=== PATIENT | female | born 1940 | race Caucasian/White ===

== ENCOUNTER 2019-01-04 17:33 | Emergency (ER) | payer MEDICARE ==
[~2019-01-04] VITALS: Ht 167.6 cm; Wt 102.1 kg
--- OUTSIDE RECORDS SUMMARY | 2019-01-04 17:39 | XMS REPORT | Clinical Summary ---
Author Author User, [employer] Organization Jeannette Horn DO, FACP Address Unknown Phone Allergies, Adverse Reactions, Alerts Allergy Name Reaction Description Start Date Severity Status Provider Allergies Unknown Conditions or Problems Problem Name Problem Code Onset Date Status Entry Date Provider Comment Standard Description Annotate GOUT 274.9 Active Jeannette Horn Gout, unspecified DIABETES MELLITUS, NONINSULIN DEPENDENT (NIDDM) 250.02 Active Jeannette Horn Diabetes mellitus without mention of complication, type II or unspecified type, uncontrolled HYPERTENSION 401.1 Active Jeannette Horn Benign essential hypertension HYPERCHOLESTEROLEMIA 272.0 Active Jeannette Horn Pure hypercholesterolemia FOOT PAIN, RIGHT 729.5 Active Jeannette Horn Pain in limb BACK PAIN 724.5 Active Jeannette Horn Backache, unspecified NEUROPATHY, IDIOPATHIC PERIPHERAL 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 Active Jeannette Horn Unspecified idiopathic peripheral neuropathy Medication List Medication Instructions Start Date Stop Date Generic Name NDC Status Provider Patient Instruction FML 0.1 % [facility] [address] ONE DROP IN RIGHT EYE TID FLUOROMETHOLONE 76148828983 Active Jeannette Horn VOLTAREN 1 % GEL APPLY TO AFFECTED AREA BID DICLOFENAC SODIUM 95862574069 Active Jeannette Horn INDOMETHACIN 50 MG CAPS 1 PO TID INDOMETHACIN 10951440653 Active Jeannette Horn TRIBENZOR 40-10-12.5 MG TABS 1 PO DAILY OLMESARTAN-AMLODIPINE- HCTZ 74906923582 Active Jeannette Horn GABAPENTIN 300 MG CAPS 1 PO DAILY GABAPENTIN 81942101485 Active Jeannette Horn BYSTOLIC 5 MG TABS 1 PO DAILY NEBIVOLOL HCL 88995644042 Active Jeannette Horn ALLOPURINOL 300 MG TABS 1 PO DAILY ALLOPURINOL 66716635879 Active Jeannette Horn ASPIRIN 81 MG TAB 1 PO every other day ASPIRIN 74108577378 Active Jeannette Horn MULTIVITAMINS TABS 1 PO QD MULTIPLE VITAMIN Active Jeannette Horn Vital Signs Date Name Value Unit Range Description blood pressure, diastolic - 8462-4 78 mm[Hg] BP waggoner blood pressure, systolic - 8480-6 130 mm[Hg] BP sys height E&M - 8302-2 66.5 [in_us] Bdy height pulse rate E&M - 8867-4 84 /min Heart rate respiratory rate E&M - 9279-1 14 /min Resp rate temperature E&M 98.9 [degF] Body temperature weight E&M - 3141-9 233 [lb_av] Weight Measured Diagnostic Results Date Name Value Unit Range Description Clinical Lists Update: CBC,CMP,FLP,TSH,FREE T4,HGA1C,FERRITIN,ESR,MICROALBUMIN - Chemistry Estimated Glomerular Filtration Rate (calc) 74 mL/min/1.73m2 glucose, plasma fasting 149 mg/dL albumin, serum 4.1 g/dL alkaline phosphatase, serum 98 U/L urea nitrogen, blood 20 mg/dL calcium, serum 9.5 mg/dL chloride, serum 108 mmol/L cholesterol, serum 199 mg/dL carbon dioxide, venous blood 20 mmol/L creatinine, serum 0.76 mg/dL very low density lipoproteins 53 mg/dL cholesterol/HDL ratio, serum, percent 5.0 anion gap, serum 16 sodium, serum 140 mmol/L triglyceride, serum, fasting 266 mg/dL bilirubin, serum, total 0.6 mg/dL alanine aminotransferase (SGPT), serum 29 U/L aspartate aminotransferase (SGOT), serum 25 U/L protein, total, serum 6.3 g/dL potassium, serum 4.3 mmol/L LDL cholesterol, serum 106 mg/dL thyroid stimulating hormone, serum 1.43 u[iU]/mL hemoglobin A1C, blood, as % of total hemoglobin 6.70 % HDL cholesterol, serum 40 mg/dL thyroxine, serum, free 0.99 ng/dL ferritin, serum 260.91 ng/mL Clinical Lists Update: CBC,CMP,FLP,TSH,FREE T4,HGA1C,FERRITIN,ESR,MICROALBUMIN - Hematology erythrocyte sedimentation rate 6 mm/h hematocrit, blood 42.2 % hemoglobin, blood 14.6 g/dL platelet count 288 10*3/mm3 erythrocyte (RBC) count 4.52 10*6/mm3 leukocyte count, blood 7.63 10*3/mm3 mean corpuscular volume, RBC 93.4 fL red blood cell distribution width 12.9 % Clinical Lists Update: CBC,CMP,FLP,TSH,FREE T4,HGA1C,FERRITIN,ESR,MICROALBUMIN - Urinalysis microalbumin, urine, semiquantitative 37.6 mg/dL Encounters Code Encounter Date Provider Facility CPT-54393 [facility] Vst, New Level III 09:58:34 CDT Jeannette [facility] OFF[facility]
--- OUTSIDE RECORDS SUMMARY | 2019-01-04 17:39 | XMS REPORT ---
Author Author [facility] Medical Staff Organization [employer] [facility] Address [address], [place] [address] Phone [phone] Care Team Providers Care Crop Research Scientist Name Role Phone JOSHUA AMAYA PP [phone] Summary purpose TRANSITION OF CARE AUTO GENERATION Chief Complaint and Reason for Visit No authorized Reason for Visit (Admitting Diagnosis) is available for this visit. Problem list No authorized problems tracked for continuity of care are available for this visit. Encounters No authorized problems tracked for encounter diagnoses are available for this visit. Medications No home medications recorded for this patient visit Allergies, adverse reactions, alerts Allergen Category Ingredient Status Reaction Severity Onset IV Dye, Iodine Containing Contrast Media Drug Allergy IV Dye, Iodine Containing Contrast Media Confirmed or Verified Nausea Hydrocodone Drug Allergy Hydrocodone Confirmed or Verified bad nightmares Immunizations No immunizations recorded for this patient visit Relevant diagnostic tests and/or laboratory data RESULTS Radiology Results [id number] MRI C-SPINE W/O CONT PACs Image DATE OF EXAM: Oct 25 2014 MRI 0218-MRI C SPINE WO CONTRAST : RADIOLOGY REPORT DATE OF SERVICE: 10/25/14 HISTORY: Patient has neck pain, left arm numbness, history of fall. [facility] CERVICAL SPINE WITHOUT CONTRAST 1430 HOURS Multiplanar multisequence study was performed. There is reversal of normal lordosis at approximately C4 to C6. There is disc-osteophyte complex on the right at C5-C6. This is moderate and chronic. There is mild contact with the spinal cord due to this disc protrusion and osteophyte formation. This is essentially unchanged from 12/06/2012. There is narrowing of the AP dimension of the spinal canal and thecal sac in the right paracentral location of mild degree at C5-C6 disc level. There is also moderate foraminal narrowing on the right due to presumed osteophyte. Left neural foramen is widely patent. Remaining discs fail to show any disc protrusion or bulging. No canal stenosis is seen anywhere else and neural foramina are patent at all other levels. Facet joints align normally. Cervicomedullary junction is at normal level and the cervical spinal cord has normal signal. 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 This is unchanged from 12/06/2012 exam. There is foraminal narrowing of moderate degree on the right at this same level. The remainder of the study fails to show any other significant findings. DO GARCIA Rivers/mariana 10/25/2014 14:52:10/25/2014 15:14:17 cc:Joshua Romero PA-C This document has been electronically Signed by: On: DATE OF EXAM: Oct 25 2014 MRI 0218-MRI C SPINE WO CONTRAST : RADIOLOGY REPORT DATE OF SERVICE: 10/25/14 HISTORY: Patient has neck pain, left arm numbness, history of fall. [facility]ING CERVICAL SPINE WITHOUT CONTRAST 1430 HOURS Multiplanar multisequence study was performed. There is reversal of normal lordosis at approximately C4 to C6. There is disc-osteophyte complex on the right at C5-C6. This is moderate and chronic. There is mild contact with the spinal cord due to this disc protrusion and osteophyte formation. This is essentially unchanged from 12/06/2012. There is narrowing of the AP dimension of the spinal canal and thecal sac in the right paracentral location of mild degree at C5-C6 disc level. There is also moderate foraminal narrowing on the right due to presumed osteophyte. Left neural foramen is widely patent. Remaining discs fail to show any disc protrusion or bulging. No canal stenosis is seen anywhere else and neural foramina are patent at all other levels. Facet joints align normally. Cervicomedullary junction is at normal level and the cervical spinal cord has normal signal. 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 This is unchanged from 12/06/2012 exam. There is foraminal narrowing of moderate degree on the right at this same level. The remainder of the study fails to show any other significant findings. DO Lon Rivers 10/25/2014 14:52:10/25/2014 15:14:17 cc:Joshua Romero PA-C This document has been electronically Signed by: PATTY LI DO On: Oct 25 20144:46P Result Amended on 2014-10-25 at 16:46:41. Previous status was AK. MRI L-SPINE W/O CONT PACs Image DATE OF EXAM: Oct 25 2014 MRI 0085-MRI L SPINE WO CONTRAST : RADIOLOGY REPORT DATE OF SERVICE: 10/25/14 HISTORY: Patient has back pain, pain in feet, history of fall. [facility]ING LUMBAR SPINE WITHOUT INTRAVENOUS CONTRAST 1430 HOURS Multiplanar multisequence study was performed. There is spondylolisthesis of L4 on L5 which measures approximately 5 mm and is unchanged from 12/06/2012. No definite spondylolysis at L4 is seen. There is decreased signal in the L1 vertebral body centrally on T1 and T2 weighted images. This suggests sclerosis. This is unchanged from 12/06/2012. Henceforth any comparison is due to 12/06/2012 study date. Degenerative endplate change is seen at L3-L4 and L4-L5. There is prominent narrowing of the L2-L3 interspace as well as L3-L4 and L4-L5 interspace. The L1-L2 disc shows minute amount of bulge and no central canal stenosis. The neural foramina are widely patent bilaterally. There is mild degenerative change in facet joints at L1-L2. At the L2-L3 disc there is left paracentral and lateral osteophyte formation of mild to moderate degree. This causes extradural impression on the thecal sac. No central canal stenosis is seen. The neural foramen is moderately narrowed on the left by osteophyte. At L3-L4 disc level there is disc-osteophyte complex diffusely from right to left this along with prominent ligamentum flavum causes canal to be lower limits of normal at disc level. The neural foramen on the left is mildly narrowed. The right neural foramen is narrowed. At L4-L5 there is spondylolisthesis. Marked degenerative change in facet joints is seen. There does not appear to be any osteophyte formation or disc protrusion in relation to the L5 vertebral body. Prominent ligamentum flavum is seen and canal is lower limits of normal. The foramina are patent bilaterally at this level. At L5-S1 there is no disc protrusion or bulging. No central canal stenosis or foraminal narrowing are seen. Degenerative change of the facet joints is severe at this level as well. No paraspinal abnormality is seen. IMPRESSION: Numerous findings as given in body of report. Patty Li DO MW/mariaan 10/25/2014 14:52:00 / 10/25/2014 15:16:57 cc:Joshua Romero PA-C This document has been electronically Signed by: On: DATE OF EXAM: Oct 25 2014 MRI 0085-MRI L SPINE WO CONTRAST : RADIOLOGY REPORT DATE OF SERVICE: 10/25/14 HISTORY: Patient has back pain, pain in feet, history of fall. MAGNETIC RESONANCE IMAGING LUMBAR SPINE WITHOUT INTRAVENOUS CONTRAST 1430 HOURS Multiplanar multisequence study was performed. There is spondylolisthesis of L4 on L5 which measures approximately 5 mm and is unchanged from 12/06/2012. No definite spondylolysis at L4 is seen. There is decreased signal in the L1 vertebral body centrally on T1 and T2 weighted images. This suggests sclerosis. This is unchanged from 12/06/2012. Henceforth any comparison is due to 12/06/2012 study date. Degenerative endplate change is seen at L3-L4 and L4-L5. There is prominent narrowing of the L2-L3 interspace as well as L3-L4 and L4-L5 interspace. The L1-L2 disc shows minute amount of bulge and no central canal stenosis. The neural foramina are widely patent bilaterally. There is mild degenerative change in facet joints at L1-L2. At the L2-L3 disc there is left paracentral and lateral osteophyte formation of mild to moderate degree. This causes extradural impression on the thecal sac. No central canal stenosis is seen. The neural foramen is moderately narrowed on the left by osteophyte. At L3-L4 disc level there is disc-osteophyte complex diffusely from right to left this along with prominent ligamentum flavum causes canal to be lower limits of normal at disc level. The neural foramen on the left is mildly narrowed. The right neural foramen is narrowed. At L4-L5 there is spondylolisthesis. Marked degenerative change in facet joints is seen. There does not appear to be any osteophyte formation or disc protrusion in relation to the L5 vertebral body. Prominent ligamentum flavum is seen and canal is lower limits of normal. The foramina are patent bilaterally at this level. At L5-S1 there is no disc protrusion or bulging. No central canal stenosis or foraminal narrowing are seen. Degenerative change of the facet joints is severe at this level as well. No paraspinal abnormality is seen. IMPRESSION: Numerous findings as given in body of report. Patty Li DO /mariana 10/25/2014 14:52:00 / 10/25/2014 15:16:57 cc:Joshua Romero PA-C This document has been electronically Signed by: PATTY LI DO On: Oct 25 20144:46P Result Amended on 2014-10-25 at 16:46:47. Previous status was AK. History of procedures No procedures recorded for this patient visit. Functional status No functional or cognitive status observations are available for this visit. Vital signs No authorized vital signs are available for this visit. Social history No Social History or smoking status observations were recorded for this visit. ( Unknown if ever smoked.) Treatment Plan No treatment plan text is available for this visit. Hospital discharge instructions No discharge instruction text is available for this visit.
--- OUTSIDE RECORDS SUMMARY | 2019-01-04 17:39 | XMS REPORT | Clinical Summary ---
Author Author User, [employer] Organization Jeannette Horn DO, FACP Address Unknown [...] ONE DROP IN RIGHT EYE TID FLUOROMETHOLONE 41068239725 Active Jeannette Horn VOLTAREN 1 % GEL APPLY TO AFFECTED AREA BID DICLOFENAC SODIUM 89103872701 Active Jeannette Horn INDOMETHACIN 50 MG CAPS 1 PO TID INDOMETHACIN 34755857786 Active Jeannette Horn TRIBENZOR 40-10-12.5 MG TABS 1 PO DAILY OLMESARTAN-AMLODIPINE- HCTZ 25045378073 Active Jeannette Horn GABAPENTIN 300 MG CAPS 1 PO DAILY GABAPENTIN 23796129622 Active Jeannette Horn BYSTOLIC 5 MG TABS 1 PO DAILY NEBIVOLOL HCL 85494631370 Active Jeannette Horn ALLOPURINOL 300 MG TABS 1 PO DAILY ALLOPURINOL 02736240919 Active Jeannette Horn ASPIRIN 81 MG TAB 1 PO every other day ASPIRIN 99646644520 Active Jeannette Horn MULTIVITAMINS TABS 1 PO [...] E&M - 3141-9 233 [lb_av] Weight Measured Encounters Code Encounter Date Provider Facility CPT-61004 [facility] Vst, New Level III 09:58:34 CDT Jeannette [facility]
--- OUTSIDE RECORDS SUMMARY | 2019-01-04 17:40 | XMS REPORT ---
Author Author [facility] Medical Staff Organization [facility] [employer] [facility] Address [address], [place] [address] Phone [phone] Care Team Providers Care Network Strategist Name Role Phone JOSHUA AMAYA PP [phone] Summary purpose TRANSITION OF CARE AUTO GENERATION Chief Complaint and Reason for Visit Admit Diagnosis 1 CERVICALGIA Problem list No authorized problems tracked for [...] tests and/or laboratory data RESULTS Radiology Results [id number] MRI C-SPINE W/O CONT PACs Image DATE [...] DO GARCIA Rivers/mariana 10/25/2014 14:52:10/25/2014 15:14:17 cc:Joshua Simons PA-C This document has been electronically Signed [...] DO GARCIA Rivers/mariana 10/25/2014 14:52:10/25/2014 15:14:17 cc:Joshua Nick PA-C This document has been electronically Signed by: JEN MOORE, PATTY On: Oct 25 20144:46P Result Amended on [...] in body of report. Patty Li DO /va 10/25/2014 14:52:00 / 10/25/2014 15:16:57 cc:Joshua Simons PA-C This document has been electronically Signed [...] in body of report. Patty Li DO MW/nh 10/25/2014 14:52:00 / 10/25/2014 15:16:57 cc:Joshua Simons PA-C This document has been electronically Signed by: PATYT LI DO On: Oct 25 20144:46P Result Amended on 2014-10-25 at 16:46:47. Previous status was AK. History of procedures Procedure Code Code Type Description Date Performed Performing Physician [id number] CPT-4 MRI NECK SPINE W/O DYE 10-25-2014 JOSHUA SIMONS [id number] CPT-4 MRI LUMBAR SPINE W/O DYE 10-25-2014 JOSHUA SIMONS Functional status No functional or cognitive status [...]
[2019-01-04] MEDS ORDERED: AMLODIPINE (18:03)
[2019-01-04] MEDS ORDERED: AMOXICILLIN 500 MG CAPSULE (18:03)
[2019-01-04] MEDS ORDERED: GLYBURIDE 5 MG TABLET (18:03)
[2019-01-04] MEDS ORDERED: OLMESARTAN (18:03)
[2019-01-04] MEDS ORDERED: ALLOPURINOL 100 MG TABLET (18:03)
[2019-01-04] MEDS ORDERED: HYDROCODONE-ACETAMIN 10-325 MG (18:03)
[2019-01-04] MEDS ORDERED: HYDROCHLOROTHIAZIDE (18:03)
[2019-01-04] MEDS ORDERED: METOPROLOL SUCC ER 50 MG TAB (18:03)
[2019-01-04 18:07] VITALS: BP_SYST 145; BP_SYST 157; BP_SYST 162; BP_DIAS 71; BP_DIAS 82; BP_DIAS 84
[2019-01-04 18:51] LABS: BILIRUBIN,URINE NEGATIVE (NEGATIVE); CLARITY,URINE SLIGHTLY CLOUDY; COLOR,URINE YELLOW; GLUCOSE, URINE (UA) NEGATIVE (NEGATIVE); KETONES,URINE NEGATIVE (NEGATIVE); LEUKOCYTE ESTERASE ,URINE 3+ (NEGATIVE); NITRITE,URINE NEGATIVE (NEGATIVE); PH,URINE 6 (5-9); PROTEIN,URINE 3+ (NEGATIVE); UROBILINOGEN,URINE NORMAL (NORMAL)
--- NOTE | 2019-01-04 18:59 | ED General ---
General Chief Complaint: Dizziness/Syncope Stated Complaint: DIZZY / BLACKING OUT Nursing Triage Note: PT CO OF DIZZINESS SINCE WEDNESDAY, WAS SEEN BY PCP, EYE , NO RELIEF. PT STATES WHEN SHE LAYS DOWN SHE GETS DIZZY. UNABLE TO LAY FLAT FOR MRI OF HEAD TODAY. PT ALSO STATES HAS NECK PAIN /10 FROM ARTHRITIS 07/13 FROM R KNEE PAIN Nursing Sepsis Screen: No Definite Risk Source of Information: Patient (SOMEWHAT VAGUE HISTORIAN), Family (DAUGHTER) History of Present Illness Date Seen by Provider: Jan 04, 2019 Time Seen by Provider: 18:10 Initial Comments PT ARRIVES VIA POV FROM HOME PT STATES "I DYLLAN BLACK OUT" --SYMPTOMS ONGOING SINCE WEDNESDAY IS UNCLEAR IF SHE HAS ACTUALLY LOST CONSCIOUSNESS, BUT STATES SOMETIMES "THINGS GO BLACK" AND ONE TIME SHE FELL/LEANED AGAINST THE WALL. HAS BEEN DIZZY--MOSTLY WHEN SHE LAYS DOWN. NO HEADACHE NO NEW CHANGES IN VISION--HAS MACULAR DEGENERATION IN RIGHT EYE, AND SAW HER EYE DR YESTERDAY AND WAS TOLD THAT HER MACULAR DEGENERATION HAS GOTTEN MUCH WORSE SINCE OCTOBER BUT HER OPTIC NERVE LOOKED GOOD HAS ALSO BEEN SEEN BY SUPERVISOR MOLD SHOP UVALDO SIMONS AND HAD MRI ORDERED FOR TODAY, BUT DID NOT HAVE IT DONE, BECAUSE SHE CAN'T LAY FLAT NO HEADACHE NO NEW PARESTHESIAS OR MOTOR DEFICITS---HAS ONGOING TINGLING IN HER HANDS, WITH CHRONIC NECK/BACK/SHOULDER AND ARM PAIN. ALSO CHRONIC KNEE PAIN --HAS NOT TAKEN HER PAIN MEDICATIONS TODAY NO CHEST PAIN NO SHORTNESS OF BREATHS STATES BLOOD PRESSURE HAS BEEN "UP AND DOWN"--HIGHEST WAS 176/58 AND LOWEST WAS 140/80 NO NAUSEA/VOMITING/DIARRHEA NO ABDOMINAL PAIN NO FEVER OR RECENT ILLNESS HAS ONGOING URINARY FREQUENCY AND NOCTURIA, BUT HAS INCREASED RECENTLY--THOUGHT TO BE DUE TO BP MEDICATION WITH DIURETIC. NO PAIN ON URINATION OR LOWER ABDOMEN OR LOW BACK PAIN DID HAVE 2 TEETH PULLED 1 WEEK AGO AND HAS BEEN ON AMOXIL, HAS 2 PILLS LEFT. DOES HAVE CHRONIC SINUS PROBLEMS--SAW ENT 3 YEARS AGO, DOES NOT TAKE MEDICATIONS FOR HER SINUSES. NO SINUS PAIN OR DRAINAGE AT THIS TIME. PT WAS DX WITH UTERINE CANCER APRIL 2017. HAS HAD HYST/BSO, AND HAS HAD RECURRENCE OF TUMOR IN [place] AND HAD BIOPSY JUL 2018. HAS HAD SOME VAGINAL BLEEDING AND DISCHARGE WAS VERY BLOODY TODAY WHEN SHE URINATED. NO VAGINAL PAIN PT [facility] [place] AND IS ON KEYTRUDA NO NEW MEDICATIONS OR CHANGES IN DOSES PT IS DIABETIC BUT DOES NOT OWN A GLUCOMETER, THEREFORE NEVER CHECKS HER BLOOD GLUCOSE PCP: VERITO SIMONS Allergies and Home Medications Allergies Coded Allergies: No Known Drug Allergies (Unverified , 01/04/19) Home Medications Nitrofurantoin Monohyd/M-Cryst 100 Mg Capsule, 100 MG PO BID Prescribed by: NYDIA SOFIA on 01/04/192046 Patient Home Medication List Home Medication List Reviewed: Yes Review of Systems Review of Systems Constitutional: see HPI; No chills, No diaphoresis; dizziness; No fever EENTM: see HPI Respiratory: no symptoms reported Cardiovascular: see HPI, edema (BETTER THAN NORMAL), other (NEAR-SYNCOPE) Gastrointestinal: no symptoms reported Genitourinary: see HPI Musculoskeletal: see HPI Skin: no symptoms reported Psychiatric/Neurological: See HPI; Denies Headache Hematologic/Lymphatic: No Symptoms Reported Immunological/Allergic: no symptoms reported Past [id number]-[id number] Hx Patient Social History Alcohol Use: Denies Use Recreational Drug Use: No Smoking Status: Never a Smoker Recent Foreign Travel: No Contact w/Someone Who Travel: No Recent Infectious Disease Expo: No Recent Hopitalizations: No Past Medical History Surgeries: Yes (HYST/BSO 04/2017; BIOPSY OF VAGINAL MASS/RECURRENT TUMOR 2017) Appendectomy, Hysterectomy, Oophorectomy, Orthopedic Respiratory: No Cardiac: Yes Chronic Edema/Swelling, Hypertension Neurological: Yes (CHRONIC PARESTHESIAS TO HANDS-DUE TO CHRONIC NECK PAIN/ DEGENERATIVE DISC DISEASE) 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, 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 Genitourinary: No Gastrointestinal: No Musculoskeletal: Yes (CHRONIC BACK, NECK AND KNEE PAIN ) Degenerate Disk Disease, Arthritis, Chronic Back Pain, Gout Endocrine: Yes (DOES NOT OWN GLUCOMETER/NEVER CHECKS BLOOD GLUCOSE) Diabetes, Non-Insulin dep HEENT: Yes Macular Degeneration Cancer: Yes (UTERINE CANCER DX APRIL 2017--S/P HYST/BSO AND IS CURRENTLY ON KEYTRUDA) Uterine Did You Recieve Any Treatments: Yes What Type of Treatment Did You: Chemotherapy, Surgical Intervention Psychosocial: No Integumentary: No Blood Disorders: No Physical Exam Vital Signs Vital Signs - First Documented 01/04/19 17:40 Temp 97.9 Pulse 90 Resp 18 B/P (MAP) 156/85 (108) Pulse Ox 97 Capillary Refill : Less Than 3 Seconds Height, Weight, BMI Height: 5'6.00" Weight: 225lbs. oz. 102.250947dq; BMI Method:Stated General Appearance: No Apparent Distress Eyes: Bilateral Eye Normal Inspection, Bilateral Eye PERRL HEENT: PERRL/EOMI, Normal ENT Inspection, Pharynx Normal Neck: Full Range of Motion, Normal Inspection, Supple; No Carotid Bruit, No JVD ; Tender Lateral, Tender Midline, Other (CHRONIC PAIN/TENDERNESS TO NECK) Respiratory: Normal Breath Sounds, No Respiratory Distress Cardiovascular: Regular Rate, Rhythm, No Murmur, Normal Peripheral Pulses Gastrointestinal: No Organomegaly, No Pulsatile Mass, Non Tender, Soft Back: Normal Inspection, No CVA Tenderness Extremity: Normal Capillary Refill, No Calf Tenderness, Pedal Edema (TRACE BILATERALLY) Neurologic/Psychiatric: Alert, Oriented x3, No Motor/Sensory Deficits, Normal Mood/Affect, 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 Norm as Tested Skin: Normal Color, Warm/Dry; No Rash Progress/Results/Core Measures Suspected Sepsis Recent Fever Within 48 Hours: No Infection Criteria Present: None New/Unexplained Altered Menta: No Sepsis Screen: No Definite Risk SIRS Temperature:97.9 Pulse: 90 Respiratory Rate: 18 Laboratory Tests 01/04/19 19:10: White Blood Count 7.7 Blood Pressure 162 /82 Mean: 108 Laboratory Tests 01/04/19 19:10: Creatinine 0.90, INR Comment 1.0, Platelet Count 234, Total Bilirubin 0.4 Results/Orders Lab Results Laboratory Tests Test 01/04/19 18:41 01/04/19 19:10 Range/Units Urine Color YELLOW Urine Clarity SLIGHTLY CLOUDY Urine pH 6 5-9 Urine Specific [employer] 1.015 L 1.016-1.022 Urine Protein 3+ H NEGATIVE Urine Glucose (UA) NEGATIVE NEGATIVE Urine Ketones NEGATIVE NEGATIVE Urine Nitrite NEGATIVE NEGATIVE Urine Bilirubin NEGATIVE NEGATIVE Urine Urobilinogen NORMAL NORMAL MG/DL Urine Leukocyte Esterase 3+ H NEGATIVE Urine RBC (Auto) 5+ H NEGATIVE Urine RBC TNTC H /HPF Urine WBC >100 H /HPF Urine Squamous Epithelial Cells 5-10 /HPF Urine Crystals NONE /LPF Urine Bacteria MODERATE H /HPF Urine Casts NONE /LPF Urine Mucus NEGATIVE /LPF Urine Culture Indicated YES White Blood Count 7.7 4.3-11.0 10^3/uL Red Blood Count 3.65 L 4.35-5.85 10^6/uL Hemoglobin 12.2 11.5-16.0 G/DL Hematocrit 36 35-52 % Mean Corpuscular Volume 98 80-99 FL Mean Corpuscular Hemoglobin 33 25-34 PG Mean Corpuscular Hemoglobin Concent 34 32-36 G/DL Red Cell Distribution Width 12.5 10.0-14.5 % Platelet Count 234 130-400 10^3/uL Mean Platelet Volume 8.7 7.4-10.4 FL Neutrophils (%) (Auto) 64 42-75 % Lymphocytes (%) (Auto) 22 12-44 % Monocytes (%) (Auto) 9 0-12 % Eosinophils (%) (Auto) 4 0-10 % Basophils (%) (Auto) 1 0-10 % Neutrophils # (Auto) 5.0 1.8-7.8 X 10^3 Lymphocytes # (Auto) 1.7 1.0-4.0 X 10^3 Monocytes # (Auto) 0.7 0.0-1.0 X 10^3 Eosinophils # (Auto) 0.3 0.0-0.3 10^3/uL Basophils # (Auto) 0.0 0.0-0.1 10^3/uL Prothrombin Time 13.6 12.2-14.7 SEC INR Comment 1.0 0.8-1.4 Activated Partial Thromboplast Time 31 24-35 SEC Sodium Level 139 135-145 MMOL/L Potassium Level 3.7 3.6-5.0 MMOL/L Chloride Level 103 98-107 MMOL/L Carbon Dioxide Level 26 21-32 MMOL/L Anion Gap 10 5-14 MMOL/L Blood Urea Nitrogen 19 H 7-18 MG/DL Creatinine 0.90 0.60-1.30 MG/DL Estimat Glomerular Filtration Rate 60 BUN/Creatinine Ratio 21 Glucose Level 102 70-105 MG/DL Calcium Level 9.9 8.5-10.1 MG/DL Corrected Calcium 9.9 8.5-10.1 MG/DL Magnesium Level 2.1 1.8-2.4 MG/DL Total Bilirubin 0.4 0.1-1.0 MG/DL Aspartate Amino Transf (AST/SGOT) 23 5-34 U/L Alanine Aminotransferase (ALT/SGPT) 21 0-55 U/L Alkaline Phosphatase 75 40-136 U/L Troponin I < 0.028 <0.028 NG/ML Total Protein 6.6 6.4-8.2 GM/DL Albumin 4.0 3.2-4.5 GM/DL TSH [place] Testing 1.56 0.35-4.94 UIU/ML My Orders Orders - NYDIA SOFIA DO Ct Head/Face/Cervical Wo (01/04/19 18:10) Cbc With Automated Diff (01/04/19 18:10) Comprehensive Metabolic Panel (01/04/19 18:10) Magnesium (01/04/19 18:10) Protime With Inr (01/04/19 18:10) Partial Thromboplastin Time (01/04/19 18:10) Thyroid Analyzer (01/04/19 18:10) Troponin I (01/04/19 18:10) Ua Culture If Indicated (01/04/19 18:10) Ekg Tracing (01/04/19 18:10) Monitor-Rhythm Ecg Trace Only (01/04/19 18:10) Orthostatic Vital Signs (Adult (01/04/19 18:10) Urine Culture (01/04/19 18:41) Ketorolac Injection (Toradol Injection) (01/04/19 19:45) Ceftriaxone For Iv Use (Rocephin For I (01/04/19 19:45) Chest 1 View, Ap/Pa Only (01/04/19 19:49) Saline Lock/Iv-Start (01/04/19 19:50) Ns Iv 1000 Ml (Sodium Chloride 0.9%) (01/04/19 19:50) Ns Iv 1000 Ml (Sodium Chloride 0.9%) (01/04/19 19:51) Medications Given in ED Current Medications Medications Dose Ordered Sig/Emily Route Start Time Stop Time Status Last Admin Dose Admin Ceftriaxone Sodium 1000 mg/ Sterile Water 10 ml @ 200 mls/hr ONCE ONCE IV 01/04/19 19:45 01/04/19 19:47 DC 01/04/19 19:54 200 MLS/HR Ketorolac Tromethamine 30 mg ONCE ONCE IVP 01/04/19 19:45 01/04/19 19:46 DC 01/04/19 19:54 30 MG Sodium Chloride 1,000 ml @ 0 mls/hr Q0M ONCE IV 01/04/19 19:50 01/04/19 19:53 DC 01/04/19 19:55 0 MLS/HR Vital Signs/I&O 01/04/19 01/04/19 17:40 18:07 Temp 97.9 Pulse 90 90 96 101 Resp 18 B/P (MAP) 156/85 (108) 162/82 (108) 157/84 (108) 145/71 (95) Pulse Ox 97 Capillary Refill : Less Than 3 Seconds Blood Pressure Mean: 108 Progress Note : Progress Note ASYMPTOMATIC DURING ER STAY ECG Initial ECG Impression Date: Jan 04, 2019 Initial ECG Impression Time: 18:22 Initial ECG Rate: 85 Initial ECG Rhythm: Normal Sinus Initial ECG Comparisson: No Previous ECG Available Diagnostic Imaging Comments CT HEAD/MAXILLOFACIALS/CERVICAL SPINE--NO ACUTE PROCESS, SEVERE DEGENERATIVE CHANGES OF CERVICAL SPINE, WITH MILD CANAL STENOSIS--PER RADIOLOGIST REPORT AT 1935 CXR--NO ACUTE PROCESS, PER RADIOLOGIST REPORT @ 2108 Reviewed: Reviewed by Me Departure Impression Primary Impression: Dizziness Additional Impressions: Near syncope UTI (urinary tract infection) Uterine cancer Disposition: 01 HOME, SELF-CARE Condition: Improved Departure-Patient Inst. Referrals: NO,LOCAL PHYSICIAN (PCP/Family) Primary Care Physician Patient Instructions: Dizziness, Nonvertigo, (DC), Near Fainting (DC), Urinary Tract Infections in Adults Add. Discharge Instructions: HOME, REST LOTS OF CLEAR LIQUIDS--NO COFFEE, POP OR TEA FOLLOW UP WITH YOUR DR IN 2-3 DAYS FOR FURTHER CARE RETURN TO ER IF WORSE All discharge instructions reviewed with patient and/or family. Voiced understanding. Scripts Nitrofurantoin Monohyd/M-Cryst (Macrobid 100 mg Capsule) 100 Mg Capsule 100 MG PO BID, #20 CAP Prov: NYDIA SOFIA DO 01/04/19 NYDIA SOFIA DO Jan 04, 2019 18:59
--- NOTE | 2019-01-04 19:02 | NUR ---
REPORT TO MAYRA HERNANDEZ
[2019-01-04 19:16] LABS: BACTERIA,URINE MODERATE /HPF; RBC,URINE TNTC /HPF; WBC,URINE >100 /HPF
[2019-01-04 19:20] LABS: BASOPHILS % (AUTO) 1 % (0-10); EOSINOPHILS # (AUTO) 0.3 10^3/uL (0.0-0.3); EOSINOPHILS % (AUTO) 4 % (0-10); HEMATOCRIT 36 % (35-52); HEMOGLOBIN 12.2 G/DL (11.5-16.0); LYMPHOCYTES # (AUTO) 1.7 X 10^3 (1.0-4.0); LYMPHOCYTES % (AUTO) 22 % (12-44); MEAN CORPUSCULAR HEMOGLOBIN 33 PG (25-34); MEAN CORPUSCULAR HGB CONC 34 G/DL (32-36); MEAN CORPUSCULAR VOLUME 98 FL (80-99); MEAN PLATELET VOLUME 8.7 FL (7.4-10.4); MONOCYTES # (AUTO) 0.7 X 10^3 (0.0-1.0); MONOCYTES % (AUTO) 9 % (0-12); NEUTROPHILS % (AUTO) 64 % (42-75); PLATELET COUNT 234 10^3/uL (130-400); RED CELL DISTRIBUTION WIDTH 12.5 % (10.0-14.5); WHITE BLOOD COUNT 7.7 10^3/uL (4.3-11.0)
--- NOTE | 2019-01-04 19:30 | Diagnostic Imaging Report ---
PROCEDURE: CT head, face, and cervical spine without contrast. TECHNIQUE: Multiple contiguous axial images were obtained through the head, neck, and facial bones without the use of intravenous contrast. Sagittal and coronal reformations through the cervical spine and facial bones were also performed. Auto Exposure Controls were utilized during the CT exam to meet ALARA standards for radiation dose reduction. INDICATION: Dizziness since Wednesday. Neck pain. COMPARISON: None. FINDINGS: CT HEAD: No acute intracranial hemorrhage is seen. There is no significant midline shift or mass effect. Ventricles and cortical sulci appear age-appropriate. Scattered areas of hypoattenuation in the white matter are likely from chronic microvascular disease. No CT evidence of acute territorial ischemia seen. The calvarium appears intact. CT FACE: The pterygoid plates are intact. The mandible is intact. The zygomatic arches are intact. The visualized paranasal sinuses are clear, although the right frontal sinus is not well pneumatized. The globes appear intact. No postseptal edema is seen. The soft tissues about the face are otherwise unremarkable. The patient is partially edentulous. CT CERVICAL SPINE: There is mild reversal of the cervical lordosis centered at C5. There is grade 1 anterolisthesis of C3 on C4. There are severe degenerative changes at C3-4, C4-5, C5-6 and C6-7. Prominent posterior disc osteophyte complex at C5-6 causes mild spinal canal narrowing. No acute fractures seen. There is apical pleural scarring. The surrounding soft tissues are otherwise unremarkable. IMPRESSION: 1. No acute intracranial hemorrhage or CT evidence of acute territorial ischemia. 2. No acute facial injury or postseptal orbital edema. 3. Advanced degenerative changes in the cervical spine. No acute fracture seen. Dictated by: Dictated on workstation # [id number]
[2019-01-04 19:34] LABS: PROTHROMBIN TIME PATIENT 13.6 SEC (12.2-14.7)
[2019-01-04 19:39] LABS: ALANINE AMINOTRANSFERASE 21 U/L (0-55); ALKALINE PHOSPHATASE 75 U/L (40-136); BILIRUBIN,TOTAL 0.4 MG/DL (0.1-1.0); BUN/CREATININE RATIO 21; CALCIUM 9.9 MG/DL (8.5-10.1); CARBON DIOXIDE 26 MMOL/L (21-32); CHLORIDE 103 MMOL/L (98-107); GFR ESTIMATED 60; GLUCOSE 102 MG/DL (70-105); MAGNESIUM 2.1 MG/DL (1.8-2.4); POTASSIUM 3.7 MMOL/L (3.6-5.0); SODIUM 139 MMOL/L (135-145); TOTAL PROTEIN 6.6 GM/DL (6.4-8.2)
[2019-01-04] MEDS ORDERED: cefTRIAXone FOR IV USE 1,000 MG in WATER (STERILE) FOR INJECTION 10 ML IV ONE (19:45)
[2019-01-04] MEDS ORDERED: KETOROLAC 30 MG/ML VIAL IVP ONE (19:45)
[2019-01-04] MEDS ORDERED: NS IV 1000 ML 1,000 ML IV ONE (19:50)
[2019-01-04] MEDS ORDERED: NS IV 1000 ML 1,000 ML ONE (19:51)
[2019-01-04 20:08] LABS: TSH (THYROID ANALYZER) 1.56 UIU/ML (0.35-4.94)
--- NOTE | 2019-01-04 20:42 | Diagnostic Imaging Report ---
INDICATION: Syncope. FINDINGS: Upright chest shows heart size and vascularity to be upper normal. The lungs are clear. There is no effusion or pneumothorax. There is no bony abnormality. IMPRESSION: No acute abnormality is seen. Dictated by: Dictated on workstation # [id number]
[2019-01-04] MEDS ORDERED: NITR-65 PO (20:47)
[2019-01-04 21:05] VITALS: BP 146/80
== END 2019-01-04 21:08 | disposition home or self-care (01) ==
LOC: EDUNIT# 17:33 → ER 17:35
DX: R42 Dizziness and giddiness (principal); R55 Syncope and collapse; N39.0 Urinary tract infection, site not specified; C54.1 Malignant neoplasm of endometrium; I10 Essential (primary) hypertension; M10.9 Gout, unspecified; E11.9 Type 2 diabetes mellitus without complications; Z92.21 Personal history of antineoplastic chemotherapy; Z90.710 Acquired absence of both cervix and uterus; Z90.49 Acquired absence of other specified parts of digestive tract; Z98.890 Other specified postprocedural states
CPT/HCPCS: 36415; 70450; 70486; 71045; 72125; 80053; 81000; 83735; 84443; 84484; 85025; 85610; 85730; 87088; 93041; 96361; 96365; 96375

== ENCOUNTER 2019-01-08 14:14 | Inpatient (IN) | payer MEDICARE | END 2019-01-12 14:50 | disposition other institution (70) | LOC: 4TH 01-09 14:50 → ER 14:14 → ICU 16:19 | DX: I26.99 Other pulmonary embolism without acute cor pulmonale (principal); N30.00 Acute cystitis without hematuria; C55 Malignant neoplasm of uterus, part unspecified; C79.82 Secondary malignant neoplasm of genital organs; C78.01 Secondary malignant neoplasm of right lung; J44.9 Chronic obstructive pulmonary disease, unspecified; E11.9 Type 2 diabetes mellitus without complications; I10 Essential (primary) hypertension; H35.30 Unspecified macular degeneration; M19.91 Primary osteoarthritis, unspecified site; M54.9 Dorsalgia, unspecified; M10.9 Gout, unspecified; Z79.899 Other long term (current) drug therapy; Z87.891 Personal history of nicotine dependence; Z92.21 Personal history of antineoplastic chemotherapy ==

== ENCOUNTER 2019-03-12 12:28 | Inpatient (IN) | payer MEDICARE ==
[~2019-03-12] VITALS: Ht 167.6 cm; Wt 97.1 kg
[~2019-03-12 12:28] MED LIST: ALLO100T PO; ALLOPURINOL 100 MG TABLET; AMLODIPINE; AMOXICILLIN 500 MG CAPSULE; APIX5TAB PO; CHOL10007 PO; CLOB50SO TOP; GLYB5TAB6 PO; GLYBURIDE 5 MG TABLET; HYDR-3820 PO; HYDROCHLOROTHIAZIDE; HYDROCODONE-ACETAMIN 10-325 MG; IPRA3AMP31 INH; KETO120S2 TOP; L.AC1CAP6 PO; LATA2.5D5 OD; METO-370 PO; METOPROLOL SUCC ER 50 MG TAB; NITR-65 PO; NITR100C10 PO; OLME1TAB54 PO; OLMESARTAN; OMEG10005 PO; PEDI1TAB46 PO
--- OUTSIDE RECORDS SUMMARY | 2019-03-12 12:34 | XMS REPORT | Continuity of Care Document ---
Author Organization Unknown Address Unknown Allergies Active Description Code Type Severity Reaction Onset Reported/Identified Relationship to Patient Clinical Status Yes No known allergies Drug N/A N/A Yes LEVAQUIN UNKNOWN UNKNOWN Yes SULFA (SULFONAMIDE ANTIBIOTICS) MODERATE MODERATE Yes SULFA (SULFONAMIDE ANTIBIOTICS) MODERATE OTHER Yes No Known Drug Allergies [id number] Drug Allergy Unknown N/A 01/04/2019 Medications Medication Packaging Start Date Stop Date Route Dosage Sig ACETAMINOPHEN ORAL TABLET 325mg(Tylenol) MG 02/07/2019 03/09/2019 PRN EVERY 6 Hour ACETAMINOPHEN ORAL TABLET 325mg(Tylenol) MG 02/07/2019 03/09/2019 PRN EVERY 6 Hour INSULIN ASPART PEN INJ 100 UNITS/CC (NOVOLOG FLEXPEN) 02/07/2019 03/09/2019 ACHS&0630,1130,1630,2100 Vancomycin-water IV piggyback 1 Gm Premix GM 02/07/2019 02/07/2019 ONCE&1730 NORMAL SALINE 1000CC IV BAG INJ 0.9 % (NS 1000CC IV BAG) ml 02/07/2019 02/14/2019 CONTINUOUSEVERY 0 Hour ALPRAZOLAM TAB 0.25 MG (XANAX) MG 02/07/2019 02/17/2019 PRN Q6H Ondansetron 4mg oral DissolveTab (Zofran) MG 02/07/2019 03/09/2019 PRN Q4H TRAMADOL TAB 50 MG (ULTRAM) MG 02/07/2019 03/09/2019 PRN Q6H CLONIDINE TAB 0.1 MG (CATAPRES) MG 02/07/2019 02/14/2019 PRN Q6H ACETAMINOPHEN SUPPOS SUP 650 MG (TYLENOL) MG 02/07/2019 02/14/2019 PRN Q4H ONDANSETRON VIAL INJ 4 MG/2CC (ZOFRAN 2CC VIAL) MG 02/07/2019 02/14/2019 PRN Q6H CALCIUM CARBONATE TAB 500 MG (TUMS) MG 02/07/2019 02/14/2019 PRN Q6H DIPHENHYDRAMINE CAP 25 MG (BENADRYL) MG 02/07/2019 02/14/2019 PRN Q6H PROMETHAZINE VIAL INJ 25 MG/CC (PHENERGAN VIAL) MG 02/07/2019 02/17/2019 PRN Q6H HYDROCODONE/APAP 10/325 TAB 10 /325 (ALTON-TAB 10/325) TAB 02/07/2019 03/09/2019 PRN Q6H HYDROCODONE/APAP 5MG/325MG TAB 5 MG/325MG (ALTON-TAB 5/325) TAB 02/07/2019 02/17/2019 PRN Q6H Meropenem-0.9% sodium chloride IV piggyback 500mg MG 02/07/2019 02/17/2019 Q6H&0000,0600,1200,1800 ALUM/MAG/SIMETH 30CC LIQ (MYLANTA PLUS) cc 02/07/2019 02/17/2019 PRN Q4H GUAIFENESIN - DM LIQ (ROBITUSSIN DM) MLS 02/07/2019 02/14/2019 PRN Q4H IBUPROFEN TAB 400 MG (MOTRIN) MG 02/07/2019 02/14/2019 PRN Q6H BENZONATATE CAP 100 MG (TESSALON) MG 02/07/2019 03/09/2019 PRN TID Docusate sodium 100mg oral capsule (COLACE) 02/07/2019 03/09/2019 PRN BID GLYBURIDE TAB 5 MG (MICRONASE) MG 02/07/2019 03/09/2019 BID&0800,2000 SENNA CONC/DOCUSATE TAB (SENOKOT S) TAB 02/07/2019 03/09/2019 PRN BID LACTULOSE SYRUP LIQ 20 GM/30CC (CHRONULAC SYRUP) GM 02/07/2019 03/09/2019 BID&0800,2000 APIXABAN TAB 5 MG (ELIQUIS) MG 02/07/2019 03/09/2019 BID&0800,2000 LATANOPROST OPHTH SOLUTION LIQ 0.005 % (XALATAN) drops 02/07/2019 03/08/2019 QHS&2100 DIPHENHYDRAMINE CAP 25 MG (BENADRYL) MG 02/07/2019 03/09/2019 PRN QHS MELATONIN TAB 3 MG (MELATONIN) MG 02/07/2019 02/13/2019 PRN QHS NORMAL SALINE 500CC IV BAG INJ 0.9 % (NS 500CC IV BAG) ml 02/07/2019 02/07/2019 ONCE&2146 NORMAL SALINE 1000CC IV BAG INJ 0.9 % (NS 1000CC IV BAG) ml 02/07/2019 02/22/2019 CONTINUOUSEVERY 0 Hour NORMAL SALINE 500CC IV BAG INJ 0.9 % (NS 500CC IV BAG) ml 02/08/2019 02/08/2019 ONCE&0257 NORMAL SALINE 500CC IV BAG INJ 0.9 % (NS 500CC IV BAG) ml 02/08/2019 02/23/2019 CONTINUOUSEVERY 0 Hour LACTOBACILLUS BULGARIS TAB (LACTINEX BULGARIS) tab 02/08/2019 03/09/2019 QAM&0800 Potassium Chloride Powder for Oral Soln 20mEQ packet MEQ 02/08/2019 02/14/2019 QAM&0800 MAGNESIUM OXIDE TAB 400 MG (MAG-OX) MG 02/08/2019 03/09/2019 QAM&0800 AMLODIPINE TAB 5 MG (NORVASC) MG 02/08/2019 03/09/2019 QAM&0800 METOPROLOL-XL TAB 50 MG (TOPROL XL) MG 02/08/2019 03/09/2019 QAM&0800 ALLOPURINOL TAB 100 MG (ZYLOPRIM) MG 02/08/2019 03/09/2019 QAM&0800 Scopolamine TD patch 3 day (TransDerm- Scop patch) PATCH 02/08/2019 02/08/2019 Q72H&0800 POLYETHYLENE GLYCOL POWDER UD PWD (MIRALAX 17GM UNIT DOSE PAKS) Dose(s) 02/08/2019 03/10/2019 PRN QAM NORMAL SALINE 250CC IV BAG INJ 0.9 % (NS 250CC IV BAG) ml 02/08/2019 02/14/2019 BID&0800,2000 BISACODYL TAB 5 MG (DULCOLAX) MG 02/08/2019 02/14/2019 PRN Daily FUROSEMIDE TAB 20 MG (LASIX) MG 02/08/2019 03/09/2019 Daily&0900 POLYETHYLENE GLYCOL POWDER UD PWD (MIRALAX 17GM UNIT DOSE PAKS) gm 02/08/2019 02/14/2019 Daily&0900 BISACODYL SUPPOS 10 MG (DULCOLAX SUPPOS) MG 02/08/2019 02/14/2019 PRN Daily MILK OF CORDELIA LIQ ml 02/08/2019 03/09/2019 PRN Daily Ktjicyqs-htmu-ncj-folic acid) tab,CHEWable (Centrum) TAB 02/08/2019 03/09/2019 Daily&0900 Meropenem-0.9% sodium chloride IV piggyback 500mg MG 02/08/2019 02/18/2019 Q8H&0600,1400,2200 Normal SALINE 0.9 % (NS 100cc) (plain bag) ml 02/08/2019 02/11/2019 CONTINUOUSEVERY 0 Hour NORMAL SALINE 250CC IV BAG INJ 0.9 % (NS 250CC IV BAG) ml 02/08/2019 02/14/2019 Daily&2000 Diltiazem 120mg,extended release cap (CARDIZEM) 02/08/2019 02/08/2019 ONCE&2150 Diltiazem 120mg,extended release cap (CARDIZEM) 02/09/2019 03/10/2019 Daily&0900 METHYLPREDNISOLONE VIAL INJ 40 MG/CC (SOLU-MEDROL VIAL) MG 02/09/2019 02/13/2019 BID&0900,2100 OLMESARTAN TAB 20 MG (BENICAR) MG 02/10/2019 03/09/2019 Daily&0900 Diltiazem 120mg,extended release cap (CARDIZEM) 02/11/2019 03/12/2019 EVERY 24 Hour&0900 INSULIN ASPART PEN INJ 100 UNITS/CC (NOVOLOG FLEXPEN) 02/11/2019 03/13/2019 ACHS&0630,1130,1630,2100 ACETAMINOPHEN ORAL TABLET 325mg(Tylenol) MG 02/11/2019 03/13/2019 PRN EVERY 6 Hour ALPRAZOLAM TAB 0.25 MG (XANAX) MG 02/11/2019 02/21/2019 PRN Q6H IBUPROFEN TAB 400 MG (MOTRIN) MG 02/11/2019 02/18/2019 PRN Q6H TRAMADOL TAB 50 MG (ULTRAM) MG 02/11/2019 02/21/2019 Q6H&0600,1200,1800,2359 CLONIDINE TAB 0.1 MG (CATAPRES) MG 02/11/2019 02/18/2019 PRN Q6H CALCIUM CARBONATE TAB 500 MG (TUMS) MG 02/11/2019 02/18/2019 PRN Q6H DIPHENHYDRAMINE CAP 25 MG (BENADRYL) MG 02/11/2019 02/18/2019 PRN Q6H PROMETHAZINE VIAL INJ 25 MG/CC (PHENERGAN VIAL) MG 02/11/2019 02/21/2019 PRN Q6H Ondansetron 4mg oral DissolveTab (Zofran) MG 02/11/2019 03/13/2019 PRN Q4H BENZONATATE CAP 100 MG (TESSALON) MG 02/11/2019 02/18/2019 PRN TID ACETAMINOPHEN SUPPOS SUP 650 MG (TYLENOL) MG 02/11/2019 02/18/2019 PRN Q4H Meropenem-0.9% sodium chloride IV piggyback 500mg MG 02/11/2019 02/18/2019 Q8H&0600,1400,2200 ALUM/MAG/SIMETH 30CC LIQ (MYLANTA PLUS) cc 02/11/2019 02/21/2019 PRN Q4H GUAIFENESIN - DM LIQ (ROBITUSSIN DM) MLS 02/11/2019 02/18/2019 PRN Q4H HYDROCODONE/APAP 10/325 TAB 10 /325 (ALTON-TAB 10/325) TAB 02/11/2019 02/21/2019 PRN Q4H TRAMADOL TAB 50 MG (ULTRAM) MG 02/11/2019 02/21/2019 PRN Q6H Docusate sodium 100mg oral capsule (COLACE) 02/11/2019 03/13/2019 PRN BID SENNA CONC/DOCUSATE TAB (SENOKOT S) TAB 02/11/2019 03/13/2019 PRN BID LACTULOSE SYRUP LIQ 20 GM/30CC (CHRONULAC SYRUP) GM 02/11/2019 03/13/2019 BID&0800,2000 APIXABAN TAB 5 MG (ELIQUIS) MG 02/11/2019 03/13/2019 BID&0800,2000 LATANOPROST OPHTH SOLUTION LIQ 0.005 % (XALATAN) drops 02/11/2019 03/12/2019 QHS&2100 MELATONIN TAB 3 MG (MELATONIN) MG 02/11/2019 02/17/2019 PRN QHS LACTOBACILLUS BULGARIS TAB (LACTINEX BULGARIS) tab 02/12/2019 03/13/2019 Daily&0900 Potassium Chloride Powder for Oral Soln 20mEQ packet MEQ 02/12/2019 02/18/2019 Daily&0900 MAGNESIUM OXIDE TAB 400 MG (MAG-OX) MG 02/12/2019 03/13/2019 Daily&0900 METOPROLOL-XL TAB 50 MG (TOPROL XL) MG 02/12/2019 03/13/2019 Daily&0900 OLMESARTAN TAB 20 MG (BENICAR) MG 02/12/2019 03/13/2019 Daily&0900 AMLODIPINE TAB 10 MG (NORVASC) MG 02/12/2019 03/13/2019 Daily&0900 Diltiazem 120mg,extended release cap (CARDIZEM) 02/12/2019 03/12/2019 EVERY 24 Hour&0900 BISACODYL TAB 5 MG (DULCOLAX) MG 02/12/2019 02/18/2019 PRN Daily POLYETHYLENE GLYCOL POWDER UD PWD (MIRALAX 17GM UNIT DOSE PAKS) gm 02/12/2019 02/18/2019 Daily&0900 BISACODYL SUPPOS 10 MG (DULCOLAX SUPPOS) MG 02/12/2019 02/18/2019 PRN Daily MILK OF MAGNESIA LIQ ml 02/12/2019 03/13/2019 PRN Daily Fatgfxkp-ossf-cze-folic acid) tab,CHEWable (Centrum) TAB 02/12/2019 03/13/2019 Daily&0900 FUROSEMIDE VIAL INJ 40 MG (LASIX VIAL) MG 02/12/2019 02/12/2019 ONCE&0947 Problems Date Dx Coded Attending Type Code Diagnosis Diagnosed By 06/03/2018 W 781.2 ABNORMALITY OF GAIT 06/03/2018 W R26.81 UNSTEADINESS ON FEET 06/03/2018 W 719.46 PAIN IN JOINT INVOLVING LOWER LEG 06/03/2018 W 781.2 ABNORMALITY OF GAIT 06/03/2018 W M25.561 PAIN IN RIGHT KNEE 06/03/2018 W M25.562 PAIN IN LEFT KNEE 06/03/2018 W R26.81 UNSTEADINESS ON FEET 07/05/2018 A 719.46 PAIN IN JOINT INVOLVING LOWER LEG 07/05/2018 W 781.2 ABNORMALITY OF GAIT 07/05/2018 A M25.561 PAIN IN RIGHT KNEE 07/05/2018 W M25.562 PAIN IN LEFT KNEE 07/05/2018 W R26.81 UNSTEADINESS ON FEET 01/04/2019 BISMARK DONYDIA Ot C54.1 MALIGNANT NEOPLASM OF ENDOMETRIUM 01/04/2019 BISMARK DONICKYA K Ot E11.9 TYPE 2 DIABETES MELLITUS WITHOUT COMPLIC 01/04/2019 BISMARK DO NYDIA K Ot I10 ESSENTIAL (PRIMARY) HYPERTENSION 01/04/2019 BISMARK DO NDYIA K Ot M10.9 GOUT, UNSPECIFIED 01/04/2019 BISMARK DO NYDIA K Ot N39.0 URINARY TRACT INFECTION, SITE NOT SPECIF 01/04/2019 BISMARK DO NYDIA K Ot R42 DIZZINESS AND GIDDINESS 01/04/2019 BISMARK DO NYDIA K Ot R55 SYNCOPE AND COLLAPSE 01/04/2019 BISMARK DO NYDIA K Ot Z90.49 ACQUIRED ABSENCE OF OTHER SPECIFIED PART 01/04/2019 BISMARK DO NYDIA K Ot Z90.710 ACQUIRED ABSENCE OF BOTH CERVIX AND UTER 01/04/2019 BISMARK DONICKYA K Ot Z92.21 PERSONAL HISTORY OF ANTINEOPLASTIC CHEMO 01/04/2019 BISMARK DONICKYA K Ot Z98.890 OTHER SPECIFIED POSTPROCEDURAL STATES 01/06/2019 BISMARK DONYDIA Ot C54.1 MALIGNANT NEOPLASM OF ENDOMETRIUM 01/06/2019 BISMARK DONYDIA Ot E11.9 TYPE 2 DIABETES MELLITUS WITHOUT COMPLIC 01/06/2019 BISMARK DO NYDIA K Ot I10 ESSENTIAL (PRIMARY) HYPERTENSION 01/06/2019 BISMARK DO NYDIA K Ot M10.9 GOUT, UNSPECIFIED 01/06/2019 BISMARK DO NYDIA K Ot N39.0 URINARY TRACT INFECTION, SITE NOT SPECIF 01/06/2019 BISMARK DO NYDIA K Ot R42 DIZZINESS AND GIDDINESS 01/06/2019 BISMARK DO NYDIA K Ot R55 SYNCOPE AND COLLAPSE 01/06/2019 BISMARK DO NYDIA K Ot Z90.49 ACQUIRED ABSENCE OF OTHER SPECIFIED PART 01/06/2019 BISMARK DO NYDIA K Ot Z90.710 ACQUIRED ABSENCE OF BOTH CERVIX AND UTER 01/06/2019 NYDIA SOFIA DO Ot Z92.21 PERSONAL HISTORY OF ANTINEOPLASTIC CHEMO 01/06/2019 NYDIA SOFIA DO Ot Z98.890 OTHER SPECIFIED POSTPROCEDURAL STATES 01/12/2019 LEDESMA DO VELASQUEZ Ot C55 MALIGNANT NEOPLASM OF UTERUS, PART UNSPE 01/12/2019 BALTAZAR DO VELASQUEZ Ot 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 01/12/2019 BALTAZAR DO VELASQUEZ Ot 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 01/12/2019 BALTAZAR DO VELASQUEZ Ot E11.9 TYPE 2 DIABETES MELLITUS WITHOUT COMPLIC 01/12/2019 BALTAZAR DO VELASQUEZ Ot H35.30 UNSPECIFIED MACULAR DEGENERATION 01/12/2019 BALTAZAR DO VELASUQEZ Ot I10 ESSENTIAL (PRIMARY) HYPERTENSION 01/12/2019 BALTAZAR DO VELASQUEZ Ot I26.99 OTHER PULMONARY EMBOLISM WITHOUT ACUTE C 01/12/2019 BALTAZAR MOORE VEALSQUEZ Ot J44.9 CHRONIC OBSTRUCTIVE PULMONARY DISEASE, U 01/12/2019 BALTAZAR MOORE VELASQUEZ Ot M10.9 GOUT, UNSPECIFIED 01/12/2019 BALTAZAR MOORE VELASQUEZ Ot M19.91 PRIMARY OSTEOARTHRITIS, UNSPECIFIED SITE 01/12/2019 BALTAZAR MOORE VELASQUEZ Ot M54.9 DORSALGIA, UNSPECIFIED 01/12/2019 BALTAZAR MOORE VELASQUEZ Ot N30.00 ACUTE CYSTITIS WITHOUT HEMATURIA 01/12/2019 BALTAZAR MOORE VELASQUEZ Ot Z79.899 OTHER MANAGER RETIREMENT (CURRENT) DRUG THERAPY 01/12/2019 BALTAZAR MOORE VELASQUEZ Ot Z87.891 PERSONAL HISTORY OF NICOTINE DEPENDENCE 01/12/2019 BALTAZAR MOORE VELASQUEZ Ot Z92.21 PERSONAL HISTORY OF ANTINEOPLASTIC CHEMO 01/12/2019 BALTAZAR MOORE VELASQUEZ Ot C55 MALIGNANT NEOPLASM OF UTERUS, PART UNSPE 01/12/2019 BALTAZAR MOORE VELASQUEZ Ot 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 01/12/2019 BALTAZAR DO VELASQUEZ Ot 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 01/12/2019 BALTAZAR DO VELASQUEZ Ot E11.9 TYPE 2 DIABETES MELLITUS WITHOUT COMPLIC 01/12/2019 BALTAZAR DO VELASQUEZ Ot E87.6 HYPOKALEMIA 01/12/2019 BALTAZAR MOORE VELASQUEZ Ot H35.30 UNSPECIFIED MACULAR DEGENERATION 01/12/2019 BALTAZAR MOORE VELASQUEZ Ot I10 ESSENTIAL (PRIMARY) HYPERTENSION 01/12/2019 AURA LEDESMA DOI Ot I26.99 OTHER PULMONARY EMBOLISM WITHOUT ACUTE C 01/12/2019 BALTAZAR MOORE VELASQUEZ Ot J44.9 CHRONIC OBSTRUCTIVE PULMONARY DISEASE, U 01/12/2019 BALTAZAR MOORE VELASQUEZ Ot M10.9 GOUT, UNSPECIFIED 01/12/2019 BALTAZAR MOORE VELASQUEZ Ot M19.91 PRIMARY OSTEOARTHRITIS, UNSPECIFIED SITE 01/12/2019 BALTAZAR MOORE VELASQUEZ Ot M54.9 DORSALGIA, UNSPECIFIED 01/12/2019 BALTAZAR MOORE VELASQUEZ Ot N30.00 ACUTE CYSTITIS WITHOUT HEMATURIA 01/12/2019 BALTAZAR MOORE VELASQUEZ Ot Z79.01 MANAGER RETIREMENT (CURRENT) USE OF ANTICOAGULANT 01/12/2019 BALTAZAR MOORE VELASQUEZ Ot Z79.899 OTHER HALFWAY (CURRENT) DRUG THERAPY 01/12/2019 LEDESMA VELASQUEZ Ot Z87.891 PERSONAL HISTORY OF NICOTINE DEPENDENCE 01/12/2019 BALTAZAR MOORE VELASQUEZ Ot Z91.19 PATIENT'S NONCOMPLIANCE W [facility] MEDICAL TR 01/12/2019 BALTAZAR MOORE VELASQUEZ Ot Z92.21 PERSONAL HISTORY OF ANTINEOPLASTIC CHEMO 01/12/2019 LEDESMA DO VELASQUEZ Ot Z92.3 PERSONAL HISTORY OF IRRADIATION 01/12/2019 BALTAZAR MOORE VELASQUEZ Ot Z99.81 DEPENDENCE ON SUPPLEMENTAL OXYGEN 01/28/2019 Nba Ontiveros 038.9 UNSPECIFIED SEPTICEMIA 01/28/2019 Nba Ontiveros 599.0 URINARY TRACT INFECTION, SITE NOT SPECIFIED 01/28/2019 Nba Ontiveros 780.60 FEVER, UNSPECIFIED 01/28/2019 Nba Ontiveros 786.05 SHORTNESS OF BREATH 01/28/2019 Nba Ontiveros A41.9 SEPSIS, UNSPECIFIED ORGANISM 01/28/2019 Nba Ontiveros N39.0 URINARY TRACT INFECTION, SITE NOT SPECIFIED 01/28/2019 Nba Ontiveros R06.02 SHORTNESS OF BREATH 01/28/2019 Nba Ontiveros R50.9 FEVER, UNSPECIFIED Procedures There is no data. Results Test Result Range Urinalysis - 07/13/18 15:28 Icotest N/A Negative Urine Volume Urine Volume Sufficient (10mL) Urine-Appearance Clear Clear Urine-Bacteria 1+ Urine-Bilirubin Negative Negative Urine-Blood 2+ Negative Urine-Color Yellow Colorless-Lt. Yellow Urine-Epithelial Cells 0-5/HPF Urine-Glucose Negative Negative Urine-Ketones Negative Negative Urine-Leukocytes 2+ Negative Urine-Nitrite Negative Negative Urine-Other Culture to follow Urine-pH 5.5 5-8.5 Urine-Protein Negative Negative Urine-RBC 0-2/HPF Urine-Specific [place] 1.025 1.000-1.030 Urine-WBC 5-10/HPF Urobilinogen 0.2 E.U./dL 0.2-1.0 Urine Culture - 07/13/18 15:28 PRELIM CULTURE RESULTS <10,000 Gram Positive Mixed Gustavo [id number] Skin Contaminant FINAL CULTURE RESULTS 20,000-50,000 Gram Positive Mixed Gustavo MEDIA PLATED Setup at 16:24 on 07/13/2018 CULTURE SOURCE Urine clean [id number]\ Complete urinalysis with reflex to culture - 01/04/19 18:41 Urine color determination YELLOW NRG Urine clarity determination SLIGHTLY CLOUDY NRG Urine pH measurement by test strip 6 5-9 Specific gravity of urine by test strip 1.015 1.016-1.022 Urine protein assay by test strip, semi-quantitative 3+ NEGATIVE Urine glucose detection by automated test strip NEGATIVE NEGATIVE Erythrocytes detection in urine sediment by light microscopy 5+ NEGATIVE Urine ketones detection by automated test strip NEGATIVE NEGATIVE Urine nitrite detection by test strip NEGATIVE NEGATIVE Urine total bilirubin detection by test strip NEGATIVE NEGATIVE Urine urobilinogen measurement by automated test strip (mass/volume) NORMAL NORMAL Urine leukocyte esterase detection by dipstick 3+ NEGATIVE Automated urine sediment erythrocyte count by microscopy (number/high power field) TNTC NRG Automated urine sediment leukocyte count by microscopy (number/high power field) > [HPF] NRG Bacteria detection in urine sediment by light microscopy MODERATE NRG Squamous epithelial cells detection in urine sediment by light microscopy 5-10 NRG Crystals detection in urine sediment by light microscopy NONE NRG Casts detection in urine sediment by light microscopy NONE NRG Mucus detection in urine sediment by light microscopy NEGATIVE NRG Complete urinalysis with reflex to culture YES NRG Bacterial urine culture - 01/04/19 18:41 Bacterial urine culture 3 OR MORE NRG COLONY COUNT 20,000 CFU/ML NRG FTX;REPORTABLE (GRAM POSITIVE) SUGGESTING PROBABLE NRG FREE TEXT ENTRY 2 COLLECTION CONTAMINATION WITH SKIN NRG FREE TEXT ENTRY 3 GUSTAVO. NO SUSCEPTIBILITY PERFORMED NR Complete blood count (CBC) with automated white blood cell (WBC) differential - 01/04/19 19:10 Blood leukocytes automated count (number/volume) 7.7 10*3/uL 4.3-11.0 Blood erythrocytes automated count (number/volume) 3.65 10*6/uL 4.35-5.85 Venous blood hemoglobin measurement (mass/volume) 12.2 g/dL 11.5-16.0 Blood hematocrit (volume fraction) 36 % 35-52 Automated erythrocyte mean corpuscular volume 98 [foz_us] 80-99 Automated erythrocyte mean corpuscular hemoglobin (mass per erythrocyte) 33 pg 25-34 Automated erythrocyte mean corpuscular hemoglobin concentration measurement (mass/volume) 34 g/dL 32-36 Automated erythrocyte distribution width ratio 12.5 % 10.0- 14.5 Automated blood platelet count (count/volume) 234 10*3/uL 130-400 Automated blood platelet mean volume measurement 8.7 [foz_us] 7.4-10.4 Automated blood neutrophils/100 leukocytes 64 % 42-75 Automated blood lymphocytes/100 leukocytes 22 % 12-44 Blood monocytes/100 leukocytes 9 % 0-12 Automated blood eosinophils/100 leukocytes 4 % 0-10 Automated blood basophils/100 leukocytes 1 % 0-10 Blood neutrophils automated count (number/volume) 5.0 10*3 1.8-7.8 Blood lymphocytes automated count (number/volume) 1.7 10*3 1.0-4.0 Blood monocytes automated count (number/volume) 0.7 10*3 0.0- 1.0 Automated eosinophil count 0.3 10*3/uL 0.0-0.3 Automated blood basophil count (count/volume) 0.0 10*3/uL 0.0-0.1 PT panel in platelet poor plasma by coagulation assay - 01/04/19 19:10 Prothrombin time (PT) in platelet poor plasma by coagulation assay 13.6 s 12.2-14.7 INR in platelet poor plasma or blood by coagulation assay 1.0 0.8-1.4 Activated partial thromboplastin time (aPTT) in platelet poor plasma bycoagulation assay - 01/04/19 19:10 Activated partial thromboplastin time (aPTT) in platelet poor plasma bycoagulation assay 31 s 24-35 Comprehensive metabolic panel - 01/04/19 19:10 Serum or plasma sodium measurement (moles/volume) 139 mmol/L 135-145 Serum or plasma potassium measurement (moles/volume) 3.7 mmol/L 3.6-5.0 Serum or plasma chloride measurement (moles/volume) 103 mmol/L 98-107 Carbon dioxide 26 mmol/L 21-32 Serum or plasma anion gap determination (moles/volume) 10 mmol/L 5-14 Serum or plasma urea nitrogen measurement (mass/volume) 19 mg/dL 7-18 Serum or plasma creatinine measurement (mass/volume) 0.90 mg/dL 0.60-1.30 Serum or plasma urea nitrogen/creatinine mass ratio 21 NRG Serum or plasma creatinine measurement with calculation of estimated glomerular filtration rate 60 NRG Serum or plasma glucose measurement (mass/volume) 102 mg/dL 70-105 Serum or plasma calcium measurement (mass/volume) 9.9 mg/dL 8.5-10.1 Serum or plasma total bilirubin measurement (mass/volume) 0.4 mg/dL 0.1-1.0 Serum or plasma alkaline phosphatase measurement (enzymatic activity/volume) 75 U/L 40-136 Serum or plasma aspartate aminotransferase measurement (enzymatic activity/volume) 23 U/L 5-34 Serum or plasma alanine aminotransferase measurement (enzymatic activity/volume) 21 U/L 0-55 Serum or plasma protein measurement (mass/volume) 6.6 g/dL 6.4-8.2 Serum or plasma albumin measurement (mass/volume) 4.0 g/dL 3.2-4.5 CALCIUM CORRECTED 9.9 mg/dL 8.5-10.1 Magnesium - 01/04/19 19:10 Magnesium 2.1 mg/dL 1.8-2.4 Serum or plasma troponin i.cardiac measurement (mass/volume) - 01/04/19 19:10 Serum or plasma troponin i.cardiac measurement (mass/volume) < ng/mL <0.028 Serum or plasma thyrotropin measurement by detection limit <=0.05 miu/l (units/volume) - 01/04/19 19:10 Serum or plasma thyrotropin measurement by detection limit <=0.05 miu/l (units/volume) 1.56 u[iU]/mL 0.35-4.94 Influenza virus A and B antigen detection - 01/08/19 14:22 FLU RESULT NEGATIVE FOR INFLUENZA A AND B ANTIGENS BY [facility] Complete blood count (CBC) with automated white blood cell (WBC) differential - 01/08/19 14:31 Blood leukocytes automated count (number/volume) 8.2 10*3/uL 4.3-11.0 Blood erythrocytes automated count (number/volume) 3.73 10*6/uL 4.35-5.85 Venous blood hemoglobin measurement (mass/volume) 12.4 g/dL 11.5-16.0 Blood hematocrit (volume fraction) 36 % 35-52 Automated erythrocyte mean corpuscular volume 97 [foz_us] 80-99 Automated erythrocyte mean corpuscular hemoglobin (mass per erythrocyte) 33 pg 25-34 Automated erythrocyte mean corpuscular hemoglobin concentration measurement (mass/volume) 34 g/dL 32-36 Automated erythrocyte distribution width ratio 12.7 % 10.0- 14.5 Automated blood platelet count (count/volume) 221 10*3/uL 130-400 Automated blood platelet mean volume measurement 9.4 [foz_us] 7.4-10.4 Automated blood neutrophils/100 leukocytes 79 % 42-75 Automated blood lymphocytes/100 leukocytes 8 % 12-44 Blood monocytes/100 leukocytes 8 % 0-12 Automated blood eosinophils/100 leukocytes 5 % 0-10 Automated blood basophils/100 leukocytes 0 % 0-10 Blood neutrophils automated count (number/volume) 6.5 10*3 1.8-7.8 Blood lymphocytes automated count (number/volume) 0.6 10*3 1.0-4.0 Blood monocytes automated count (number/volume) 0.6 10*3 0.0- 1.0 Automated eosinophil count 0.4 10*3/uL 0.0-0.3 Automated blood basophil count (count/volume) 0.0 10*3/uL 0.0-0.1 Serum or plasma C reactive protein measurement (mass/volume) - 01/08/19 14:31 Serum or plasma C reactive protein measurement (mass/volume) 6.27 mg/dL 0.00-0.50 Blood lactic acid measurement (moles/volume) - 01/08/19 14:31 Blood lactic acid measurement (moles/volume) 2.69 mmol/L 0.50- 2.00 Comprehensive metabolic panel - 01/08/19 14:31 Serum or plasma sodium measurement (moles/volume) 137 mmol/L 135-145 Serum or plasma potassium measurement (moles/volume) 3.7 mmol/L 3.6-5.0 Serum or plasma chloride measurement (moles/volume) 103 mmol/L 98-107 Carbon dioxide 22 mmol/L 21-32 Serum or plasma anion gap determination (moles/volume) 12 mmol/L 5-14 Serum or plasma urea nitrogen measurement (mass/volume) 15 mg/dL 7-18 Serum or plasma creatinine measurement (mass/volume) 0.84 mg/dL 0.60-1.30 Serum or plasma urea nitrogen/creatinine mass ratio 18 NRG Serum or plasma creatinine measurement with calculation of estimated glomerular filtration rate > NRG Serum or plasma glucose measurement (mass/volume) 182 mg/dL 70-105 Serum or plasma calcium measurement (mass/volume) 9.2 mg/dL 8.5-10.1 Serum or plasma total bilirubin measurement (mass/volume) 0.5 mg/dL 0.1-1.0 Serum or plasma alkaline phosphatase measurement (enzymatic activity/volume) 83 U/L 40-136 Serum or plasma aspartate aminotransferase measurement (enzymatic activity/volume) 42 U/L 5-34 Serum or plasma alanine aminotransferase measurement (enzymatic activity/volume) 31 U/L 0-55 Serum or plasma protein measurement (mass/volume) 6.3 g/dL 6.4-8.2 Serum or plasma albumin measurement (mass/volume) 3.7 g/dL 3.2-4.5 CALCIUM CORRECTED 9.4 mg/dL 8.5-10.1 Serum or plasma troponin i.cardiac measurement (mass/volume) - 01/08/19 14:31 Serum or plasma troponin i.cardiac measurement (mass/volume) < ng/mL <0.028 Blood manual differential performed detection - 01/08/19 14:31 Blood monocytes/100 leukocytes 3 % NRG Manual blood segmented neutrophils/100 leukocytes 88 % NRG Blood band neutrophils/100 leukocytes 0 % NRG Manual blood lymphocytes/100 leukocytes 8 % NRG Manual eosinophils/100 leukocytes in nose 1 % NRG Blood erythrocyte morphology finding identification NORMAL NRG Serum or plasma lithium measurement (moles/volume) - 01/08/19 14:31 BNP level 151.9 pg/mL <100.0 Bacterial blood culture - 01/08/19 14:31 Bacterial blood culture NG NRG Bacterial blood culture - 01/08/19 14:59 Bacterial blood culture NG NRG Complete urinalysis with reflex to culture - 01/08/19 15:36 Urine color determination YELLOW NRG Urine clarity determination VERY CLOUDY NRG Urine pH measurement by test strip 6 5-9 Specific gravity of urine by test strip 1.015 1.016-1.022 Urine protein assay by test strip, semi-quantitative 3+ NEGATIVE Urine glucose detection by automated test strip NEGATIVE NEGATIVE Erythrocytes detection in urine sediment by light microscopy 5+ NEGATIVE Urine ketones detection by automated test strip NEGATIVE NEGATIVE Urine nitrite detection by test strip NEGATIVE NEGATIVE Urine total bilirubin detection by test strip NEGATIVE NEGATIVE Urine urobilinogen measurement by automated test strip (mass/volume) NORMAL NORMAL Urine leukocyte esterase detection by dipstick 3+ NEGATIVE Automated urine sediment erythrocyte count by microscopy (number/high power field) [HPF] NRG Automated urine sediment leukocyte count by microscopy (number/high power field) TNTC NRG Bacteria detection in urine sediment by light microscopy NEGATIVE NRG Squamous epithelial cells detection in urine sediment by light microscopy 0-2 NRG Crystals detection in urine sediment by light microscopy NONE NRG Casts detection in urine sediment by light microscopy NONE NRG Mucus detection in urine sediment by light microscopy NEGATIVE NRG Complete urinalysis with reflex to culture YES NRG Bacterial urine culture - 01/08/19 15:36 Bacterial urine culture 3 OR MORE NRG COLONY COUNT 50,000 CFU/ML NRG FTX;REPORTABLE GRAM POSITIVE ISOLATES; SUGGESTING NRG FREE TEXT ENTRY 2 PROBABLE COLLECTION CONTAMINATION WITH NRG FREE TEXT ENTRY 3 SKIN GUSTAVO. NO SUSCEPTIBILITY PERFORMED. NRG Serum or plasma lactate measurement (moles/volume) - 01/08/19 16:47 Serum or plasma lactate measurement (moles/volume) 1.58 mmol/L 0.50-2.00 Methicillin resistant Staphylococcus aureus (MRSA) screening culture - 01/08/19 18:30 Methicillin resistant Staphylococcus aureus (MRSA) screening culture NEG NRG Capillary blood glucose measurement by glucometer (mass/volume) - 01/08/19 20:48 Capillary blood glucose measurement by glucometer (mass/volume) 189 mg/dL 70-110 Whole blood basic metabolic panel - 01/09/19 03:20 Serum or plasma sodium measurement (moles/volume) 140 mmol/L 135-145 Serum or plasma potassium measurement (moles/volume) 3.6 mmol/L 3.6-5.0 Serum or plasma chloride measurement (moles/volume) 107 mmol/L 98-107 Carbon dioxide 23 mmol/L 21-32 Serum or plasma anion gap determination (moles/volume) 10 mmol/L 5-14 Serum or plasma urea nitrogen measurement (mass/volume) 17 mg/dL 7-18 Serum or plasma creatinine measurement (mass/volume) 0.88 mg/dL 0.60-1.30 Serum or plasma urea nitrogen/creatinine mass ratio 19 NRG Serum or plasma creatinine measurement with calculation of estimated glomerular filtration rate > NRG Serum or plasma glucose measurement (mass/volume) 142 mg/dL 70-105 Serum or plasma calcium measurement (mass/volume) 8.8 mg/dL 8.5-10.1 Serum or plasma phosphate measurement (mass/volume) - 01/09/19 03:20 Serum or plasma phosphate measurement (mass/volume) 3.4 mg/dL 2.3-4.7 Magnesium - 01/09/19 03:20 Magnesium 1.8 mg/dL 1.8-2.4 Complete blood count (CBC) with automated white blood cell (WBC) differential - 01/09/19 03:20 Blood leukocytes automated count (number/volume) 7.9 10*3/uL 4.3-11.0 Blood erythrocytes automated count (number/volume) 3.36 10*6/uL 4.35-5.85 Venous blood hemoglobin measurement (mass/volume) 11.2 g/dL 11.5-16.0 Blood hematocrit (volume fraction) 33 % 35-52 Automated erythrocyte mean corpuscular volume 99 [foz_us] 80-99 Automated erythrocyte mean corpuscular hemoglobin (mass per erythrocyte) 33 pg 25-34 Automated erythrocyte mean corpuscular hemoglobin concentration measurement (mass/volume) 34 g/dL 32-36 Automated erythrocyte distribution width ratio 12.8 % 10.0- 14.5 Automated blood platelet count (count/volume) 195 10*3/uL 130-400 Automated blood platelet mean volume measurement 9.5 [foz_us] 7.4-10.4 Automated blood neutrophils/100 leukocytes 80 % 42-75 Automated blood lymphocytes/100 leukocytes 8 % 12-44 Blood monocytes/100 leukocytes 7 % 0-12 Automated blood eosinophils/100 leukocytes 4 % 0-10 Automated blood basophils/100 leukocytes 0 % 0-10 Blood neutrophils automated count (number/volume) 6.3 10*3 1.8-7.8 Blood lymphocytes automated count (number/volume) 0.7 10*3 1.0-4.0 Blood monocytes automated count (number/volume) 0.6 10*3 0.0- 1.0 Automated eosinophil count 0.3 10*3/uL 0.0-0.3 Automated blood basophil count (count/volume) 0.0 10*3/uL 0.0-0.1 Complete blood count (CBC) with automated white blood cell (WBC) differential - 01/10/19 04:30 Blood leukocytes automated count (number/volume) 6.9 10*3/uL 4.3-11.0 Blood erythrocytes automated count (number/volume) 3.50 10*6/uL 4.35-5.85 Venous blood hemoglobin measurement (mass/volume) 11.6 g/dL 11.5-16.0 Blood hematocrit (volume fraction) 35 % 35-52 Automated erythrocyte mean corpuscular volume 99 [foz_us] 80-99 Automated erythrocyte mean corpuscular hemoglobin (mass per erythrocyte) 33 pg 25-34 Automated erythrocyte mean corpuscular hemoglobin concentration measurement (mass/volume) 33 g/dL 32-36 Automated erythrocyte distribution width ratio 12.9 % 10.0- 14.5 Automated blood platelet count (count/volume) 204 10*3/uL 130-400 Automated blood platelet mean volume measurement 9.5 [foz_us] 7.4-10.4 Automated blood neutrophils/100 leukocytes 72 % 42-75 Automated blood lymphocytes/100 leukocytes 13 % 12-44 Blood monocytes/100 leukocytes 9 % 0-12 Automated blood eosinophils/100 leukocytes 6 % 0-10 Automated blood basophils/100 leukocytes 0 % 0-10 Blood neutrophils automated count (number/volume) 5.0 10*3 1.8-7.8 Blood lymphocytes automated count (number/volume) 0.9 10*3 1.0-4.0 Blood monocytes automated count (number/volume) 0.7 10*3 0.0- 1.0 Automated eosinophil count 0.4 10*3/uL 0.0-0.3 Automated blood basophil count (count/volume) 0.0 10*3/uL 0.0-0.1 Whole blood basic metabolic panel - 01/10/19 04:30 Serum or plasma sodium measurement (moles/volume) 141 mmol/L 135-145 Serum or plasma potassium measurement (moles/volume) 3.5 mmol/L 3.6-5.0 Serum or plasma chloride measurement (moles/volume) 112 mmol/L 98-107 Carbon dioxide 20 mmol/L 21-32 Serum or plasma anion gap determination (moles/volume) 9 mmol/L 5-14 Serum or plasma urea nitrogen measurement (mass/volume) 12 mg/dL 7-18 Serum or plasma creatinine measurement (mass/volume) 0.78 mg/dL 0.60-1.30 Serum or plasma urea nitrogen/creatinine mass ratio 15 NRG Serum or plasma creatinine measurement with calculation of estimated glomerular filtration rate > NRG Serum or plasma glucose measurement (mass/volume) 162 mg/dL 70-105 Serum or plasma calcium measurement (mass/volume) 8.5 mg/dL 8.5-10.1 Complete blood count (CBC) with automated white blood cell (WBC) differential - 01/11/19 04:30 Blood leukocytes automated count (number/volume) 6.7 10*3/uL 4.3-11.0 Blood erythrocytes automated count (number/volume) 3.19 10*6/uL 4.35-5.85 Venous blood hemoglobin measurement (mass/volume) 10.5 g/dL 11.5-16.0 Blood hematocrit (volume fraction) 32 % 35-52 Automated erythrocyte mean corpuscular volume 100 [foz_us] 80-99 Automated erythrocyte mean corpuscular hemoglobin (mass per erythrocyte) 33 pg 25-34 Automated erythrocyte mean corpuscular hemoglobin concentration measurement (mass/volume) 33 g/dL 32-36 Automated erythrocyte distribution width ratio 12.8 % 10.0- 14.5 Automated blood platelet count (count/volume) 204 10*3/uL 130-400 Automated blood platelet mean volume measurement 9.4 [foz_us] 7.4-10.4 Automated blood neutrophils/100 leukocytes 67 % 42-75 Automated blood lymphocytes/100 leukocytes 17 % 12-44 Blood monocytes/100 leukocytes 10 % 0-12 Automated blood eosinophils/100 leukocytes 7 % 0-10 Automated blood basophils/100 leukocytes 0 % 0-10 Blood neutrophils automated count (number/volume) 4.5 10*3 1.8-7.8 Blood lymphocytes automated count (number/volume) 1.1 10*3 1.0-4.0 Blood monocytes automated count (number/volume) 0.6 10*3 0.0- 1.0 Automated eosinophil count 0.4 10*3/uL 0.0-0.3 Automated blood basophil count (count/volume) 0.0 10*3/uL 0.0-0.1 Whole blood basic metabolic panel - 01/11/19 04:30 Serum or plasma sodium measurement (moles/volume) 140 mmol/L 135-145 Serum or plasma potassium measurement (moles/volume) 3.5 mmol/L 3.6-5.0 Serum or plasma chloride measurement (moles/volume) 112 mmol/L 98-107 Carbon dioxide 21 mmol/L 21-32 Serum or plasma anion gap determination (moles/volume) 7 mmol/L 5-14 Serum or plasma urea nitrogen measurement (mass/volume) 12 mg/dL 7-18 Serum or plasma creatinine measurement (mass/volume) 0.68 mg/dL 0.60-1.30 Serum or plasma urea nitrogen/creatinine mass ratio 18 NRG Serum or plasma creatinine measurement with calculation of estimated glomerular filtration rate > NRG Serum or plasma glucose measurement (mass/volume) 147 mg/dL 70-105 Serum or plasma calcium measurement (mass/volume) 8.5 mg/dL 8.5-10.1 Complete blood count (CBC) with automated white blood cell (WBC) differential - 01/12/19 04:45 Blood leukocytes automated count (number/volume) 6.6 10*3/uL 4.3-11.0 Blood erythrocytes automated count (number/volume) 3.14 10*6/uL 4.35-5.85 Venous blood hemoglobin measurement (mass/volume) 10.3 g/dL 11.5-16.0 Blood hematocrit (volume fraction) 31 % 35-52 Automated erythrocyte mean corpuscular volume 98 [foz_us] 80-99 Automated erythrocyte mean corpuscular hemoglobin (mass per erythrocyte) 33 pg 25-34 Automated erythrocyte mean corpuscular hemoglobin concentration measurement (mass/volume) 33 g/dL 32-36 Automated erythrocyte distribution width ratio 12.8 % 10.0- 14.5 Automated blood platelet count (count/volume) 210 10*3/uL 130-400 Automated blood platelet mean volume measurement 9.2 [foz_us] 7.4-10.4 Automated blood neutrophils/100 leukocytes 65 % 42-75 Automated blood lymphocytes/100 leukocytes 21 % 12-44 Blood monocytes/100 leukocytes 7 % 0-12 Automated blood eosinophils/100 leukocytes 7 % 0-10 Automated blood basophils/100 leukocytes 0 % 0-10 Blood neutrophils automated count (number/volume) 4.3 10*3 1.8-7.8 Blood lymphocytes automated count (number/volume) 1.4 10*3 1.0-4.0 Blood monocytes automated count (number/volume) 0.5 10*3 0.0- 1.0 Automated eosinophil count 0.4 10*3/uL 0.0-0.3 Automated blood basophil count (count/volume) 0.0 10*3/uL 0.0-0.1 Whole blood basic metabolic panel - 01/12/19 04:45 Serum or plasma sodium measurement (moles/volume) 140 mmol/L 135-145 Serum or plasma potassium measurement (moles/volume) 3.4 mmol/L 3.6-5.0 Serum or plasma chloride measurement (moles/volume) 111 mmol/L 98-107 Carbon dioxide 20 mmol/L 21-32 Serum or plasma anion gap determination (moles/volume) 9 mmol/L 5-14 Serum or plasma urea nitrogen measurement (mass/volume) 8 mg/dL 7-18 Serum or plasma creatinine measurement (mass/volume) 0.66 mg/dL 0.60-1.30 Serum or plasma urea nitrogen/creatinine mass ratio 12 NRG Serum or plasma creatinine measurement with calculation of estimated glomerular filtration rate > NRG Serum or plasma glucose measurement (mass/volume) 142 mg/dL 70-105 Serum or plasma calcium measurement (mass/volume) 8.4 mg/dL 8.5-10.1 Blood Culture - 02/07/19 17:00 PRELIM CULTURE RESULTS Blood Culture Negative, No Growth Day 1 FINAL CULTURE RESULTS Blood Culture Negative, No Growth Day 5 MEDIA PLATED Setup at 17:51 on 02/07/[id number] Culture Media Position B27 CULTURE SOURCE Right Hand Blood Culture - 02/07/19 17:00 PRELIM CULTURE RESULTS Blood Culture Negative, No Growth Day 1 MEDIA PLATED Setup at 17:51 on 02/07/[id number] [employer] Position B27 CULTURE SOURCE Right Hand CBC with Auto Diff - 02/07/19 17:07 Baso% 0.00 % 0.00-2.50 Eos 1.0 K/uL 0.0-0.7 Eos% 4.7 % 0.0-7.0 Hct 36.2 % 36.0-46.0 Hgb 12.0 Result Verified by Repeat Analysis g/dL 13.0-15.0 Lym 0.34 K/uL 0.60-3.40 Lym% 1.6 % 10.0-50.0 MCH 32.4 pg 27.0-31.0 MCHC 33.1 g/dL 32.0-36.0 MCV 97.8 fL 80.0-97.0 [place]% 2.0 % 0.0-12.0 MPV 9.6 fL 7.4-10.0 Marie% 91.7 % 37.0-80.0 Plt 325 K/uL 150-400 RBC 3.70 M/uL 3.60-5.00 RDW 12.6 % 11.6-14.8 WBC 20.72 Result Verified by Repeat Analysis K/uL 5.00-10.00 Marie 18.98 K/uL 2.00-6.90 [place] 0.4 K/uL 0.0-0.9 Baso 0.0 K/uL 0.0-0.2 Urine Culture - 02/07/19 17:10 PRELIM CULTURE RESULTS No Growth 24 hours FINAL CULTURE RESULTS No Growth 48 hours MEDIA PLATED Setup at 17:50 on 02/07/2019 CULTURE SOURCE cath urine Blood Culture - 02/07/19 17:30 PRELIM CULTURE RESULTS Blood Culture Negative, No Growth Day 1 FINAL CULTURE RESULTS Blood Culture Negative, No Growth Day 5 MEDIA PLATED Setup at 17:52 on 02/07/[id number] [employer] Position C50 CULTURE SOURCE Right AC Blood Culture - 02/07/19 17:30 PRELIM CULTURE RESULTS Blood Culture Negative, No Growth Day 1 MEDIA PLATED Setup at 17:52 on 02/07/[id number] Culture Media Position C50 CULTURE SOURCE Right AC Lactic Acid - 02/07/19 21:00 Lactic Acid 22.0 mg/dL 4.5-19.8 Comprehensive Metabolic Panel - 02/08/19 05:20 Albumin 2.8 g/dL 3.6-5.1 ALP 102 U/L 35-130 ALT 27 U/L 6-45 Anion Gap 14 6-14 AST 44 U/L 2-40 BUN 25 mg/dL 5-25 Calcium 8.1 mg/dL 8.3-10.4 Chloride 106 mmol/L 95-114 CO2 22 mEq/L 22-33 Creat 1.35 mg/dL 0.50-1.50 eGFR 38 mL/min/1.73m2 >59 Globulin 1.7 g/dL 2.3-3.5 Glucose 71 mg/dL 70-110 Osmo 288 280-295 Potassium 4.1 mmol/L 3.5-5.3 Sodium 138 mmol/L 134-148 TBil 0.6 mg/dL 0.2-1.2 TP 4.5 g/dL 6.0-8.3 Comprehensive Metabolic Panel - 02/09/19 05:05 Albumin 3.0 g/dL 3.6-5.1 ALP 117 U/L 35-130 ALT 50 U/L 6-45 Anion Gap 15 6-14 AST 86 U/L 2-40 BUN 19 mg/dL 5-25 Calcium 8.8 mg/dL 8.3-10.4 Chloride 111 mmol/L 95-114 CO2 17 mEq/L 22-33 Creat 0.82 mg/dL 0.50-1.50 eGFR 67 mL/min/1.73m2 >59 Globulin 2.3 g/dL 2.3-3.5 Glucose 123 mg/dL 70-110 Osmo 290 280-295 Potassium 4.0 mmol/L 3.5-5.3 Sodium 139 mmol/L 134-148 TBil 0.4 mg/dL 0.2-1.2 TP 5.3 g/dL 6.0-8.3 Lactic Acid - 02/09/19 05:05 Lactic Acid 13.5 mg/dL 4.5-19.8 Vancomycin Trough - 02/09/19 18:24 Vanco Trough 5.9 ug/mL 10.0-20.0 Comprehensive Metabolic Panel - 02/10/19 05:44 Albumin 3.0 g/dL 3.6-5.1 ALP 119 U/L 35-130 ALT 53 U/L 6-45 Anion Gap 11 6-14 AST 66 U/L 2-40 BUN 14 mg/dL 5-25 Calcium 8.9 mg/dL 8.3-10.4 Chloride 112 mmol/L 95-114 CO2 22 mEq/L 22-33 Creat 0.77 mg/dL 0.50-1.50 eGFR 72 mL/min/1.73m2 >59 Globulin 1.8 g/dL 2.3-3.5 Glucose 142 mg/dL 70-110 Osmo 294 280-295 Potassium 3.8 mmol/L 3.5-5.3 Sodium 141 mmol/L 134-148 TBil 0.3 mg/dL 0.2-1.2 TP 4.8 g/dL 6.0-8.3 Comprehensive Metabolic Panel - 02/11/19 05:25 Albumin 2.9 g/dL 3.6-5.1 ALP 124 U/L 35-130 ALT 56 U/L 6-45 Anion Gap 11 6-14 AST 64 U/L 2-40 BUN 12 mg/dL 5-25 Calcium 9.1 mg/dL 8.3-10.4 Chloride 111 mmol/L 95-114 CO2 25 mEq/L 22-33 Creat 0.73 mg/dL 0.50-1.50 eGFR 77 mL/min/1.73m2 >59 Globulin 1.9 g/dL 2.3-3.5 Glucose 124 mg/dL 70-110 Osmo 296 280-295 Potassium 4.1 mmol/L 3.5-5.3 Sodium 143 mmol/L 134-148 TBil 0.4 mg/dL 0.2-1.2 TP 4.8 g/dL 6.0-8.3 Comprehensive Metabolic Panel - 02/12/19 05:05 Albumin 3.0 g/dL 3.6-5.1 ALP 123 U/L 35-130 ALT 58 U/L 6-45 Anion Gap 12 6-14 AST 65 U/L 2-40 BUN 10 mg/dL 5-25 Calcium 9.2 mg/dL 8.3-10.4 Chloride 108 mmol/L 95-114 CO2 24 mEq/L 22-33 Creat 0.72 mg/dL 0.50-1.50 eGFR 78 mL/min/1.73m2 >59 Globulin 1.9 g/dL 2.3-3.5 Glucose 138 mg/dL 70-110 Osmo 290 280-295 Potassium 3.9 mmol/L 3.5-5.3 Sodium 140 mmol/L 134-148 TBil 0.4 mg/dL 0.2-1.2 TP 4.9 g/dL 6.0-8.3 Comprehensive Metabolic Panel - 02/13/19 05:15 Albumin 3.1 g/dL 3.6-5.1 ALP 119 U/L 35-130 ALT 59 U/L 6-45 Anion Gap 12 6-14 AST 64 U/L 2-40 BUN 12 mg/dL 5-25 Calcium 9.2 mg/dL 8.3-10.4 Chloride 105 mmol/L 95-114 CO2 27 mEq/L 22-33 Creat 0.77 mg/dL 0.50-1.50 eGFR 72 mL/min/1.73m2 >59 Globulin 1.9 g/dL 2.3-3.5 Glucose 143 mg/dL 70-110 Osmo 291 280-295 Potassium 3.8 mmol/L 3.5-5.3 Sodium 140 mmol/L 134-148 TBil 0.4 mg/dL 0.2-1.2 TP 5.0 g/dL 6.0-8.3 Comprehensive Metabolic Panel - 02/14/19 05:31 Albumin 3.1 g/dL 3.6-5.1 ALP 120 U/L 35-130 ALT 63 U/L 6-45 Anion Gap 13 6-14 AST 69 U/L 2-40 BUN 13 mg/dL 5-25 Calcium 9.2 mg/dL 8.3-10.4 Chloride 105 mmol/L 95-114 CO2 25 mEq/L 22-33 Creat 0.79 mg/dL 0.50-1.50 eGFR 70 mL/min/1.73m2 >59 Globulin 1.9 g/dL 2.3-3.5 Glucose 156 mg/dL 70-110 Osmo 290 280-295 Potassium 4.1 mmol/L 3.5-5.3 Sodium 139 mmol/L 134-148 TBil 0.4 mg/dL 0.2-1.2 TP 5.0 g/dL 6.0-8.3 Thyroid Stimulating Hormone - 02/21/19 16:34 TSH 1.89 mIU/mL 0.32-5.00 Encounters ACCT No. Visit Date/Time Discharge Status Pt. Type Provider Facility Loc./Unit Complaint [id number] 01/28/2019 11:30:00 01/28/2019 23:59:[address] [facility]NEY [facility] [id number] 01/04/2019 07:17:42 01/04/2019 23:59:59 DIS Outpatient KRISTYNFAUSTO [facility] [id number] 07/19/2018 15:52:43 07/19/2018 23:59:59 DIS Outpatient ABDI CHAKRABORTY [facility] [id number] 11/04/2017 14:51:40 11/04/2017 23:59:59 DIS Outpatient ABDI CHAKRABORTY [facility] [id number] 03/31/2017 10:45:00 03/31/2017 23:59:59 DIS Outpatient ABDI CHAKRABORTY [facility] [id number] 03/09/2017 13:11:00 03/09/2017 23:59:59 CLS Preadmit [facility] Surgery D&C [id number] 03/03/2017 11:58:36 03/03/2017 23:59:59 CLS Preadmit ABDI CHAKRABORTY [facility] RAD CHRONIC VAGINAL DISCHARGE, POST MENOPAUSAL [id number] 01/31/2018 02:00:23 Document Registration [id number] 03/12/2017 02:01:15 Document Registration [id number] 03/03/2017 11:54:39 Document Registration [id number] 03/03/2017 02:00:44 Document Registration [id number] 02/03/2017 14:48:22 Document Registration [id number] 01/31/2017 02:01:30 Document Registration [id number] 09/09/2016 14:16:32 Document Registration [id number] 09/09/2016 13:58:54 Document Registration [id number] 09/09/2016 02:00:22 Document Registration [id number] 02/11/2019 09:00:00 Document Registration [id number] 02/07/2019 07:25:00 Document Registration [id number] 02/07/2019 15:00:00 Document Registration [id number] 01/08/2019 16:19:00 01/12/2019 14:50:00 DIS Inpatient VELASQUEZ LEDESMA DO [facility] 4TH UTI,PE,HX UTERINE CA [id number] 01/04/2019 17:35:00 01/04/2019 21:08:00 DIS Emergency BISMARK NYDIA Nat [facility] ER DIZZY / BLACKING OUT [id number] 02/21/2019 16:24:00 02/21/2019 23:59:00 DIS Outpatient [facility] [id number] 02/11/2019 09:00:00 02/14/2019 12:40:00 DIS Inpatient [facility] MED-SURG [id number] 02/07/2019 07:25:00 02/11/2019 09:00:00 DIS Inpatient [facility] ICU [id number] 01/28/2019 11:49:00 01/28/2019 17:45:00 [id number] 07/13/2018 15:23:00 07/13/2018 23:59:00 DIS Outpatient ABDI CHAKRABORTY [id number] 02/07/2019 14:44:39 Document Registration [id number] 06/02/2018 13:46:00 Document Registration
[2019-03-12] MEDS ORDERED: ONDANSETRON 4 MG/2 ML (SDV) Z0FRAN IVP ONE (13:15)
[2019-03-12 13:40] LABS: BASOPHILS % (AUTO) 0 % (0-10); EOSINOPHILS # (AUTO) 0.2 10^3/uL (0.0-0.3); EOSINOPHILS % (AUTO) 2 % (0-10); HEMATOCRIT 34 % (35-52); HEMOGLOBIN 11.3 G/DL (11.5-16.0); LYMPHOCYTES # (AUTO) 1.2 X 10^3 (1.0-4.0); LYMPHOCYTES % (AUTO) 10 % (12-44); MEAN CORPUSCULAR HEMOGLOBIN 31 PG (25-34); MEAN CORPUSCULAR HGB CONC 33 G/DL (32-36); MEAN CORPUSCULAR VOLUME 92 FL (80-99); MEAN PLATELET VOLUME 9.5 FL (7.4-10.4); MONOCYTES # (AUTO) 0.9 X 10^3 (0.0-1.0); MONOCYTES % (AUTO) 7 % (0-12); NEUTROPHILS # (AUTO) 10.3 X 10^3 (1.8-7.8); NEUTROPHILS % (AUTO) 82 % (42-75); PLATELET COUNT 283 10^3/uL (130-400); RED CELL DISTRIBUTION WIDTH 13.8 % (10.0-14.5); WHITE BLOOD COUNT 12.7 10^3/uL (4.3-11.0)
[2019-03-12 13:53] LABS: BILIRUBIN,URINE NEGATIVE (NEGATIVE); CLARITY,URINE CLEAR; COLOR,URINE YELLOW; GLUCOSE, URINE (UA) 1+ (NEGATIVE); KETONES,URINE 1+ (NEGATIVE); LEUKOCYTE ESTERASE ,URINE 3+ (NEGATIVE); NITRITE,URINE NEGATIVE (NEGATIVE); PH,URINE 5 (5-9); PROTEIN,URINE 3+ (NEGATIVE); UROBILINOGEN,URINE NORMAL (NORMAL)
[2019-03-12 14:02] LABS: ALBUMIN 3.7 GM/DL (3.2-4.5); BILIRUBIN,TOTAL 0.6 MG/DL (0.1-1.0); CALCIUM 9.4 MG/DL (8.5-10.1); CREATININE SERUM 1.27 MG/DL (0.60-1.30); POTASSIUM 4.3 MMOL/L (3.6-5.0); TOTAL PROTEIN 6.3 GM/DL (6.4-8.2)
[2019-03-12 14:05] LABS: BACTERIA,URINE FEW /HPF; RBC,URINE TNTC /HPF; WBC,URINE 50-100 /HPF
--- NOTE | 2019-03-12 14:57 | Diagnostic Imaging Report ---
EXAM: ABDOMEN, FLAT UPRIGHT/DECUB INDICATION: Constipation. Trouble urinating. COMPARISON: None. FINDINGS: Moderate amount of stool throughout the colon and rectum. Nonspecific small bowel gas pattern. Advanced spondylotic and scoliotic changes in the lumbar spine. No acute osseous findings. IMPRESSION: 1. No evidence of bowel obstruction. 2. Moderate amount of stool throughout the colon and rectum may represent a degree of constipation. Dictated by: Dictated on workstation # [id number]
[2019-03-12] MEDS ORDERED: NS IV 1000 ML 1,000 ML IV ONE (14:58)
[2019-03-12] MEDS ORDERED: cefTRIAXone FOR IV USE 1,000 MG in WATER (STERILE) FOR INJECTION 10 ML IV ONE (15:00)
[2019-03-12] MEDS ORDERED: HOLD METFORMIN - RECEIVED CONTRAST 20 ML VIAL IV SCH (15:15)
[2019-03-12] MEDS ORDERED: NS 100 ML (IVPB) BAG IV ONE (15:15)
[2019-03-12] MEDS ORDERED: IOHEXOL 350 MG/ML 100 ML (OMNIPAQUE 350) VIAL IV ONE (15:15)
[2019-03-12] MEDS ORDERED: PROMETHAZINE INJ 25 MG/ML (PHENERGAN) AMP IVP ONE (15:45)
--- NOTE | 2019-03-12 15:49 | Diagnostic Imaging Report ---
PROCEDURE: CT abdomen and pelvis with contrast. TECHNIQUE: Multiple contiguous axial images were obtained through the abdomen and pelvis after administration of intravenous contrast. Auto Exposure Controls were utilized during the CT exam to meet ALARA standards for radiation dose reduction. INDICATION: Abdominal pain and constipation. COMPARISON: Prior examination from 01/08/2019. FINDINGS: There is a persistent noncalcified spiculated mass in the right lung base. This measures 1.8 cm. There is some minimal interstitial scarring in the right lung base. There is a hiatal hernia. The liver is normal in size and without focal lesions. Gallbladder is unremarkable. There is no biliary ductal dilatation. Spleen is normal. The pancreas is unremarkable. There is unchanged nodularity in the left adrenal gland. Right adrenal gland is normal in appearance. There is a parapelvic cyst in the left kidney. There is moderate atherosclerotic aorta which is nonaneurysmal. The bowel gas pattern is nonspecific. There is moderately severe diverticular disease of the sigmoid colon without evidence of diverticulitis. There is no ascites. No free air. No focal inflammatory changes. There are degenerative changes in the spine. IMPRESSION: 1. Moderate hiatal hernia. 2. Persistent noncalcified spiculated mass in the right lung base. This remains suspect for neoplasm. 3. Unchanged nodularity in the left adrenal gland. This remains nonspecific, however, neoplasm cannot be excluded. 4. Moderate to severe diverticular disease without evidence of diverticulitis. 5. Multiple left parapelvic cysts. 6. Degenerative changes in the spine. Dictated by: Dictated on workstation # [id number]
--- NOTE | 2019-03-12 16:01 | ED General ---
General Chief Complaint: Abdominal/GI Problems Stated Complaint: ABD PAIN Nursing Triage Note: Pt to rm 7 in wheelchair. Pt c/o abdominal pain and constipation that has worsened over the last three days. Pt reports Dr. Ledesma has diagnosed pt with a L abdominal mass. Pt requested to have Dr. Ledesma called to the ED. Pt also reports uterine cancer, and recent hospitalization for sepsis. Pt reports taking hydrocodone 10 mg 5 mins [employer]. Nursing Sepsis Screen: No Definite Risk Source of Information: Patient Exam Limitations: No Limitations History of Present Illness Date Seen by Provider: Mar 12, 2019 Time Seen by Provider: 12:38 Initial Comments This 78-year-old woman presents to the emergency room with primary complaint of left lower quadrant pain and nausea. Patient has a history of uterine cancer which was previously treated in [place] with chemotherapy and radiation. She stopped treatment due to side effects. She has had recent complications with development of a pelvic mass obstructing the left ureter and a pulmonary mass. She also had a PE about one month ago and is now anticoagulated on Eliquis. She has had multiple visits to hospitals recently. Patient also states she feels constipated. A ureteral stent has been recommended for the left ureteral obstruction and outpatient referral is being pursued. However, patient cannot tolerate the symptoms any longer. She takes hydrocodone for the pain. She states the cancer Center in [place] may continue treating her with Keytruda. Allergies and Home Medications Allergies Coded Allergies: No Known Drug Allergies (Unverified , 01/04/19) Home Medications Allopurinol 100 Mg Tablet, 100 MG PO DAILY, (Reported) Apixaban 5 Mg Tablet, 5 MG PO BID Take 2 pills twice daily for 3 days then 1 pill twice daily lifelong Prescribed by: VELASQUEZ LEDESMA on 01/12/19 1035 Cholecalciferol (Vitamin D3) 1,000 Unit Capsule, 1,000 UNIT PO DAILY, (Reported) Clobetasol Propionate 50 Ml Solution, TOP DAILY PRN for ITCHING, (Reported) Glyburide 5 Mg Tablet, 5 MG PO BID, (Reported) Hydrocodone/Acetaminophen 1 Each Tablet, 1 TAB PO QID PRN for PAIN-MODERATE Prescribed by: VELASQUEZ LEDESMA on 01/12/19 1035 Ipratropium/Albuterol Sulfate 3 Ml Ampul.neb, 3 ML INH RTQID Prescribed by: VELASQUEZ LEDESMA on 01/12/19 1035 Ketoconazole 120 Ml Shampoo, TOP Q48H, (Reported) L.acidoph & Paracasei,B.lactis 1 Each Capsule, 1 CAP PO DAILY, (Reported) Latanoprost 2.5 Ml Drops, 1 DROP OD HS, (Reported) Metoprolol Succinate 50 Mg Tab.er.24h, 50 MG PO HS, (Reported) Olmesartan/Amlodipin/Hcthiazid 1 Each Tablet, 1 TAB PO DAILY, (Reported) [place]-3 Fatty Acids 1,000 Mg Capsule, 2,000 MG PO DAILY, (Reported) Pediatric Multivit Comb No.76 1 Each Tab.chew, 1 TAB.CHEW PO DAILY, (Reported) Patient Home Medication List Home Medication List Reviewed: Yes Review of Systems Review of Systems Constitutional: no symptoms reported EENTM: no symptoms reported Respiratory: see HPI Cardiovascular: no symptoms reported Gastrointestinal: see HPI Genitourinary: no symptoms reported : No Musculoskeletal: no symptoms reported Skin: no symptoms reported Psychiatric/Neurological: No Symptoms Reported Hematologic/Lymphatic: See HPI Immunological/Allergic: see HPI Past Dbzskjh-Fikoow-Ykuxbc Hx Patient Social History Alcohol Use: Denies Use Recreational Drug Use: No Type Used: Cigarettes Recent Foreign Travel: No Contact w/Someone Who Travel: No Recent Infectious Disease Expo: No Recent Hopitalizations: No Past Medical History Surgeries: Yes (HYST/BSO 04/2017; 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) Appendectomy, Hysterectomy, Oophorectomy, Orthopedic Respiratory: No Cardiac: Yes Chronic Edema/Swelling, Hypertension Neurological: Yes Reproductive Disorders: Yes (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 CANCER) 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, 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 Genitourinary: No Gastrointestinal: No Musculoskeletal: Yes (CHRONIC BACK, NECK AND KNEE PAIN ) Degenerate Disk Disease, Arthritis, Chronic Back Pain, Gout Endocrine: Yes (DOES NOT OWN GLUCOMETER/NEVER CHECKS BLOOD GLUCOSE) Diabetes, Non-Insulin dep HEENT: Yes Macular Degeneration Cancer: Yes (UTERINE CANCER DX APRIL 2017--S/P HYST/BSO AND IS CURRENTLY ON KEYTRUDA) Uterine Did You Recieve Any Treatments: Yes What Type of Treatment Did You: Chemotherapy, Surgical Intervention Psychosocial: No Integumentary: No Blood Disorders: No Physical Exam Vital Signs Vital Signs - First Documented 03/12/19 12:30 Temp 99.9 Pulse 84 Resp 18 B/P (MAP) 140/72 (94) Pulse Ox 98 O2 Delivery Room Air Capillary Refill : Less Than 3 Seconds Height, Weight, BMI Height: 5'6.50" Weight: 200lbs. 8.0oz. 90.155369ws; 36.4 BMI Method:Stated General Appearance: WD/WN, Anxious, Mild Distress HEENT: PERRL/EOMI, Normal ENT Inspection, Pharynx Normal Neck: Normal Inspection Respiratory: Lungs Clear, Normal Breath Sounds, No Accessory Muscle Use, No Respiratory Distress Cardiovascular: Regular Rate, Rhythm, No Edema, No Murmur Gastrointestinal: Normal Bowel Sounds, Soft; No Distended; Tenderness (Left lower quadrant) Extremity: Normal Capillary Refill, No Pedal Edema Neurologic/Psychiatric: Alert, Oriented x3, No Motor/Sensory Deficits, bone tender II- XII Norm as Tested, Other (Mildly anxious) Skin: Normal Color, Warm/Dry Focused Exam Lactate Level 03/12/19 15:54: Lactic Acid Level 1.11 Lactic Acid Level Laboratory Tests Test 03/12/19 15:54 Lactic Acid Level 1.11 MMOL/L (0.50-2.00) Progress/Results/Core Measures Suspected Sepsis Recent Fever Within 48 Hours: No Infection Criteria Present: None New/Unexplained Altered Menta: No Sepsis Screen: No Definite Risk SIRS Temperature:99.9 Pulse: 84 Respiratory Rate: 18 Laboratory Tests 03/12/19 13:30: White Blood Count 12.7H Blood Pressure 140 /72 Mean: 94 03/12/19 15:54: Lactic Acid Level 1.11 Laboratory Tests 03/12/19 13:30: Creatinine 1.27, Platelet Count 283, Total Bilirubin 0.6 Results/Orders Lab Results Laboratory Tests Test 03/12/19 13:30 03/12/19 13:45 03/12/19 15:54 Range/Units White Blood Count 12.7 H 4.3-11.0 10^3/uL Red Blood Count 3.69 L 4.35-5.85 10^6/uL Hemoglobin 11.3 L 11.5-16.0 G/DL Hematocrit 34 L 35-52 % Mean Corpuscular Volume 92 80-99 FL Mean Corpuscular Hemoglobin 31 25-34 PG Mean Corpuscular Hemoglobin Concent 33 32-36 G/DL Red Cell Distribution Width 13.8 10.0-14.5 % Platelet Count 283 130-400 10^3/uL Mean Platelet Volume 9.5 7.4-10.4 FL Neutrophils (%) (Auto) 82 H 42-75 % Lymphocytes (%) (Auto) 10 L 12-44 % Monocytes (%) (Auto) 7 0-12 % Eosinophils (%) (Auto) 2 0-10 % Basophils (%) (Auto) 0 0-10 % Neutrophils # (Auto) 10.3 H 1.8-7.8 X 10^3 Lymphocytes # (Auto) 1.2 1.0-4.0 X 10^3 Monocytes # (Auto) 0.9 0.0-1.0 X 10^3 Eosinophils # (Auto) 0.2 0.0-0.3 10^3/uL Basophils # (Auto) 0.0 0.0-0.1 10^3/uL Sodium Level 134 L 135-145 MMOL/L Potassium Level 4.3 3.6-5.0 MMOL/L Chloride Level 102 98-107 MMOL/L Carbon Dioxide Level 22 21-32 MMOL/L Anion Gap 10 5-14 MMOL/L Blood Urea Nitrogen 20 H 7-18 MG/DL Creatinine 1.27 0.60-1.30 MG/DL Estimat Glomerular Filtration Rate 41 BUN/Creatinine Ratio 16 Glucose Level 166 H 70-105 MG/DL Calcium Level 9.4 8.5-10.1 MG/DL Corrected Calcium 9.6 8.5-10.1 MG/DL Total Bilirubin 0.6 0.1-1.0 MG/DL Aspartate Amino Transf (AST/SGOT) 22 5-34 U/L Alanine Aminotransferase (ALT/SGPT) 16 0-55 U/L Alkaline Phosphatase 80 40-136 U/L Total Protein 6.3 L 6.4-8.2 GM/DL Albumin 3.7 3.2-4.5 GM/DL Lipase 53 8-78 U/L Urine Color YELLOW Urine Clarity CLEAR Urine pH 5 5-9 Urine Specific [place] 1.015 L 1.016-1.022 Urine Protein 3+ H NEGATIVE Urine Glucose (UA) 1+ H NEGATIVE Urine Ketones 1+ H NEGATIVE Urine Nitrite NEGATIVE NEGATIVE Urine Bilirubin NEGATIVE NEGATIVE Urine Urobilinogen NORMAL NORMAL MG/DL Urine Leukocyte Esterase 3+ H NEGATIVE Urine RBC (Auto) 5+ H NEGATIVE Urine RBC TNTC H /HPF Urine WBC 50-100 H /HPF Urine Squamous Epithelial Cells NONE /HPF Urine Crystals NONE /LPF Urine Bacteria FEW H /HPF Urine Casts NONE /LPF Urine Mucus NEGATIVE /LPF Urine Culture Indicated YES Lactic Acid Level 1.11 0.50-2.00 MMOL/L My Orders Orders - HECTOR DELCID MD Cbc With Automated Diff (03/12/19 12:38) Comprehensive Metabolic Panel (03/12/19 12:38) Lipase (03/12/19 12:38) Ua Culture If Indicated (03/12/19 12:38) Ed Iv/Invasive Line Start (03/12/19 12:38) Abdomen, Flat & Upright/Decub (03/12/19 13:12) Ondansetron Injection (Zofran Injectio (03/12/19 13:15) Urine Culture (03/12/19 13:45) Blood Culture (03/12/19 14:18) Lactic Acid Analyzer (03/12/19 14:18) Ct Abdomen/Pelvis W (03/12/19 14:58) Ns Iv 1000 Ml (Sodium Chloride 0.9%) (03/12/19 14:58) Ceftriaxone For Iv Use (Rocephin For I (03/12/19 15:00) Iohexol Injection (Omnipaque 350 Mg/Ml 1 (03/12/19 15:15) Received Contrast (Hold Metformin- Contr (03/12/19 15:15) Ns (Ivpb) (Sodium Chloride 0.9% Ivpb Bag (03/12/19 15:15) Promethazine Injection (Phenergan Injec (03/12/19 15:45) Acetaminophen Tablet (Tylenol Tablet) (03/12/19 16:30) Meropenem (Merrem 1000 Mg) (03/12/19 16:30) Medications Given in ED Current Medications Medications Dose Ordered Sig/Emily Route Start Time Stop Time Status Last Admin Dose Admin Acetaminophen 1,000 mg ONCE ONCE PO 03/12/19 16:30 03/12/19 16:31 DC 03/12/19 16:34 1,000 MG Meropenem 1000 mg/ Sterile Water 20 ml @ 240 mls/hr ONCE ONCE IV 03/12/19 16:30 03/12/19 16:34 DC 03/12/19 16:53 240 MLS/HR Ondansetron HCl 8 mg ONCE ONCE IVP 03/12/19 13:15 03/12/19 13:16 DC 03/12/19 13:26 8 MG Sodium Chloride 1,000 ml @ 0 mls/hr Q0M ONCE IV 03/12/19 14:58 03/12/19 15:00 DC 03/12/19 15:52 1,000 MLS/HR Vital Signs/I&O 03/12/19 03/12/19 03/12/19 03/12/19 12:30 17:55 18:12 18:15 Temp 99.9 97.1 97.1 Pulse 84 73 69 Resp 18 20 20 B/P (MAP) 140/72 (94) 144/63 (90) 113/60 (77) Pulse Ox 98 96 98 98 O2 Delivery Room Air Room Air Room Air Room Air 03/12/19 18:56 Temp 97.1 Pulse 74 Resp 20 B/P (MAP) 144/63 Pulse Ox 98 O2 Delivery Room Air Capillary Refill : Less Than 3 Seconds Blood Pressure Mean: 94 Progress Note : Progress Note Patient's nausea was treated with Phenergan and Zofran. Patient was feeling chilled and was given Tylenol. Urinary tract infection was suspected based on urinalysis. Meropenem was prescribed. There is a mass in the left pelvis that appears to be obstructing the ureter causing hydronephrosis. This could be the cause of her pain. Case was discussed with Dr. Thornton and Dr. Ledesma. Admission for symptom management and treatment of urinary tract infection in preparation for ureteral stenting was felt appropriate by all parties involved. Diagnostic Imaging Plain Films/CT/US/NM/MRI: abdomen, pelvis Comments CT abdomen and pelvis viewed by me and report reviewed. See report below: NAME: ASHU ROQUE [facility] REC#: [id number] PT STATUS: REG ER : 1940 PHYSICIAN: HECTOR DELCID MD ADMIT DATE: 03/12/19/ER Draft Date of Exam:03/12/19 CT ABDOMEN/PELVIS W PROCEDURE: CT abdomen and pelvis with contrast. TECHNIQUE: Multiple contiguous axial images were obtained through the abdomen and pelvis after administration of intravenous contrast. Auto Exposure Controls were utilized during the CT exam to meet ALARA standards for radiation dose reduction. INDICATION: Abdominal pain and constipation. COMPARISON: Prior examination from 01/08/2019. FINDINGS: There is a persistent noncalcified spiculated mass in the right lung base. This measures 1.8 cm. There is some minimal interstitial scarring in the right lung base. There is a hiatal hernia. The liver is normal in size and without focal lesions. Gallbladder is unremarkable. There is no biliary ductal dilatation. Spleen is normal. The pancreas is unremarkable. There is unchanged nodularity in the left adrenal gland. Right adrenal gland is normal in appearance. There is a parapelvic cyst in the left kidney. There is moderate atherosclerotic aorta which is nonaneurysmal. The bowel gas pattern is nonspecific. There is moderately severe diverticular disease of the sigmoid colon without evidence of diverticulitis. There is no ascites. No free air. No focal inflammatory changes. There are degenerative changes in the spine. IMPRESSION: 1. Moderate hiatal hernia. 2. Persistent noncalcified spiculated mass in the right lung base. This remains suspect for neoplasm. 3. Unchanged nodularity in the left adrenal gland. This remains nonspecific, however, neoplasm cannot be excluded. 4. Moderate to severe diverticular disease without evidence of diverticulitis. 5. Multiple left parapelvic cysts. 6. Degenerative changes in the spine. Dictated on workstation # [id number] Dict: 03/12/19 1539 Trans: 03/12/19 1548 [facility] [id number] Interpreted by: DOLORES GELLER MD Diagonstic Imaging: Xray Plain Films/CT/US/NM/MRI: abdomen, pelvis Comments NAME: ASHU ROQUE [facility] REC#: [id number] PT STATUS: REG ER : 1940 PHYSICIAN: HECTOR DELCID MD ADMIT DATE: 03/12/19/ER Signed Date of Exam: 03/12/19 ABDOMEN, FLAT & UPRIGHT/DECUB EXAM: ABDOMEN, FLAT UPRIGHT/DECUB INDICATION: Constipation. Trouble urinating. COMPARISON: None. FINDINGS: Moderate amount of stool throughout the colon and rectum. Nonspecific small bowel gas pattern. Advanced spondylotic and scoliotic changes in the lumbar spine. No acute osseous findings. IMPRESSION: 1. No evidence of bowel obstruction. 2. Moderate amount of stool throughout the colon and rectum may represent a degree of constipation. Dictated by: Dictated on workstation # [id number] Dict: 03/12/19 1453 Trans: 03/12/19 1545 Interpreted by: OTF HERR MD Electronically signed by: OTF HERR MD 03/12/19 1545 Reviewed: Reviewed by Me Departure Communication (Admissions) Time/Spoke to Admitting Phy: 16:10 Dr. Ledesma Time/Spoke to Consulting Phy: 15:15 Impression Primary Impression: Urinary tract infection Qualified Codes: N39.0 - Urinary tract infection, site not specified; R31.9 - Hematuria, unspecified Additional Impressions: Ureteral obstruction, left Pelvic mass Abdominal pain Qualified Codes: R10.9 - Unspecified abdominal pain Nausea Disposition: ADMITTED INPATIENT Condition: Improved Admissions Decision to Admit Reason: Admit from ER (General) Decision to Admit/Date: Mar 12, 2019 Time/Decision to Admit Time: 15:15 Departure-Patient Inst. Referrals: NO,LOCAL PHYSICIAN (PCP/Family) Primary Care Physician HECTOR DELCID MD Mar 12, 2019 16:01
[2019-03-12] MEDS ORDERED: MEROPENEM 1,000 MG in WATER (STERILE) FOR INJECTION 20 ML IV ONE (16:30)
[2019-03-12] MEDS ORDERED: ACETAMINOPHEN 500 MG TAB (TYLENOL) PO ONE (16:30)
--- OUTSIDE RECORDS SUMMARY | 2019-03-12 17:24 | XMS REPORT | Continuity of Care Document ---
Author Organization Unknown Address Unknown Allergies Active Description Code Type Severity Reaction Onset Reported/Identified Relationship to Patient Clinical Status Yes No known allergies Drug N/A N/A Yes LEVAQUIN UNKNOWN UNKNOWN Yes SULFA (SULFONAMIDE ANTIBIOTICS) MODERATE MODERATE Yes SULFA (SULFONAMIDE ANTIBIOTICS) MODERATE OTHER Yes No Known Drug Allergies [id number] Drug Allergy Unknown N/A 01/04/2019 Medications Medication [...] CORDELIA LIQ ml 02/08/2019 03/09/2019 PRN Daily Cbqmrfmm-huky-llr-folic acid) tab,CHEWable (Centrum) TAB 02/08/2019 03/09/2019 Daily&0900 [...] MAGNESIA LIQ ml 02/12/2019 03/13/2019 PRN Daily Kpqflbod-fbfw-dyh-folic acid) tab,CHEWable (Centrum) TAB 02/12/2019 03/13/2019 Daily&0900 [...] I10 ESSENTIAL (PRIMARY) HYPERTENSION 01/04/2019 BISMARK DO NYDIA K Ot M10.9 GOUT, UNSPECIFIED 01/04/2019 BISMARK [...] H35.30 UNSPECIFIED MACULAR DEGENERATION 01/12/2019 BALTAZAR DO VELASQUEZ Ot I10 ESSENTIAL (PRIMARY) HYPERTENSION 01/12/2019 BALTAZAR [...] 01/12/2019 BALTAZAR MOORE VELASQUEZ Ot Z79.899 OTHER HAND TIRE TRIMMER (CURRENT) DRUG THERAPY 01/12/2019 BALTAZAR MOORE VELASQUEZ [...] BALTAZAR DO VELASQUEZ Ot E87.6 HYPOKALEMIA 01/12/2019 BLATAZAR MOORE VELASQUEZ Ot H35.30 UNSPECIFIED MACULAR DEGENERATION [...] HEMATURIA 01/12/2019 BALTAZAR MOORE VELASQUEZ Ot Z79.01 HAND TIRE TRIMMER (CURRENT) USE OF ANTICOAGULANT 01/12/2019 BALTAZAR MOORE VELASQUEZ Ot Z79.899 OTHER GROUP HOME (CURRENT) DRUG THERAPY 01/12/2019 LEDESMA VELASQUEZ Ot Z87.891 PERSONAL HISTORY OF NICOTINE DEPENDENCE 01/12/2019 BALTAZAR MOORE VELASQUEZ Ot Z91.19 PATIENT'S NONCOMPLIANCE W [facility] 01/12/2019 BALTAZAR MOORE VELASQUEZ Ot [...] 5-8.5 Urine-Protein Negative Negative Urine-RBC 0-2/HPF Urine-Specific [place] 1.025 1.000-1.030 Urine-WBC 5-10/HPF Urobilinogen 0.2 E.U./dL 0.2-1.0 Urine Culture - 07/13/18 15:28 PRELIM CULTURE RESULTS <10,000 Gram Positive Mixed Gustavo [id number] Skin Contaminant FINAL CULTURE RESULTS 20,000-50,000 Gram Positive Mixed Gustavo MEDIA PLATED Setup at 16:24 on 07/13/2018 CULTURE SOURCE Urine clean [id number]\ Complete urinalysis with reflex to culture - [...] FOR INFLUENZA A AND B ANTIGENS BY [facility] Complete blood count (CBC) with automated white [...] 5 MEDIA PLATED Setup at 17:51 on 02/07/[id number] Culture Media Position B27 CULTURE SOURCE Right Hand Blood Culture - 02/07/19 17:00 PRELIM CULTURE RESULTS Blood Culture Negative, No Growth Day 1 MEDIA PLATED Setup at 17:51 on 02/07/[id number] Culture Media Position B27 CULTURE SOURCE Right Hand CBC with Auto Diff - 02/07/19 17:07 Baso% 0.00 % 0.00-2.50 Eos 1.0 K/uL 0.0-0.7 Eos% 4.7 % 0.0-7.0 Hct 36.2 % 36.0-46.0 Hgb 12.0 Result Verified by Repeat Analysis g/dL 13.0-15.0 Lym 0.34 K/uL 0.60-3.40 Lym% 1.6 % 10.0-50.0 MCH 32.4 pg 27.0-31.0 MCHC 33.1 g/dL 32.0-36.0 MCV 97.8 fL 80.0-97.0 [place]% 2.0 % 0.0-12.0 MPV 9.6 fL 7.4-10.0 Marie% 91.7 % 37.0-80.0 Plt 325 K/uL 150-400 RBC 3.70 M/uL 3.60-5.00 RDW 12.6 % 11.6-14.8 WBC 20.72 Result Verified by Repeat Analysis K/uL 5.00-10.00 Marie 18.98 K/uL 2.00-6.90 [place] 0.4 K/uL 0.0-0.9 Baso 0.0 K/uL 0.0-0.2 [...] 5 MEDIA PLATED Setup at 17:52 on 02/07/[id number] Culture Media Position C50 CULTURE SOURCE Right AC Blood Culture - 02/07/19 17:30 PRELIM CULTURE RESULTS Blood Culture Negative, No Growth Day 1 MEDIA PLATED Setup at 17:52 on 02/07/[id number] Culture Media Position C50 CULTURE SOURCE Right [...] Status Pt. Type Provider Facility Loc./Unit Complaint [id number] 01/28/2019 11:30:00 01/28/2019 23:59:59 DIS Outpatient ALNE KINNEY [facility] [id number] 01/04/2019 07:17:42 01/04/2019 23:59:[address] [facility] [id number] 07/19/2018 15:52:43 07/19/2018 23:59:59 DIS Outpatient ABDI CHAKRABORTY [facility] [id number] 11/04/2017 14:51:40 11/04/2017 23:59:59 DIS Outpatient ABDI CHAKRABORTY [facility] [id number] 03/31/2017 10:45:00 03/31/2017 23:59:59 DIS Outpatient ABDI CHAKRABORTY [facility] [id number] 03/09/2017 13:11:00 03/09/2017 23:59:[address] [facility] Surgery D&C [id number] 03/03/2017 11:58:36 03/03/2017 23:59:[address] [facility] RAD CHRONIC VAGINAL DISCHARGE, POST MENOPAUSAL [id number] 01/31/2018 02:00:23 Document Registration [id number] 03/12/2017 02:01:15 Document Registration [id number] 03/03/2017 11:54:39 Document Registration [id number] 03/03/2017 02:00:44 Document Registration [id number] 02/03/2017 14:48:22 Document Registration [id number] 01/31/2017 02:01:30 Document Registration [id number] 09/09/2016 14:16:32 Document Registration [id number] 09/09/2016 13:58:54 Document Registration [id number] 09/09/2016 02:00:22 Document Registration [id number] 02/11/2019 09:00:00 Document Registration [id number] 02/07/2019 07:25:00 Document Registration [id number] 02/07/2019 15:00:00 Document Registration [id number] 01/08/2019 16:19:00 01/12/2019 14:50:00 DIS Inpatient VELASQUEZ LEDESMA DO [facility] 4TH UTI,PE,HX UTERINE [place] [id number] 01/04/2019 17:35:00 01/04/2019 21:08:00 DIS Emergency BISMARK NYDIA Nat [facility] ER DIZZY / BLACKING OUT [id number] 02/21/2019 16:24:00 02/21/2019 23:59:00 DIS Outpatient [facility] [id number] 02/11/2019 09:00:00 02/14/2019 12:40:00 DIS Inpatient [facility] MED-SURG [id number] 02/07/2019 07:25:00 02/11/2019 09:00:00 DIS Inpatient [facility] ICU [id number] 01/28/2019 11:49:00 01/28/2019 17:45:00 [facility] [id number] 07/13/2018 15:23:00 07/13/2018 23:59:00 DIS Outpatient ABDI CHAKRABORTY [id number] 02/07/2019 14:44:39 Document Registration [id number] 06/02/2018 13:46:00 Document Registration
--- NOTE | 2019-03-12 18:00 | NUR ---
NELLIEASHU REVELES admitted to room 416-1, with an admitting diagnosis of UTI,URETERAL CANCER, ABD PAIN, on 03/12/19 from ER via W/C, accompanied by ER STAFF.ASHU ROQUE introduced to surroundings, call light, bed controls, phone, TV, temperature control, lights, meal times, smoking policy, visitor policy, side rail policy, bathrooms and showers. Patient Rights given to patient in the handbook. ASHU ROQUE verbalizes understanding that [facility] is not responsible for the loss or damage to any personal effects or valuables that are kept in the patients posession during their hospitalization. The following Patient Care Plans were discussed with the PT: Discharge Planning, INFETION, PAIN, ALT URINARY ELIMINATION PATTERN, HIGH RISK INJURY. ASHU ROQUE verbalizes understanding of Interdisciplinary Patient Education. Patient and/or family were informed about the Rapid Response Team and its purpose. PT CAME TO FLOOR FROM ER WITH IV IN L AC
[2019-03-12] MEDS ORDERED: NS IV 1000 ML 1,000 ML ONE (18:06)
[2019-03-12 18:12] VITALS: BP 144/63
[2019-03-12 18:56] VITALS: BP 144/63
[2019-03-12] MEDS ORDERED: diphenhydrAMINE 25 MG TAB (BENADRYL) PO PRN (19:00)
[2019-03-12] MEDS ORDERED: MELATONIN 3 MG TABLET PO PRN (19:00)
[2019-03-12] MEDS ORDERED: fentaNYL INJECTION 100 MCG/2 ML AMP IVP PRN (19:00)
[2019-03-12] MEDS ORDERED: ONDANSETRON 4 MG/2 ML (SDV) Z0FRAN IVP PRN (19:00)
[2019-03-12] MEDS ORDERED: CALCIUM CARBONATE 500 MG (TUMS) TAB.CHEW PO PRN (19:00)
[2019-03-12] MEDS ORDERED: ALPRAZolam 0.25 MG (XANAX) TAB PO PRN (19:00)
[2019-03-12] MEDS: NS IV 1000 ML 1,000 ML IV SCH (19:14)
--- NOTE | 2019-03-12 19:38 | NUR ---
NOTE THAT MEDS ON DEC HAVE NOT BEEN VERIFIED BY PHARMACY THIS RN DID NOT GIVE -- ADVISED NOC RN
[2019-03-12 19:46] VITALS: BP 114/58
[2019-03-12] MEDS ORDERED: APIXABAN 5 MG (ELIQUIS) TABLET PO SCH (21:00)
[2019-03-12] MEDS ORDERED: LATANOPROST 0.005% (XALATAN) OPHTH SOLN 2.5 ML OD SCH (21:00)
[2019-03-12] MEDS: SENNA W/DOCUSATE (SENOKOT S) TABLET PO SCH ×2 (21:13→21:30)
[2019-03-12] MEDS: LACTULOSE SYRUP 10GM/15ML (ENULOSE) 30ML UDC PO SCH ×2 (21:13→21:30)
[2019-03-12] MEDS: DOCUSATE SODIUM 100 MG (COLACE) CAP PO SCH ×2 (21:14→21:30)
[2019-03-12] MEDS: BISACODYL 10 MG SUPP (DULCOLAX) PR SCH ×2 (21:15→21:30)
[2019-03-12] MEDS: POLYETHYLENE GLYCOL 17 GM (MIRALAX) PACK PO SCH ×2 (21:21→21:30)
[2019-03-12] MEDS: inSUlin ASPART (NovoLOG) 1 UNIT/0.01 ML (CHARGE PER UNIT) SC SCH (23:02)
[2019-03-12] MEDS: HYDROcodone/APAP 5 MG/325 MG (LORTAB) TAB PO PRN (23:12)
[2019-03-13 00:30] VITALS: BP 122/58
[2019-03-13] MEDS: meTOproloL SUCCINATE 50 MG (TOPROL XL) TAB PO SCH ×2 (00:39→21:30)
[2019-03-13 04:28] VITALS: BP 133/62
[2019-03-13] MEDS ORDERED: MEROPENEM 1,000 MG/SWFI 20 ML IV PUSH IV SCH ×2 (04:30)
[2019-03-13] MEDS: HYDROcodone/APAP 5 MG/325 MG (LORTAB) TAB PO PRN ×4 (05:11→19:18)
[2019-03-13] MEDS: NS IV 1000 ML 1,000 ML IV SCH ×2 (05:11→16:49)
[2019-03-13 06:19] LABS: BASOPHILS % (AUTO) 0 % (0-10); EOSINOPHILS # (AUTO) 0.3 10^3/uL (0.0-0.3); EOSINOPHILS % (AUTO) 4 % (0-10); HEMATOCRIT 30 % (35-52); HEMOGLOBIN 10.1 G/DL (11.5-16.0); LYMPHOCYTES # (AUTO) 1.1 X 10^3 (1.0-4.0); LYMPHOCYTES % (AUTO) 14 % (12-44); MEAN CORPUSCULAR HEMOGLOBIN 31 PG (25-34); MEAN CORPUSCULAR HGB CONC 33 G/DL (32-36); MEAN CORPUSCULAR VOLUME 93 FL (80-99); MEAN PLATELET VOLUME 9.7 FL (7.4-10.4); MONOCYTES # (AUTO) 0.9 X 10^3 (0.0-1.0); MONOCYTES % (AUTO) 11 % (0-12); NEUTROPHILS # (AUTO) 5.5 X 10^3 (1.8-7.8); NEUTROPHILS % (AUTO) 71 % (42-75); PLATELET COUNT 242 10^3/uL (130-400); WHITE BLOOD COUNT 7.8 10^3/uL (4.3-11.0)
[2019-03-13 06:53] LABS: CALCIUM 8.8 MG/DL (8.5-10.1); CREATININE SERUM 1.01 MG/DL (0.60-1.30)
[2019-03-13] MEDS: KCL 20 MEQ TAB (K-DUR) PO SCH (06:54)
[2019-03-13] MEDS: glyBURIDE 2.5 MG (MICRONASE) TAB PO SCH ×2 (06:54→16:43)
[2019-03-13] MEDS: inSUlin ASPART (NovoLOG) 1 UNIT/0.01 ML (CHARGE PER UNIT) SC SCH ×4 (06:55→21:36)
[2019-03-13 08:00] VITALS: BP 134/77
--- NOTE | 2019-03-13 08:17 | History & Physical-Hospitalist ---
History of Present Illness HPI/Chief Complaint CC: Abdominal pain HPI: This is a 78-year-old white female clinic patient of mine with a history of uterine cancer status post hysterectomy at [facility] 3 years ago who had a recent recurrence obtaining most of her care at [facility] who I took care of for 12 days at [facility] on swing bed status after pneumonia and diverticulitis who is deemed a nonsurgical candidate from and [facility] who presented to the ER with abdominal pain. She is known to have the tumor pressing on the left ureter and the left sigmoid colon causing outflow urinary flow obstruction in addition to obstruction of the sigmoid colon causing constipation. She is placed on meropenem considering high risk for ESBL and I have asked all of his care to visit with her since she's been told by 2 separate facilities that she meets hospice. She has an appointment to see Dr. Chung this Wednesday at [facility] visiting physician clinic. Urology will placed stent in the obstructed left ureter tomorrow and we will continue working on the constipation with soapsuds enema if needed to completely evacuate the bowels. Reviewed labs and CT scan. Source: patient, family, RN/MD, old records Exam Limitations: no limitations Date Seen 03/13/19 Time Seen by a Provider: 09:00 Attending Physician Jeannette Horn DO PCP No,Local Physician Referring Physician Date of Admission Mar 12, 2019 at 17:19 Home Medications & Allergies Home Medications Reviewed patient Home Medication Reconciliation performed by pharmacy medication reconciliations master fire control technician and/or nursing. Patients Allergies have been reviewed. Allergies Allergies Coded Allergies No Known Drug Allergies (Unverified01/04/19) Past Bwludbw-Xsrxxg-Wtnyvf Hx Past Med/Social Hx: Reviewed Nursing Past Med/Soc Hx, Reviewed and Corrections made Patient Social History Marrital Status: Employed/Student: retired Alcohol Use: Denies Use Recreational Drug Use: No Smoking Status: Never a Smoker Type Used: Cigarettes Physical Abuse Screen: No Sexual Abuse: No Recent Foreign Travel: Yes Contact w/other who traveled: No Recent Hopitalizations: No Recent Infectious Disease Expo: No Past Medical History Surgeries: Appendectomy, Hysterectomy, Oophorectomy, Orthopedic Respiratory: Pulmonary Embolism Cardiac: Atrial Fibrillation, Chronic Edema/Swelling, High Cholesterol, Hyperte nsion Neurological: Neuropathy Reproductive: Yes (UTERINE CANCER) Hysterectomy, Menopausal Genitourinary: Kidney Infection, Bladder Infection, Kidney Stones Gastrointestinal: Obstructive Bowel, Chronic Constipation Musculoskeletal: Degenerate Disk Disease, Arthritis, Chronic Back Pain, Gout Endocrine: Diabetes, Non-Insulin dep HEENT: Macular Degeneration Cancer: Uterine Did You Recieve Any Treatments: Yes What Type of Treatment Did You: Chemotherapy, Surgical Intervention History of Blood Disorders: No Review of Systems Constitutional: see HPI, weakness EENTM: no symptoms reported Respiratory: no symptoms reported Cardiovascular: no symptoms reported Gastrointestinal: constipation Genitourinary: decreased output, dysuria, hematuria, incontinence Musculoskeletal: no symptoms reported Skin: no symptoms reported Psychiatric/Neurological: No Symptoms Reported All Other Systems Reviewed Negative Unless Noted: Yes Physical Exam Physical Exam Vital Signs Vital Signs - First Documented 03/12/19 12:30 Temp 99.9 Pulse 84 Resp 18 B/P (MAP) 140/72 (94) Pulse Ox 98 O2 Delivery Room Air Capillary Refill : Less Than 3 SecondsLess Than 3 Seconds Height, Weight, BMI Height: 5'6.00" Weight: 214lbs. 0.0oz. 97.744935am; 34.5 BMI Method:Stated General Appearance: No Apparent Distress, WD/WN, Chronically ill, Obese Eyes: Right Eye Normal Inspection, Right Eye PERRL HEENT: PERRL/EOMI, Normal ENT Inspection, Pharynx Normal, Moist Mucous Membranes Neck: Full Range of Motion, Normal Inspection, Non Tender Respiratory: Chest Non Tender, Lungs Clear, Normal Breath Sounds, No Accessory Muscle Use, No Respiratory Distress Cardiovascular: Regular Rate, Rhythm, No Edema, No Gallop, No JVD, No Murmur, Normal Peripheral Pulses Gastrointestinal: Normal Bowel Sounds, No Organomegaly, No Pulsatile Mass, Soft Back: Normal Inspection, No CVA Tenderness, No Vertebral Tenderness Extremity: Normal Capillary Refill, Normal Inspection, Normal Range of Motion, Non Tender, No Calf Tenderness, No Pedal Edema Neurologic/Psychiatric: Alert, Oriented x3, No Motor/Sensory Deficits, Normal M ood/Affect Skin: Normal Color, Warm/Dry Lymphatic: No Adenopathy Results Results/Procedures Labs Laboratory Tests 03/12/19 13:30 03/13/19 05:31 03/13/19 05:51 Patient resulted labs reviewed. Assessment/Plan Admission Diagnosis Assessment: Severe abdominal pain from tumor Obstructed left ureter from tumor UTI high risk for ESBL on Meropenem until UCx is completed Clostridium on BCx? Covered with Meropenem in meantime DM HTN HLP AF Gout Neuropathy PE 3 months ago on OAC Plan: Abx Stent tomorrow Bowel evacuation Admission Status: Inpatient Order (span 2 midnights) Reason for Inpatient Admission: Obstructed ureter with UTI and Clostridia in blood Diagnosis/Problems Diagnosis/Problems (1) Ureteral obstruction, left Status: Acute (2) Pseudoobstruction of colon Status: Acute (3) Renal insufficiency Status: Acute (4) Abdominal pain Status: Acute Qualifiers: Abdominal location: unspecified location Qualified Codes: R10.9 - Unspecified abdominal pain (5) Nausea Status: Acute (6) Pelvic mass Status: Chronic (7) Urinary tract infection Status: Acute Qualifiers: Urinary tract infection type: site unspecified Hematuria presence: with hematuria Qualified Codes: N39.0 - Urinary tract infection, site not specified; R31.9 - Hematuria, unspecified (8) Uterine cancer Status: Chronic Qualifiers: Malignant neoplasm of body of uterus location: unspecified location (9) Gout Status: Chronic Qualifiers: Gout site: unspecified site Gout etiology: unspecified cause Chronicity: unspecified Qualified Codes: M10.9 - Gout, unspecified (10) Diabetes mellitus Status: Chronic Qualifiers: Diabetes mellitus type: type 2 Diabetes mellitus fpc insulin use: without fpc use Diabetes mellitus complication status: with other specified complication Qualified Codes: E11.69 - Type 2 diabetes mellitus with other specified complication (11) Pulmonary embolism Status: Chronic Qualifiers: Pulmonary embolism type: other Chronicity: chronic Acute cor pulmonale presence: without acute cor pulmonale Qualified Codes: I27.82 - Chronic pulmonary embolism (12) Leukocytosis Status: Acute Qualifiers: Leukocytosis type: leukemoid reaction Qualified Codes: D72.823 - Leukemoid reaction (13) Anemia Status: Chronic Qualifiers: Anemia type: unspecified type Qualified Codes: D64.9 - Anemia, unspecified Clinical Quality Measures DVT/VTE Risk/Contraindication: Risk Factor Score Per Nursin RFS Level Per Nursing on Admit: 3=High JEANNETTE HORN DO Mar 13, 2019 08:17
[2019-03-13] MEDS: DOCUSATE SODIUM 100 MG (COLACE) CAP PO SCH ×2 (09:34→21:30)
[2019-03-13] MEDS: POLYETHYLENE GLYCOL 17 GM (MIRALAX) PACK PO SCH ×2 (09:34→21:30)
[2019-03-13] MEDS: BISACODYL 10 MG SUPP (DULCOLAX) PR SCH ×2 (09:35→21:31)
[2019-03-13] MEDS: LACTULOSE SYRUP 10GM/15ML (ENULOSE) 30ML UDC PO SCH ×2 (09:35→21:32)
[2019-03-13] MEDS: ALLOPURINOL 100 MG (ZYLOPRIM) TAB PO SCH (09:35)
[2019-03-13] MEDS: SENNA W/DOCUSATE (SENOKOT S) TABLET PO SCH ×2 (09:35→21:35)
[2019-03-13] MEDS: DILTIAZEM 120 MG (CARDIZEM CD) CAP PO SCH (09:35)
[2019-03-13] MEDS: amLODIPine 5 MG (NORVASC) TAB PO SCH (09:35)
[2019-03-13] MEDS: MEROPENEM 500 MG/SWFI 10 ML IV PUSH IV SCH ×6 (09:47→21:31)
[2019-03-13] MEDS ORDERED: SENN-148 PO (10:06)
[2019-03-13] MEDS ORDERED: MAGN400T6 PO (10:06)
[2019-03-13] MEDS ORDERED: HYDR-3820 PO (10:06)
[2019-03-13] MEDS ORDERED: BISA10SU18 RC (10:06)
[2019-03-13] MEDS ORDERED: L.AC1CAP6 PO (10:06)
[2019-03-13] MEDS ORDERED: RX EYE DROP OU (10:06)
[2019-03-13] MEDS ORDERED: APIX5TAB PO (10:06)
--- NOTE | 2019-03-13 10:09 | CONSULTATION REPORT ---
DATE OF SERVICE: 03/13/2019 ATTENDING PHYSICIAN: Dr. Horn. SUMMARY: A 78-year-old white lady with history of uterine cancer and apparently a pelvic recurrence and a left ureteral obstruction. She has been complaining of lower quadrant pain. No flank pain. I reviewed her CAT scan and her labs. Her abdomen is soft. There is no CVA tenderness. 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 PLAN: I had a lengthy discussion with the patient on her options. We will attempt to put a stent on her tomorrow cystoscopically. I fully explained the procedure to her. She is pressing on the fact that I may not be able to put the stent and the obstruction is significant and further need for kidney drainage by percutaneous nephrostomy. Also, I told her that this may not relieve her pain if it is not related to the ureteral obstruction. I also told her about the side effects of stents including pain and discomfort as well as urgency and frequency. I explained to him the procedure of tomorrow. All her questions were answered. Job ID: [id number] DocumentID: [id number] Dictated Date: 03/13/2019 09:34:29 Pipelines Superintendent Date: 03/13/2019 10:08:41 Dictated By: GERALD DUBOIS MD
[2019-03-13] MEDS ORDERED: OLME40TA18 PO (10:12)
[2019-03-13] MEDS ORDERED: AMLO10TA7 PO (10:12)
[2019-03-13] MEDS ORDERED: DILT-27 PO (10:12)
[2019-03-13] MEDS ORDERED: POLY17PO6 PO (11:31)
--- NOTE | 2019-03-13 11:34 | NUR ---
WENT OVER THE EXT MED HX WITH THE PATIENT AND SHE VERIFIED HOW SHE TAKES THEM TO THE BEST OF HER ABILITY. SHE STATES DR. LEDESMA RECENTLY STOPPED A BLOOD PRESSURE MEDICATION BUT SHE IS NOT SURE WHICH ONE. I CALLED AND LEFT A MESSAGE FOR CLARIFICATION WITH DR. LEDESMA'S OFFICE, THEY FAXED ME A MEDICATION LIST BACK IN RESPONSE AND OF THE RECENTLY FILLED MEDICATIONS ON THE EXT MED HX OLMESARTAN 40MG #30 WAS FILLED 02-14-19 HOWEVER IT WAS NOT ON THAT LIST SO I REMOVED IT FROM THE MED REC AT THIS TIME. THE PATIENT FILLED GLYBURIDE 5MG 1/2 TAB BID #45 03-07-19 HOWEVER SHE STATES SHE ONLY TAKES 1/2 TAB DAILY IN THE MORNING ONLY. PRIOR TO THIS FILL DATE IT LOOKS THOUGH IT WAS 1/2 TAB DAILY. SHE STATES SHE DID NOT DISCUSS A DOSE HUNTLEY WITH DR. LEDESMA THAT SHE REMEMBERS AND HAS BEEN TAKING IT THE SAME ALWAYS. I LEFT IT ON THE MED REC 1/2 TAB DAILY AT THIS TIME. SHE FILLED BISACODYL SUPPOSITORIES DAILY 03-07-19, SHE STATES SHE HAS BEEN DOING IT TWICE DAILY AND STILL HAVING TROUBLE. SHE STATES THE POTASSIUM LIQUID HAS BEEN STOPPED BECAUSE HER NUMBERS LOOKED GOOD. SHE STATES SHE IS NO LONGER USING THE DUONEB NEBULIZER SOLUTION AT HOME. SHE FILLED KETOCONAZOLE SHAMPOO 01-05-19 AND STATES SHE NOW USES IT ABOUT 3 TIMES A WEEK, SHE STATES SHE WILL USE IT UNTIL IT IS GONE. SHE IS NO LONGER USING THE CLOBETASOL SOLUTION. SINCE STOPPING CHEMO SOME OF THESE ISSUES HAVE RESOLVED. SHE WAS USING LATANOPROST EYE DROPS HOWEVER SHE STATES THEY HAVE BEEN STOPPED AND A NEW EYE DROP WAS ORDERED THAT HAD TO BE SENT BY MAIL FROM [place]. SHE IS TO USE THAT NEW EYE DROP FOUR TIMES DAILY UNTIL SHE STARTS RECEIVING EYE INJECTIONS. HER IS BRINGING IN THAT EYE DROP BUT SHE DOES NOT KNOW THE NAME OF IT SINCE IT JUST ARRIVED AT HER HOUSE YESTERDAY. SHE TAKES A MTV DAILY, FISH OIL, PROBIOTIC, AND VITAMIN D OTC. ALSO ON THE LIST FROM DR. LEDESMA'S OFFICE WAS MIRALAX DAILY, I ADDED IT TO THE MED REC AT THIS TIME.
[2019-03-13] MEDS ORDERED: LACTATED RINGERS 1,000 ML IV PRN (11:42)
[2019-03-13 12:00] VITALS: BP 114/71
--- NOTE | 2019-03-13 12:19 | NUR ---
PALLIATIVE CARE RN consult received by Dr. Bowden to help with goals of care discussion. Patient was laying down upon arrival and reported being tired. She asked what the purpose of my visit was and I told her I was here to discuss goals of care at the request of Dr. Horn. Patient asked that I make Dr. Horn aware of her appointment in [place] for Wednesday at 3:[address] Chung. Assisted her with getting up to restroom which she did on own x the IV pump.
--- NOTE | 2019-03-13 13:14 | NUR ---
Pt states she is having a procedure early tomorrow for a tumor pressing upon her bladder: states she is having a stent put in. Offered active listening as pt shared that she was diagnosed with cancer 2 years ago. Pt Buddhism and would like a record filing clerk to offer her communion and a blessing before her procedure. She lives in [place] and attends the [employer] there. This major assembler contacted [facility] per pt's request.
[2019-03-13 16:00] VITALS: BP 108/57
[2019-03-13 19:20] VITALS: BP 138/65
[2019-03-13] MEDS ORDERED: PATIENT MAY USE OWN MED,SINGLE MED OP SCH (21:00)
[2019-03-13] MEDS: VANCOMYCIN 25 MG/ML OP SCH (21:36)
[2019-03-14] VITALS (16 sets, daily range): BP systolic 121–146; BP diastolic 58–80
[2019-03-14] MEDS: NS IV 1000 ML 1,000 ML IV SCH (01:44)
[2019-03-14] MEDS: fentaNYL INJECTION 100 MCG/2 ML AMP IVP PRN ×2 (01:44→07:05)
[2019-03-14] MEDS: MEROPENEM 500 MG/SWFI 10 ML IV PUSH IV SCH ×4 (03:54→09:55)
[2019-03-14 05:38] LABS: BASOPHILS % (AUTO) 0 % (0-10); EOSINOPHILS # (AUTO) 0.3 10^3/uL (0.0-0.3); EOSINOPHILS % (AUTO) 4 % (0-10); HEMATOCRIT 31 % (35-52); HEMOGLOBIN 10.4 G/DL (11.5-16.0); LYMPHOCYTES # (AUTO) 1.1 X 10^3 (1.0-4.0); LYMPHOCYTES % (AUTO) 14 % (12-44); MEAN CORPUSCULAR HEMOGLOBIN 31 PG (25-34); MEAN CORPUSCULAR HGB CONC 33 G/DL (32-36); MEAN CORPUSCULAR VOLUME 92 FL (80-99); MEAN PLATELET VOLUME 9.8 FL (7.4-10.4); MONOCYTES # (AUTO) 0.8 X 10^3 (0.0-1.0); MONOCYTES % (AUTO) 10 % (0-12); NEUTROPHILS # (AUTO) 5.9 X 10^3 (1.8-7.8); NEUTROPHILS % (AUTO) 72 % (42-75); PLATELET COUNT 271 10^3/uL (130-400); RED CELL DISTRIBUTION WIDTH 13.6 % (10.0-14.5); WHITE BLOOD COUNT 8.2 10^3/uL (4.3-11.0)
[2019-03-14 06:02] LABS: ALBUMIN 3.2 GM/DL (3.2-4.5); BILIRUBIN,TOTAL 0.3 MG/DL (0.1-1.0); CALCIUM 8.9 MG/DL (8.5-10.1); CREATININE SERUM 0.9 MG/DL (0.60-1.30); POTASSIUM 4.1 MMOL/L (3.6-5.0); TOTAL PROTEIN 5.4 GM/DL (6.4-8.2)
[2019-03-14] MEDS ORDERED: proPOfol 200 MG/20 ML (DIPRIVAN) VIAL IV ONE (06:48)
[2019-03-14] MEDS ORDERED: ONDANSETRON 4 MG/2 ML (SDV) Z0FRAN ONE (06:48)
[2019-03-14] MEDS ORDERED: fentaNYL INJECTION 100 MCG/2 ML AMP ONE (06:48)
[2019-03-14] MEDS ORDERED: MIDAZOLAM 2 MG/2 ML (VERSED) VIAL ONE (06:49)
[2019-03-14] MEDS ORDERED: LIDOCAINE PF 2% 5 ML (XYLOCAINE) VIAL ONE (06:53)
[2019-03-14] MEDS: inSUlin ASPART (NovoLOG) 1 UNIT/0.01 ML (CHARGE PER UNIT) SC SCH ×4 (06:55→21:02)
[2019-03-14] MEDS: glyBURIDE 2.5 MG (MICRONASE) TAB PO SCH (06:55)
[2019-03-14] MEDS: KCL 20 MEQ TAB (K-DUR) PO SCH (06:55)
[2019-03-14] MEDS ORDERED: ROCURONIUM 10 MG/ML 5 ML SYRINGE IV ONE (07:12)
--- NOTE | 2019-03-14 07:40 | NUR ---
PT TAKEN OFF FLOOR VIA PT BED FOR PROCEDURE AT THIS TIME.
--- NOTE | 2019-03-14 08:11 | Progress Note-Pre Operative ---
Pre-Operative Progress Note H&P Reviewed The H&P was reviewed, patient examined and no changes noted. Date Seen by Provider: Mar 14, 2019 Time Seen by Provider: 08:11 Date H&P Reviewed: Mar 14, 2019 Time H&P Reviewed: 08:11 Pre-Operative Diagnosis: LEFT URETERAL OBSTRUCTION GERALD DUBOIS MD Mar 14, 2019 08:11
--- NOTE | 2019-03-14 08:14 | Progress Note-Post Operative ---
Post-Operative Progess Note Surgeon (s)/Lead Caregiver (s) Surgeon GERALD DUBOIS MD Lead Caregiver: NONE Pre-Operative Diagnosis LEFT URETERAL OBSTRUCTION Post-Operative Diagnosis SAME Procedure & Operative Findings Date of Procedure 03/14/19 Procedure Performed/Findings CYSTOSCOPY AND INSERTION OF LT URETERAL STENT Anesthesia Type GENERAL Estimated Blood Loss Estimated blood loss (mL): NONE Specimens/Packing Specimens Removed NONE Packing: NONE GERALD DUBOIS MD Mar 14, 2019 08:14
[2019-03-14] MEDS ORDERED: NEOSTIGMINE 1 MG/ML 5 ML SYRINGE ONE (08:33)
[2019-03-14] MEDS ORDERED: GLYCOPYRROLATE 0.2 MG/ML (ROBINUL) 2 ML VIAL ONE (08:33)
[2019-03-14] MEDS ORDERED: SEVOFLURANE (ULTANE) 15 ML INHAL SOLN ONE (08:34)
[2019-03-14] MEDS ORDERED: ONDANSETRON 4 MG/2 ML (SDV) Z0FRAN IVP PRN (09:00)
[2019-03-14] MEDS: SENNA W/DOCUSATE (SENOKOT S) TABLET PO SCH ×2 (09:00→21:02)
[2019-03-14] MEDS: LACTULOSE SYRUP 10GM/15ML (ENULOSE) 30ML UDC PO SCH ×2 (09:00→21:02)
[2019-03-14] MEDS: BISACODYL 10 MG SUPP (DULCOLAX) PR SCH ×2 (09:00→21:02)
[2019-03-14] MEDS ORDERED: morphine INJ 10 MG/ML 1ML (SYR OR VIAL) IVP ONE (09:00)
[2019-03-14] MEDS: POLYETHYLENE GLYCOL 17 GM (MIRALAX) PACK PO SCH ×2 (09:00→21:02)
[2019-03-14] MEDS: amLODIPine 5 MG (NORVASC) TAB PO SCH (09:56)
[2019-03-14] MEDS: DILTIAZEM 120 MG (CARDIZEM CD) CAP PO SCH (09:56)
[2019-03-14] MEDS: ALLOPURINOL 100 MG (ZYLOPRIM) TAB PO SCH (09:56)
[2019-03-14] MEDS: DOCUSATE SODIUM 100 MG (COLACE) CAP PO SCH ×2 (09:56→21:02)
[2019-03-14] MEDS: VANCOMYCIN 25 MG/ML OP SCH ×4 (10:11→22:09)
--- NOTE | 2019-03-14 10:39 | NUR ---
PALLIATIVE CARE RN visited the patient just after she returned from her cystoscopy w stent placement. She is groggy. Will visit later in the day.
--- NOTE | 2019-03-14 10:41 | NUR ---
Late ENTRY from 03/13/2019. This RN spent an hour with the patient discussing her life including travels and authored book. She is a very interesting lady who is not ready to but also not afraid. She sorta talked i circles saying she wishes she had not had chemo and radiation while contemplating continuing treatment with new 2nd/3rd opinion with Dr. Chung in [place]. She avoids the discussion regarding hospice and already a DNR. Will continue to follow and offer support for her.
--- NOTE | 2019-03-14 14:24 | OPERATIVE REPORT ---
DATE OF SERVICE: 03/14/2019 PREOPERATIVE DIAGNOSIS: Left ureteral obstruction. POSTOPERATIVE DIAGNOSIS: Left ureteral obstruction. OPERATION PERFORMED: Cystoscopy and insertion of left ureteral stent. SURGEON: Matias Dubois MD ANESTHESIA: General. COMPLICATIONS: None. DESCRIPTION OF PROCEDURE: Under satisfactory general anesthesia with the patient in lithotomy position, genitalia were prepped and draped in the usual sterile fashion. The cystoscope was introduced into the bladder, which was examined with both lenses and was negative except for sluggish efflux on the left side. Using the foroblique lens, I passed a 6-Upper Sorbian 26 cm double-J stent. I met some resistance at the junction of the proximal and mid ureter, pulled the wire back a little bit to produce a curve to the ureter and I was able to bypass the obstruction all the way to the renal pelvis. The guidewire was removed and the stent was seen draining nicely and proximally fluoroscopically and distally endoscopically. There was clear urine coming out from the stent holes. I did not want to inject contrast because of fear of spreading infections. The bladder was evacuated and the cystoscope was removed. The patient tolerated the procedure and anesthesia well and was sent to recovery room in stable condition. PLAN: We will see if that helps her symptoms of pain, which was explained to her and her relative preoperatively. Job ID: [id number] DocumentID: [id number] Dictated Date: 03/14/2019 08:45:27 Charger Operator Date: 03/14/2019 14:24:32 Dictated By: MATIAS DUBOIS MD
--- NOTE | 2019-03-14 14:28 | Physical Therapy Progress Note ---
Therapy Progress Note Patient adamantly declined PT this p.m. due to her throat hurting from a procedure. PT will attempt in a.m. 1 ref JOSÉ MIGUEL QUIROGA PT Mar 14, 2019 14:28
[2019-03-14] MEDS: HYDROcodone/APAP 5 MG/325 MG (LORTAB) TAB PO PRN (14:41)
--- NOTE | 2019-03-14 14:54 | Progress Note-Hospitalist ---
Subjective HPI/CC On Admission Date Seen by Provider: Mar 14, 2019 Time Seen by Provider: 09:30 CC: Abdominal pain HPI: This is a 78-year-old white female clinic patient of mine with a history of uterine cancer status post hysterectomy at [facility] 3 years ago who had a recent recurrence obtaining most of her care at [facility] who I took care of for 12 days at [facility] on swing bed status after pneumonia and diverticulitis who is deemed a nonsurgical candidate from and [facility] who presented to the ER with abdominal pain. She is known to have the tumor pressing on the left ureter and the left sigmoid colon causing outflow urinary flow obstruction in addition to obstruction of the sigmoid colon causing constipation. She is placed on meropenem considering high risk for ESBL and I have asked all of his care to visit with her since she's been told by 2 separate facilities that she meets hospice. She has an appointment to see Dr. Chung this Wednesday at [facility] visiting physician clinic. Urology will placed stent in the obstructed left ureter to cristobal and we will continue working on the constipation with soapsuds enema if needed to completely evacuate the bowels. Reviewed labs and CT scan. Subjective/Events-last exam Pt had a good night Spoke with Dr. Thornton urology who placed a stent in the blocked left ureter due to tumor mass I did speak to Dr. Chung out of [facility] who she has an appt to see at 2:45 tomorrow and updated him on the entire case Will plan on discharge tomorrow morning in time for appt with Dr. Chung Kidney function good so we will hep-lock IV fluid Will continue bowel regimen to obtain complete evacuation Will order PT and OT to get out of bed and ambulate today Able to urinate and no hematuria since stent was placed UCx multiple bacteria so contaminated BCx Clostridium so will place on Amoxil after IV went bad and DC Meropenem Review of Systems General: Fatigue Focused Exam Lactate Level 03/12/19 15:54: Lactic Acid Level 1.11 Objective Exam Vital Signs Vital Signs Date Time Temp Pulse Resp B/P (MAP) Pulse Ox O2 Delivery O2 Flow Rate FiO2 03/14/19 19:21 99.0 73 20 121/71 (88) 98 Room Air 03/14/19 09:10 3 Capillary Refill : Less Than 3 SecondsLess Than 3 Seconds General Appearance: No Apparent Distress, WD/WN, Chronically ill, Obese HEENT: PERRL/EOMI, Normal ENT Inspection, Pharynx Normal, Moist Mucous Membranes Neck: Full Range of Motion, Normal Inspection, Non Tender Respiratory: Chest Non Tender, Lungs Clear, Normal Breath Sounds, No Accessory Muscle Use, No Respiratory Distress Cardiovascular: Regular Rate, Rhythm, No Edema, No Gallop, No JVD, No Murmur, Normal Peripheral Pulses Gastrointestinal: Normal Bowel Sounds, No Organomegaly, No Pulsatile Mass, Soft Back: Normal Inspection, No CVA Tenderness, No Vertebral Tenderness Extremity: Normal Capillary Refill, Normal Inspection, Normal Range of Motion, Non Tender, No Calf Tenderness, No Pedal Edema Neurologic/Psychiatric: Alert, Oriented x3, No Motor/Sensory Deficits, Normal Mood/Affect Skin: Normal Color, Warm/Dry Lymphatic: No Adenopathy Results/Procedures Lab Laboratory Tests 03/14/19 05:00 Patient resulted labs reviewed. Assessment/Plan Assessment and Plan Assess & Plan/Chief Complaint Assessment: Severe abdominal pain from tumor Obstructed left ureter from tumor s/p stent placed UTI high risk for ESBL on Meropenem until UCx is completed now it reveals multiple normal jessy so no need for treatment Clostridium on BCx Covered with Meropenem and placed on PO Amoxil DM HTN HLP AF Gout Neuropathy PE 3 months ago on OAC Plan: Abx Stent placed Dr Thornton appreciated Bowel evacuation Diagnosis/Problems Diagnosis/Problems (1) Ureteral obstruction, left Status: Acute (2) Pseudoobstruction of colon Status: Acute (3) Renal insufficiency Status: Acute (4) Abdominal pain Status: Acute Qualifiers: Abdominal location: unspecified location Qualified Codes: R10.9 - Unspecified abdominal pain (5) Nausea Status: Acute (6) Pelvic mass Status: Chronic (7) Urinary tract infection Status: Acute Qualifiers: Urinary tract infection type: site unspecified Hematuria presence: with hematuria Qualified Codes: N39.0 - Urinary tract infection, site not speci fied; R31.9 - Hematuria, unspecified (8) Uterine cancer Status: Chronic Qualifiers: Malignant neoplasm of body of uterus location: unspecified location (9) Gout Status: Chronic Qualifiers: Gout site: unspecified site Gout etiology: unspecified cause Chronicity: unspecified Qualified Codes: M10.9 - Gout, unspecified (10) Diabetes mellitus Status: Chronic Qualifiers: Diabetes mellitus type: type 2 Diabetes mellitus car shifter insulin use: without jail use Diabetes mellitus complication status: with other specified complication Qualified Codes: E11.69 - Type 2 diabetes mellitus with other specified complication (11) Pulmonary embolism Status: Chronic Qualifiers: Pulmonary embolism type: other Chronicity: chronic Acute cor pulmonale presence: without acute cor pulmonale Qualified Codes: I27.82 - Chronic pulmonary embolism (12) Leukocytosis Status: Acute Qualifiers: Leukocytosis type: leukemoid reaction Qualified Codes: D72.823 - Leukemoid reaction (13) Anemia Status: Chronic Qualifiers: Anemia type: unspecified type Qualified Codes: D64.9 - Anemia, unspecified (14) Clostridium perfringens infection Status: Acute (15) S/P ureteral stent placement Status: Acute Clinical Quality Measures DVT/VTE Risk/Contraindication: Risk Factor Score Per Nursin RFS Level Per Nursing on Admit: 3=High VELASQUEZ LEDESMA DO Mar 14, 2019 14:54
--- NOTE | 2019-03-14 15:05 | Occ Therapy Progress Note ---
Therapy Progress Note Per PT. Patient declined both OT/PT. OT will attempt next day of services DAINA BLEVINS OT Mar 14, 2019 15:05
--- NOTE | 2019-03-14 17:45 | NUR ---
DR LEDESMA GAVE ORDERS TO LEAVE OUT IV. WILL SWITCH TO PO ANTIBIOTICS PLACED IN ORDERS. PT NOTIFIED OF PLAN OF CARE.
[2019-03-14] MEDS: AMOXICILLIN 500 MG (POLYMOX) CAP PO SCH (21:01)
[2019-03-14] MEDS: APIXABAN 5 MG (ELIQUIS) TABLET PO SCH (21:01)
[2019-03-14] MEDS: meTOproloL SUCCINATE 50 MG (TOPROL XL) TAB PO SCH (21:01)
[2019-03-15 04:00] VITALS: BP 129/75
[2019-03-15 06:12] LABS: BASOPHILS % (AUTO) 0 % (0-10); EOSINOPHILS # (AUTO) 0.3 10^3/uL (0.0-0.3); EOSINOPHILS % (AUTO) 4 % (0-10); HEMATOCRIT 32 % (35-52); HEMOGLOBIN 10.8 G/DL (11.5-16.0); LYMPHOCYTES # (AUTO) 1.2 X 10^3 (1.0-4.0); LYMPHOCYTES % (AUTO) 16 % (12-44); MEAN CORPUSCULAR HEMOGLOBIN 31 PG (25-34); MEAN CORPUSCULAR HGB CONC 33 G/DL (32-36); MEAN CORPUSCULAR VOLUME 92 FL (80-99); MEAN PLATELET VOLUME 9.3 FL (7.4-10.4); MONOCYTES # (AUTO) 0.6 X 10^3 (0.0-1.0); MONOCYTES % (AUTO) 8 % (0-12); NEUTROPHILS # (AUTO) 5.5 X 10^3 (1.8-7.8); NEUTROPHILS % (AUTO) 72 % (42-75); PLATELET COUNT 312 10^3/uL (130-400); WHITE BLOOD COUNT 7.6 10^3/uL (4.3-11.0)
[2019-03-15 06:27] LABS: ALANINE AMINOTRANSFERASE 18 U/L (0-55); ALBUMIN 3.3 GM/DL (3.2-4.5); ALKALINE PHOSPHATASE 80 U/L (40-136); BILIRUBIN,TOTAL 0.3 MG/DL (0.1-1.0); BUN/CREATININE RATIO 15; CALCIUM 9.2 MG/DL (8.5-10.1); CARBON DIOXIDE 21 MMOL/L (21-32); CHLORIDE 105 MMOL/L (98-107); CREATININE SERUM 0.75 MG/DL (0.60-1.30); GFR ESTIMATED > 60; GLUCOSE 134 MG/DL (70-105); SODIUM 136 MMOL/L (135-145); TOTAL PROTEIN 5.6 GM/DL (6.4-8.2)
[2019-03-15] MEDS: ACETAMINOPHEN 500 MG TAB (TYLENOL) PO PRN ×2 (06:49→13:00)
[2019-03-15] MEDS: KCL 20 MEQ TAB (K-DUR) PO SCH (06:49)
[2019-03-15] MEDS: inSUlin ASPART (NovoLOG) 1 UNIT/0.01 ML (CHARGE PER UNIT) SC SCH ×2 (06:50→12:00)
[2019-03-15] MEDS ORDERED: glyBURIDE 2.5 MG (MICRONASE) TAB PO SCH (07:00)
--- NOTE | 2019-03-15 07:58 | Anesthesia-General Post-Op ---
General Patient Condition Mental Status/LOC: Same as Preop Cardiovascular: Satisfactory Nausea/Vomiting: Absent Respiratory: Satisfactory Pain: Controlled Complications: Absent Post Op Complications Complications None Follow Up Care/Instructions Patient Instructions None needed. Anesthesia/Patient Condition Patient Condition Patient is doing well, no complaints, stable vital signs, no apparent adverse anesthesia problems. No complications reported per nursing. ISIAH RUBIN CRNA Mar 15, 2019 07:58
[2019-03-15 08:00] VITALS: BP 129/72
--- NOTE | 2019-03-15 09:14 | Progress Note-Urology ---
Progress Note-Urology Progress Notes/Assess & Plan Progress/Assessment & Plan RECOVERED WELL FROM YESTERDAY PROCEDURE. SAYS PAIN IS BETTER. HAPPY Final Diagnosis LT URETERAL OBSTRUCTION GERALD DUBOIS MD Mar 15, 2019 09:14
--- NOTE | 2019-03-15 09:40 | Physical Therapy Evaluation ---
PT Evaluation-General Medical Diagnosis Admission Date Mar 12, 2019 at 17:19 Medical Diagnosis: UTI/urethral obstruction Onset Date: Mar 12, 2019 Therapy Diagnosis Therapy Diagnosis: impaired mobility, strength, endurance Height/Weight Height (Feet): 5 Height (Inches): 6.00 Weight (Pounds): 214 Weight (Ounces): 0.0 Precautions Precautions/Isolations: Fall Prevention, Standard Precautions Referral Physician: Jeannette Horn DO Reason for Referral: Evaluation/Treatment Medical History Pertinent Medical History: DM, HTN, Macular Degenertion Additional Medical History Past Medical History Surgeries: Appendectomy, Hysterectomy, Oophorectomy, Orthopedic Respiratory: Pulmonary Embolism Cardiac: Atrial Fibrillation, Chronic Edema/Swelling, High Cholesterol, Hypertension Neurological: Neuropathy Reproductive: Yes (UTERINE CANCER) Hysterectomy, Menopausal Genitourinary: Kidney Infection, Bladder Infection, Kidney Stones Gastrointestinal: Obstructive Bowel, Chronic Constipation Musculoskeletal: Degenerate Disk Disease, Arthritis, Chronic Back Pain, Gout Endocrine: Diabetes, Non-Insulin dep HEENT: Macular Degeneration Cancer: Uterine Did You Recieve Any Treatments: Yes What Type of Treatment Did You: Chemotherapy, Surgical Intervention History of Blood Disorders: No Reviewed History: Yes Social History Home: Single Level Current Living Status: Spouse Entry Into Home: Ramp has had a stroke previously and patient takes care of him at home. Prior/Core FIM Prior Level of Function Therapy Code Descriptions/Definitions Functional Ross Measure: 0=Not Assessed/NA 4=Minimal Assistance 1=Total Assistance 5=Supervision or Setup 2=Maximal Assistance 6=Modified Ross 3=Moderate Assistance 7=Complete Ross Therapy Quality Codes: 6 Independent with activity with or without an assistive device 5 Patient requires set up or clean up by helper. Patient completes activity by themselves 4 Supervision or touching assist (CGA). [place] provide cues , steadying assist 3 The helper provides less than half the effort to complete the activity 2 The helper provides more than half the effort to complete the activity 1 Dependent. The helper does all the effort to complete an activity 7 Patient refused to complete or attempt activity 9 The patient did not perform the activity before the current illness or injury 88 Not attempted due to Medical conditions or safety concerns Functional Abilities and Goals: Independent: Patient completed the activities by him/herself, with or without an assistive device, with no assistance from a helper. Needed Some Help: Patient needed partial assistance from another person to complete activities. Dependent: A helper completed the activities for the patient. Unknown: Not Applicable: Bed Mobility: 6 Transfers (B,C,W/C) (FIM): 6 Gait: 6 Indoor Mobility (Ambulation): Independent Patient uses a SPC PT Evaluation-Current Subjective Patient in bed pre tx, agrees to PT, has no complaints of pain. Pt/Family Goals to be independent at home Objective Patient Orientation: Person, Place, Situation ROM/Strength ROM Lower Extremities WNL Strength Lower Extremities RLE (hip flexion 3/5, knee flexion 3/5, knee extension 4/5, dorsiflexion 4+/5), LLE (hip flexion 3/5, knee flexion 3/5, knee extension 3+/5, dorsiflexion 4+/5) Neuromuscular (Tone, Coordination, Reflexes) NT Sensory Hearing: Functional Sensation Right Lower Extremit: Impaired Sensation Left Lower Extremity: Impaired Sensation Lower Extremities Patient has impaired light touch sensation in both feet. Transfers Therapy Code Descriptions/Definitions Functional Ross Measure: 0=Not Assessed/NA 4=Minimal Assistance 1=Total Assistance 5=Supervision or Setup 2=Maximal Assistance 6=Modified Ross 3=Moderate Assistance 7=Complete Ross Transfers (B, C, W/C) (FIM): 6 Scootin Rollin Supine to/from Sit: 6 Sit to/from Stand: 5 Gait Mode of Locomotion: Walk Anticipated Mode of Locomotion: Walk Gait (FIM): 5 Distance: 50' Gait Level of Assist: 5 Gait Persons Needed: 1 Gait Assistive Device: None Comments/Gait Description SBA, patient hold onto furniture or rail along wall when ambulating. Balance Sitting Static: Normal Sitting Dynamic: Normal Standing Static: Good Standing Dynamic: Good Treatment seated BLE exercises x15 (AP, LAQ) Assessment/Needs Patient has impaired mobility, strength, endurance. She states she has an appo intment in [place] later today, nurse notified. Rehab Potential: Fair PT Short Term Goals Short Term Goals Time Frame: Mar 22, 2019 Transfers (B,C,W/C) (FIM): 6 Gait (FIM): 6 Gait Distance Comment: 150' Gait Level of Assist: 6 (6) Gait Assistive Device: Cane Single Point PT Plan Problem List Problem List: Activity Tolerance, Functional Strength, Safety, Balance, Gait, Transfer Treatment/Plan Treatment Plan: Continue Plan of Care Treatment Plan: Education, Functional Activity Keith, Functional Strength, Gait, Safety, Therapeutic Exercise, Transfers Treatment Duration: Mar 22, 2019 Frequency: 6 times per week Estimated Hrs Per Day: .25 hour per day (15-30') Patient and/or Family Agrees t: Yes Safety Risks/Education Patient Education: Gait Training, Transfer Techniques, Correct Positioning, Safety Issues Teaching Recipient: Patient Teaching Methods: Demonstration, Discussion Response to Teaching: Reinforcement Needed Discharge Recommendations Plan Patient will perform bed mobility and transfer training, balance and endurance training, functional strengthening, stair training, gait training, and education, to improve functional mobility and independence at home. Therapy D/C Recommendations: Home w/ Family Support Time/GCodes Time In: 915 Time Out: 929 Total Billed Treatment Time: 14 Total Billed Treatment 1 visit KILEY CLARK PT Mar 15, 2019 09:40
[2019-03-15] MEDS: VANCOMYCIN 25 MG/ML OP SCH ×2 (09:54→13:02)
[2019-03-15] MEDS: DILTIAZEM 120 MG (CARDIZEM CD) CAP PO SCH (09:54)
[2019-03-15] MEDS: ALLOPURINOL 100 MG (ZYLOPRIM) TAB PO SCH (09:54)
[2019-03-15] MEDS: APIXABAN 5 MG (ELIQUIS) TABLET PO SCH (09:54)
[2019-03-15] MEDS: AMOXICILLIN 500 MG (POLYMOX) CAP PO SCH ×2 (09:54→13:03)
[2019-03-15] MEDS: amLODIPine 5 MG (NORVASC) TAB PO SCH (09:55)
[2019-03-15] MEDS: LACTULOSE SYRUP 10GM/15ML (ENULOSE) 30ML UDC PO SCH (09:55)
[2019-03-15] MEDS: POLYETHYLENE GLYCOL 17 GM (MIRALAX) PACK PO SCH (09:55)
[2019-03-15] MEDS: DOCUSATE SODIUM 100 MG (COLACE) CAP PO SCH (09:55)
[2019-03-15] MEDS: SENNA W/DOCUSATE (SENOKOT S) TABLET PO SCH (09:56)
[2019-03-15] MEDS: BISACODYL 10 MG SUPP (DULCOLAX) PR SCH (09:56)
[2019-03-15] MEDS ORDERED: LACT20SO2 PO (10:37)
[2019-03-15] MEDS ORDERED: AMOX500C2 PO (10:37)
[2019-03-15] MEDS ORDERED: GLYB2.5T4 PO (10:37)
[2019-03-15] MEDS ORDERED: AMLO5TAB9 PO (10:37)
--- NOTE | 2019-03-15 10:39 | Discharge Summary-Hospitalist ---
Diagnosis/Chief Complaint Date of Admission Mar 12, 2019 at 17:19 Date of Discharge Discharge Date: Mar 15, 2019 Admission Diagnosis Assessment: Severe abdominal pain from tumor Obstructed left ureter from tumor UTI high risk for ESBL on Meropenem until UCx is completed Clostridium on BCx? Covered with Meropenem in meantime DM HTN HLP AF Gout Neuropathy PE 3 months ago on OAC Plan: Abx Stent tomorrow Bowel evacuation Discharge Diagnosis (1) Ureteral obstruction, left Status: Acute (2) Pseudoobstruction of colon Status: Acute (3) Renal insufficiency Status: Acute (4) Abdominal pain Status: Acute (5) Nausea Status: Acute (6) Pelvic mass Status: Chronic (7) Urinary tract infection Status: Acute (8) Uterine cancer Status: Chronic (9) Gout Status: Chronic (10) Diabetes mellitus Status: Chronic (11) Pulmonary embolism Status: Chronic (12) Leukocytosis Status: Acute (13) Anemia Status: Chronic (14) Clostridium perfringens infection Status: Acute (15) S/P ureteral stent placement Status: Acute Discharge Summary Discharge Physical Exam Allergies: Coded Allergies: No Known Drug Allergies (Unverified , 01/04/19) Vitals & I&Os Vital Signs Date Time Temp Pulse Resp B/P (MAP) Pulse Ox O2 Delivery O2 Flow Rate FiO2 03/15/19 13:05 74 20 129/72 96 Room Air 3.00 03/15/19 08:00 98.3 General Appearance: No Apparent Distress, WD/WN, Chronically ill Respiratory: Chest Non Tender, Lungs Clear, Normal Breath Sounds, No Accessory Muscle Use, No Respiratory Distress Cardiovascular: Regular Rate, Rhythm, No Edema, No Gallop, No JVD, No Murmur, Normal Peripheral Pulses Neurologic/Psychiatric: Alert, Oriented x3, No Motor/Sensory Deficits, Normal Mood/Affect Hospital Course Was the Problem List Reviewed?: Yes Hospital course; Pt had an uneventful hospital course she was admitted for abdominal pain and dehydration found to have a mass preventing outflow to the left ureter so Dr. Thornton was consulted he placed ureteral stent in the left without complication pt was maintained on Meropenem due high risk for resistant organisms including ESBL since multiple antibiotics had been placed on board recently and pt overall feels much better less pain and bowels were evacuated after multiple Laxatives given and she was discharged in time to go to oncologist Dr. Naboot and obtain opinion on the uterine cancer with widespread metastasis. I will see her in clinic on Wednesday. Labs (last 24 hrs) Laboratory Tests 03/14/19 20:31: Glucometer 129H 03/15/19 05:50: White Blood Count 7.6, Red Blood Count 3.52L, Hemoglobin 10.8L, Hematocrit 32L, Mean Corpuscular Volume 92, Mean Corpuscular Hemoglobin 31, Mean Corpuscular Hemoglobin Concent 33, Red Cell Distribution Width 14.0, Platelet Count 312, Mean Platelet Volume 9.3, Neutrophils (%) (Auto) 72, Lymphocytes (%) (Auto) 16, Monocytes (%) (Auto) 8, Eosinophils (%) (Auto) 4, Basophils (%) (Auto) 0, Neutrophils # (Auto) 5.5, Lymphocytes # (Auto) 1.2, Monocytes # (Auto) 0.6, E osinophils # (Auto) 0.3, Basophils # (Auto) 0.0, Sodium Level 136, Potassium Level 4.0, Chloride Level 105, Carbon Dioxide Level 21, Anion Gap 10, Blood Urea Nitrogen 11, Creatinine 0.75, Estimat Glomerular Filtration Rate > 60, BUN/Creatinine Ratio 15, Glucose Level 134H, Calcium Level 9.2, Corrected Calcium 9.8, Total Bilirubin 0.3, Aspartate Amino Transf (AST/SGOT) 24, Alanine Aminotransferase (ALT/SGPT) 18, Alkaline Phosphatase 80, Total Protein 5.6L, Albumin 3.3 03/15/19 11:36: Glucometer 123H Microbiology 03/12/19 Blood Culture - Final, Complete Clostridium perfringens 03/13/19 MRSA Screen - Final, Complete MRSA not isolated 03/12/19 Urine Culture - Final, Complete 3 or more isolates Patient resulted labs reviewed. Pending Labs Discussion & Recommendations Discharge Planning: <30 minutes discharge planning Discharge Home Medications: Active Scripts Active Glyburide 2.5 Mg Tablet 1.25 Mg PO DAILY@0700 Lactulose 20 Gm/30 Ml Solution 10 Gm PO BID Amlodipine Besylate 5 Mg Tablet 5 Mg PO DAILY Amoxicillin 500 Mg Capsule 500 Mg PO TID Reported Miralax (Polyethylene Glycol 3350) 17 Gm Powd.pack 17 Gm PO DAILY Diltiazem 24Hr ER (Diltiazem HCl) 120 Mg Cap.er.24h 120 Mg PO DAILY Hydrocodon-Acetaminophn 10-325 (Hydrocodone/Acetaminophen) 1 Each Tablet 1 Tab PO Q6H PRN [Rx Eye Drop] 1 Drop OU QID Probiotic (L.acidoph & Paracasei,B.lactis) 1 Each Capsule 1 Cap PO DAILY Magnesium Oxide 400 Mg Tablet 400 Mg PO DAILY Senna Lax (Sennosides) 8.6 Mg Tablet 2 Tab PO BID Biscolax (Bisacodyl) 10 Mg Supp.rect 10 Mg RC BID PRN Eliquis (Apixaban) 5 Mg Tablet 5 Mg PO BID Raleigh-3 (Raleigh-3 Fatty Acids) 1,000 Mg Capsule 2,000 Mg PO DAILY Flintstones Complete (Pediatric Multivit Comb No.76) 1 Each Tab.chew 1 Tab.chew PO DAILY Vitamin D3 (Cholecalciferol (Vitamin D3)) 1,000 Unit Capsule 1,000 Unit PO DAILY Ketoconazole 120 Ml Shampoo TOP MOWEFR Metoprolol Succinate 50 Mg Tab.er.24h 50 Mg PO HS Allopurinol 100 Mg Tablet 100 Mg PO DAILY Instructions to patient/family Please see electronic discharge instructions given to patient. Clinical Quality Measures DVT/VTE Risk/Contraindication: Risk Factor Score Per Nursin RFS Level Per Nursing on Admit: 3=High Problem Qualifiers (1) Abdominal pain: Abdominal location: unspecified location Qualified Codes: R10.9 - Unspecified abdominal pain (2) Urinary tract infection: Urinary tract infection type: site unspecified Hematuria presence: with hematuria Qualified Codes: N39.0 - Urinary tract infection, site not specified; R31.9 - Hematuria, unspecified (3) Uterine cancer: Malignant neoplasm of body of uterus location: unspecified location (4) Gout: Gout site: unspecified site Gout etiology: unspecified cause Chronicity: unspecified Qualified Codes: M10.9 - Gout, unspecified (5) Diabetes mellitus: Diabetes mellitus type: type 2 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
[2019-03-15 13:05] VITALS: BP 129/72
--- NOTE | 2019-03-15 13:11 | Occupational Therapy Eval ---
OT Evaluation-General/PLF Medical Diagnosis Admission Date Mar 12, 2019 at 17:19 Medical Diagnosis: UTI/urethral obstruction Onset Date: Mar 12, 2019 Therapy Diagnosis Therapy Diagnosis: impaired ADLS and mobility Height/Weight Height (Feet): 5 Height (Inches): 6.00 Weight (Pounds): 214 Weight (Ounces): 0.0 Precautions Precautions/Isolations: Fall Prevention, Standard Precautions Safety Interventions: None Weight Bear Status Weight Bearing Restriction: Weight Bearing/Tolerated Referral Physician: Jeannette Horn DO Referral Reason: Activity Tolerance, Self Care, Evaluation/Treatment, Strengthening/ROM Medical History Pertinent Medical History: DM, HTN, Macular Degenertion Additional Medical History HPI: This is a 78-year-old white [facility] a [facility] of uterine cancer status post hysterectomy at [facility] 3 years ago who had a recent recurrence obtaining most of her care at [facility] who I took care of for 12 days at [facility] on swing bed status after pneumonia and diverticulitis who is deemed a nonsurgical candidate from and [facility] who presented to the ER with abdominal pain. She is known to have the tumor pressing on the left ureter and the left sigmoid colon causing outflow urinary flow obstruction in addition to obstruction of the sigmoid colon causing constipation. She is placed on meropenem considering high risk for ESBL and I have asked all of his care to visit with her since she's bee n told by 2 separate facilities that she meets hospice. She has an appointment to see Dr. Chung this Wednesday at [facility] visiting physician clinic. Urology will placed stent in the obstructed left ureter tomorrow and we will continue working on the constipation with soapsuds enema if needed to completely evacuate the bowels." Reviewed History: Yes Social History Home: Single Level Current Living Status: Spouse Entry Into Home: Ramp ADL-Prior Level of Function Therapy Code Descriptions/Definitions Functional [place] Measure: 0=Not Assessed/NA 4=Minimal Assistance 1=Total Assistance 5=Supervision or Setup 2=Maximal Assistance 6=Modified [place] 3=Moderate Assistance 7=Complete [place] Therapy Quality Codes: 6 Independent with activity with or without an assistive device 5 Patient requires set up or clean up by helper. Patient completes activity by themselves 4 Supervision or touching assist (CGA). [place] provide cues , steadying assist 3 The helper provides less than half the effort to complete the activity 2 The helper provides more than half the effort to complete the activity 1 Dependent. The helper does all the effort to complete an activity 7 Patient refused to complete or attempt activity 9 The patient did not perform the activity before the current illness or injury 88 Not attempted due to Medical conditions or safety concerns Functional Abilities and Goals: Independent: Patient completed the activities by him/herself, with or without an assistive device, with no assistance from a helper. Needed Some Help: Patient needed partial assistance from another person to complete activities. Dependent: A helper completed the activities for the patient. Unknown: Not Applicable: Self Care: Independent Functional Cognition: Independent DME/Equipment: Bath Chair, Grab Bars, Shower Drive Self: Yes OT Current Status Subjective ng EOB upon OT arrival in no apparent distress. pt agreed to OT evaluation session. pt pleasant and cooperative to work with . pt complains of no pain. Pain Numeric Pain Scale: 0-No Pain Mental Status/Objective Patient Orientation: Person, Place, Time, Situation Current Glasses/Contacts: Yes Hearing Aids: No Dentures/Partials: No Hand Dominance: Right Upper Extremity ROM WFL Upper Extremity Coordination WFL Upper Extremity Sensation WFL joselito UE Upper Extremity Strength WFL Joselito UE ADL-Treatment Therapy Code Descriptions/Definitions Functional [place] Measure: 0=Not Assessed/NA 4=Minimal Assistance 1=Total Assistance 5=Supervision or Setup 2=Maximal Assistance 6=Modified [place] 3=Moderate Assistance 7=Complete [place] Therapy Quality Codes: 6 Independent with activity with or without an assistive device 5 Patient requires set up or clean up by helper. Patient completes activity by themselves 4 Supervision or touching assist (CGA). [place] provide cues , steadying assist 3 The helper provides less than half the effort to complete the activity 2 The helper provides more than half the effort to complete the activity 1 Dependent. The helper does all the effort to complete an activity 7 Patient refused to complete or attempt activity 9 The patient did not perform the activity before the current illness or injury 88 Not attempted due to Medical conditions or safety concerns OT Short Term Goals Short Term Goals Transfers (B,C,W/C) (FIM): 6 1=Demonstrate adherence to instructed precautions during ADL tasks. 2=Patient will verbalize/demonstrate understanding of assistive devices/modifications for ADL. 3=Patient will improve strength/tolerance for activity to enable patient to perform ADL's. OT Retirement Goals Vfx Artist Goals 1=Demonstrate adherence to instructed precautions during ADL tasks. 2=Patient will verbalize/demonstrate understanding of assistive devices/modifications for ADL. 3=Patient will improve strength/tolerance for activity to enable patient to perform ADL's. OT Education/Plan Problem List/Assessment Assessment: No Skilled OT Needs ID'd pt demo ability to perform all ADLS (grooming, toileting, LB dressing, dry shower transfers, toilet transfers, and picking items from floor up) independently using no AD. noted good balance throughout session and no safety concerns noted. pt stated she feels "back to normal" and stated no concerns. pt does live with and stated can assist her PRN. pt has house keeper to complete all chores. OT services not indicate secondary to pt functioning at baseline. pt agrees she does not need OT services. d/c OT orders at this time. pt is safe to return home with spouse. Discharge Recommendations Plan/Recommendations: Discharge/Goals Met Therapy D/C Recommendations: Home w/ Family Support Equpiment Recommendations-D/C: None Treatment Plan/Plan of Care Treatment,Training & Education: Yes Patient would benefit from OT for education, treatment and training to promote independence in ADL's, mobility, safety and/or upper extremity function for ADL's. Treatment Duration: Mar 15, 2019 Frequency: 1 time per week (d/c at this time. pt is independent) Estimated Hrs Per Day: Other (OT services not indicated) Agreement: Yes Rehab Potential: Good Time/GCodes Start Time: 09:43 Stop Time: 10:00 Billed Treatment Time EVL 17 minutes DAINA BLEVINS OT Mar 15, 2019 13:11
--- NOTE | 2019-03-15 13:32 | NUR ---
Pt looking forward to discharge home and feeling much better. She plans to keep her oncology appt. today with oncologist in [place]. Her family plans to transport her to her appt and home.
== END 2019-03-15 13:05 | disposition home or self-care (01) | DRG 829 ==
LOC: EDUNIT# 12:28 → ER 12:29 → 4TH 17:19
PROVIDERS: ADMIT Internal Medicine; ATTEND Internal Medicine
PROC: 0T778DZ Dilation of Left Ureter with Intraluminal Device, Via Natural or Artificial Opening Endoscopic (ICD-10-PCS; principal; 2019-03-14 08:11)
DX: C79.89 Secondary malignant neoplasm of other specified sites (principal); N13.6 Pyonephrosis; C79.82 Secondary malignant neoplasm of genital organs; K59.8 Other specified functional intestinal disorders; K59.09 Other constipation; I27.82 Chronic pulmonary embolism; C78.01 Secondary malignant neoplasm of right lung; G89.3 Neoplasm related pain (acute) (chronic); Z66 Do not resuscitate; I10 Essential (primary) hypertension; E11.21 Type 2 diabetes mellitus with diabetic nephropathy; N28.9 Disorder of kidney and ureter, unspecified; R31.9 Hematuria, unspecified; D64.9 Anemia, unspecified; D72.823 Leukemoid reaction; H35.30 Unspecified macular degeneration; M19.91 Primary osteoarthritis, unspecified site; M10.9 Gout, unspecified; M54.9 Dorsalgia, unspecified; R60.9 Edema, unspecified; B96.7 Clostridium perfringens [C. perfringens] as the cause of diseases classified elsewhere; Z79.899 Other long term (current) drug therapy; Z85.42 Personal history of malignant neoplasm of other parts of uterus; Z92.21 Personal history of antineoplastic chemotherapy; Z92.3 Personal history of irradiation; Z79.01 Long term (current) use of anticoagulants
CPT/HCPCS: 36415; 74019; 74177; 80048; 80053; 81000; 82962; 83605; 83690; 85025; 87040; 87081; 87088; 96361; 96365; 96375

== ENCOUNTER → 2020-01-29 | Outpatient (CLI) | payer MEDICARE ==
[~2020-01-29] VITALS: Ht 167 cm; Wt 90.4 kg
[~2020-01-29] MED LIST changes: +ACHYD1T PO; +AMLO10TA7 PO; +AMLO5TAB9 PO; +AMOX500C2 PO; +BEVA25VI IV; +BISA10SU18 RC; +C,E,1CAP PO; +CHOL500049 PO; +CLON0.1T PO; +DILT-27 PO; +DOCU-238 PO; +FLUT9.9S NS; +GLYB2.5T4 PO; -HYDR-3820 PO; +HYDR25TA4 PO; +LACT20SO2 PO; +MAGN400T8 PO; +MELA5CAP PO; -METO-370 PO; +METO50TA7 PO; +OLME1TAB18 PO; +OLME40TA18 PO; +POLY17PO6 PO; +RX EYE DROP OU; +SNN187T PO
== END | disposition home or self-care (01) ==
LOC: PREOP 06:05
PROVIDERS: ATTEND Urology
DX: Z01.818 Encounter for other preprocedural examination (principal)

== ENCOUNTER 2020-02-01 08:10 | Day surgery (SDC) | payer MEDICARE ==
[2020-02-01] VITALS (10 sets, daily range): BP systolic 113–201; BP diastolic 58–103
[~2020-02-01] VITALS: Ht 167 cm; Wt 90.4 kg
--- OUTSIDE RECORDS SUMMARY | 2020-02-01 08:14 | XMS REPORT | Continuity of Care Document ---
Demographics Preferred Language Unknown Marital Status Unknown Muslim Affiliation Unknown Race Unknown Ethnic Group Unknown Author Organization Unknown Address Unknown Phone Unavailable Allergies Active Description Code Type Severity Reaction Onset Reported/Identified Relationship to Patient Clinical Status Yes No known allergies Drug N/A N/A Yes LEVAQUIN UNKNOWN UNKNOWN Yes SULFA (SULFONAMIDE ANTIBIOTICS) MODERATE MODERATE Yes SULFA (SULFONAMIDE ANTIBIOTICS) MODERATE OTHER Yes No Known Drug Allergies [id number] Drug Allergy Unknown N/A 01/29/2020 Medications Medication Packaging Start Date St op Date Route Dosage Sig ACETAMINOPHEN ORAL TABLET 325mg(Tylenol) MG 02/07/2019 03/09/2019 PRN EVERY 6 Hour ACETAMINOPHEN ORAL TABLET 325mg(Tylenol) MG 02/07/2019 03/09/2019 PRN EVERY 6 Hour INSULIN ASPART PEN INJ 100 U NITS/CC (NOVOLOG FLEXPEN) 02/07/2019 03/09/2019 ACHS&0630,1130,1630,2100 Vancomycin-water IV [...] TAB 02/07/2019 03/09/2019 PRN Q6H HYDROCODONE/APAP 5MG/325MG T AB 5 MG/325MG (ALTON-TAB 5/325) TAB 02/07/2019 02/17/2019 PRN Q6H Meropenem-0.9% sodium chlori de IV piggyback 500mg MG 02/07/2019 02/17/2019 Q6H&0000,0600,1200,1800 ALUM/MAG/SIMETH 30CC LIQ (MYLANTA PLUS) cc 02/07/2019 02/17/2019 PRN Q4H GUAIFENESIN - DM LIQ (ROBITUSSIN DM) MLS 02/07/2019 02/14/2019 PRN Q4H IBUPROFEN TAB 400 MG (MOTRIN) MG 02/07/2019 02/14/2019 PRN Q6H BENZONATATE CAP 100 MG (TESSALON) MG 02/07/2019 03/09/2019 PRN TID Docusate sodium 100mg oral capsule (COLACE ) 02/07/2019 03/09/2019 PRN BID GLYBURIDE TAB 5 MG (MICRONASE) MG 02/07/2019 03/09/2019 BID&0800,2000 SENNA CONC/DOCUSATE TAB (SENOKOT S) TAB 02/07/2019 03/09/2019 PRN BID LACTULOSE SYRUP LIQ 20 GM/30 CC (CHRONULAC SYRUP) GM 02/07/2019 03/09/2019 BID&0800,2000 APIXABAN TAB 5 MG (ELIQUIS) MG 02/07/2019 03/09/2019 BID&0800,2000 LATANOPROST OPHTH SOLUTION L IQ 0.005 % (XALATAN) drops 02/07/2019 03/08/2019 QHS&2100 DIPHENHYDRAMINE CAP 25 MG (BENADRYL) MG 02/07/2019 03/09/2019 PRN QHS MELATONIN TAB 3 MG (MELATONIN) MG 02/07/2019 02/13/2019 PRN QHS NORMAL SALINE 500CC IV BAG I NJ 0.9 % (NS 500CC IV BAG) ml 02/07/2019 02/07/2019 ONCE&2146 NORMAL SALINE 1000CC IV BAG INJ 0.9 % (NS 1000CC IV BAG) ml 02/07/2019 02/22/2019 CONTINUOUSEVERY 0 Hour NORMAL SALINE 500CC IV BAG I NJ 0.9 % (NS 500CC IV BAG) ml 02/08/2019 02/08/2019 ONCE&0257 NORMAL SALINE 500CC IV BAG I NJ 0.9 % (NS 500CC IV BAG) ml 02/08/2019 02/23/2019 CONTINUOUSEVERY 0 Hour LACTOBACILLUS BULGARIS TAB (LACTINEX BULGA RIS) tab 02/08/2019 03/09/2019 QAM&0800 Potassium Chloride Powder fo r Oral Soln 20mEQ packet MEQ 02/08/2019 02/14/2019 QAM&0800 MAGNESIUM OXIDE TAB 400 MG (MAG-OX) MG 02/08/2019 03/09/2019 QAM&0800 AMLODIPINE TAB 5 MG (NORVASC) MG 02/08/2019 03/09/2019 QAM&0800 METOPROLOL-XL TAB 50 MG (TOPROL XL) MG 02/08/2019 03/09/2019 QAM&0800 ALLOPURINOL TAB 100 MG (ZYLOPRIM) MG 02/08/2019 03/09/2019 QAM&0800 Scopolamine TD patch 3 day ( TransDerm- Scop patch) PATCH 02/08/2019 02/08/2019 Q72H&0800 POLYETHYLENE GLYCOL POWDER U D PWD (MIRALAX 17GM UNIT DOSE PAKS) Dose(s) 02/08/2019 03/10/2019 PRN QAM NORMAL SALINE 250CC IV BAG I NJ 0.9 % (NS 250CC IV BAG) ml 02/08/2019 02/14/2019 BID&0800,2000 BISACODYL TAB 5 MG (DULCOLAX) MG 02/08/2019 02/14/2019 PRN Daily FUROSEMIDE TAB 20 MG (LASIX) MG 02/08/2019 03/09/2019 Daily&0900 POLYETHYLENE GLYCOL POWDER U D PWD (MIRALAX 17GM UNIT DOSE PAKS) gm 02/08/2019 02/14/2019 Daily&0900 BISACODYL SUPPOS 10 MG (DULCOLAX SUPPOS) MG 02/08/2019 02/14/2019 PRN Daily MILK OF CORDELIA DAYQ ml 02/08/2019 03/09/2019 PRN Daily Tstnniwj-fimc-qhy-folic acid ) tab,CHEWable (Centrum) TAB 02/08/2019 03/09/2019 Daily&0900 Meropenem-0.9% sodium chlori de IV piggyback 500mg MG 02/08/2019 02/18/2019 Q8H&0600,1400,2200 Normal SALINE 0.9 % (NS 100cc) (plain bag) ml 02/08/2019 02/11/2019 CONTINUOUSEVERY 0 Hour NORMAL SALINE 250CC IV BAG I NJ 0.9 % (NS 250CC IV BAG) ml 02/08/2019 02/14/2019 Daily&2000 Diltiazem 120mg,extended release cap (CARD IZEM) 02/08/2019 02/08/2019 ONCE&2150 Diltiazem 120mg,extended release cap (CARD IZEM) 02/09/2019 03/10/2019 Daily&0900 METHYLPREDNISOLONE VIAL INJ 40 MG/CC (SOLU-MEDROL VIAL) MG 02/09/2019 02/13/2019 BID&0900,2100 OLMESARTAN TAB 20 MG (BENICAR) MG 02/10/2019 03/09/2019 Daily&0900 Diltiazem 120mg,extended release cap (CARD IZEM) 02/11/2019 03/12/2019 EVERY 24 Hour&0900 INSULIN ASPART PEN INJ 100 U NITS/CC (NOVOLOG FLEXPEN) 02/11/2019 03/13/2019 ACHS&0630,1130,1630,2100 ACETAMINOPHEN ORAL [...] MG 02/11/2019 02/18/2019 PRN Q4H Meropenem-0.9% sodium chlori de IV piggyback 500mg MG 02/11/2019 02/18/2019 Q8H&0600,1400,2200 ALUM/MAG/SIMETH 30CC LIQ (MYLANTA PLUS) cc 02/11/2019 02/21/2019 PRN Q4H GUAIFENESIN - DM LIQ (ROBITUSSIN DM) MLS 02/11/2019 02/18/2019 PRN Q4H HYDROCODONE/APAP 10/325 TAB 10 /325 (ALTON-TAB 10/325) TAB 02/11/2019 02/21/2019 PRN Q4H TRAMADOL TAB 50 MG (ULTRAM) MG 02/11/2019 02/21/2019 PRN Q6H Docusate sodium 100mg oral capsule (COLACE ) 02/11/2019 03/13/2019 PRN BID SENNA CONC/DOCUSATE TAB (SENOKOT S) TAB 02/11/2019 03/13/2019 PRN BID LACTULOSE SYRUP LIQ 20 GM/30 CC (CHRONULAC SYRUP) GM 02/11/2019 03/13/2019 BID&0800,2000 APIXABAN TAB 5 MG (ELIQUIS) MG 02/11/2019 03/13/2019 BID&0800,2000 LATANOPROST OPHTH SOLUTION L IQ 0.005 % (XALATAN) drops 02/11/2019 03/12/2019 QHS&2100 MELATONIN TAB 3 MG (MELATONIN) MG 02/11/2019 02/17/2019 PRN QHS LACTOBACILLUS BULGARIS TAB (LACTINEX BULGA RIS) tab 02/12/2019 03/13/2019 Daily&0900 Potassium Chloride Powder fo r Oral Soln 20mEQ packet MEQ 02/12/2019 02/18/2019 Daily&0900 MAGNESIUM OXIDE TAB 400 MG (MAG-OX) MG 02/12/2019 03/13/2019 Daily&0900 METOPROLOL-XL TAB 50 MG (TOPROL XL) MG 02/12/2019 03/13/2019 Daily&0900 OLMESARTAN TAB 20 MG (BENICAR) MG 02/12/2019 03/13/2019 Daily&0900 AMLODIPINE TAB 10 MG (NORVASC) MG 02/12/2019 03/13/2019 Daily&0900 Diltiazem 120mg,extended release cap (CARD IZEM) 02/12/2019 03/12/2019 EVERY 24 Hour&0900 BISACODYL TAB 5 MG (DULCOLAX) MG 02/12/2019 02/18/2019 PRN Daily POLYETHYLENE GLYCOL POWDER U D PWD (MIRALAX 17GM UNIT DOSE PAKS) gm 02/12/2019 02/18/2019 Daily&0900 BISACODYL SUPPOS 10 MG (DULCOLAX SUPPOS) MG 02/12/2019 02/18/2019 PRN Daily MILK OF MAGNESIA LIQ ml 02/12/2019 03/13/2019 PRN Daily Cydqrpkg-nyic-coo-folic acid ) tab,CHEWable (Centrum) TAB 02/12/2019 03/13/2019 Daily&0900 FUROSEMIDE VIAL INJ 40 MG (LASIX VIAL) MG 02/12/2019 02/12/2019 ONCE&0947 ACETAMINOPHEN TAB 500 MG (TYLENOL) MG 04/01/2019 04/01/2019 PRN ONCE ACETAMINOPHEN ORAL TABLET 325mg(Tylenol) MG 04/01/2019 05/01/2019 PRN EVERY 6 Hour HYDROCODONE/APAP 5MG/325MG T AB 5 MG/325MG (ALTON-TAB 5/325) TAB 04/01/2019 04/11/2019 PRN Q4H NORMAL SALINE 1000CC IV BAG INJ 0.9 % (NS 1000CC IV BAG) ml 04/01/2019 04/16/2019 CONTINUOUSEVERY 0 Hour ALPRAZOLAM TAB 0.25 MG (XANAX) MG 04/01/2019 04/11/2019 PRN Q6H CLONIDINE TAB 0.1 MG (CATAPRES) MG 04/01/2019 04/08/2019 PRN Q6H ACETAMINOPHEN SUPPOS SUP 650 MG (TYLENOL) MG 04/01/2019 04/08/2019 PRN Q4H ONDANSETRON VIAL INJ 4 MG/2CC (ZOFRAN 2CC VIAL) MG 04/01/2019 04/08/2019 PRN Q4H CALCIUM CARBONATE TAB 500 MG (TUMS) MG 04/01/2019 04/08/2019 PRN Q6H DIPHENHYDRAMINE CAP 25 MG (BENADRYL) MG 04/01/2019 04/08/2019 PRN Q6H HYDROCODONE/APAP 5MG/325MG T AB 5 MG/325MG (ALTON-TAB 5/325) TAB 04/01/2019 04/11/2019 PRN Q6H CEFTRIAXONE PREMIX IV BAG IV 1 GM/50CC (ROCEPHIN PREMIX IV BAG) GM 04/01/2019 04/07/2019 Daily&1800 ALUM/MAG/SIMETH 30CC LIQ (MYLANTA PLUS) cc 04/01/2019 04/11/2019 PRN Q4H GUAIFENESIN - DM LIQ (ROBITUSSIN DM) MLS 04/01/2019 04/08/2019 PRN Q4H METOPROLOL-XL TAB 50 MG (TOPROL XL) Dose(s) 04/01/2019 04/07/2019 Daily&2000 Docusate sodium 100mg oral capsule (COLACE ) 04/01/2019 05/01/2019 PRN BID PANTOPRAZOLE VIAL INJ 40 MG (PROTONIX IV) MG 04/01/2019 04/10/2019 Daily&2000 LACTULOSE SYRUP LIQ 20 GM/30 CC (CHRONULAC SYRUP) GM 04/01/2019 05/01/2019 BID&08 APIXABAN TAB 5 MG (ELIQUIS) Dose(s) 04/01/2019 04/08/2019 BID&0800,1999 LATANOPROST OPHTH SOLUTION L IQ 0.005 % (XALATAN) Dose(s) 04/01/2019 04/30/2019 QHS&2100 MELATONIN TAB 3 MG (MELATONIN) MG 04/01/2019 04/07/2019 PRN QHS IBUPROFEN TAB 800 MG (MOTRIN) MG 04/01/2019 04/08/2019 PRN Q8H MAGNESIUM OXIDE TAB 400 MG (MAG-OX) Dose(s) 04/02/2019 04/08/2019 Daily&0900 POTASSIUM CHLORIDE TAB 20 MEQ (K-DUR) MEQ 04/02/2019 05/01/2019 Daily&0900 METOPROLOL-XL TAB 50 MG (TOPROL XL) Dose(s) 04/02/2019 04/08/2019 Daily&0900 OLMESARTAN TAB 20 MG (BENICAR) Dose(s) 04/02/2019 04/08/2019 Daily&0900 AMLODIPINE TAB 10 MG (NORVASC) Dose(s) 04/02/2019 04/08/2019 Daily&0900 Diltiazem 120mg,extended release cap (CARD IZEM) Dose(s) 04/02/2019 04/08/2019 Daily&0900 BISACODYL TAB 5 MG (DULCOLAX) MG 04/02/2019 04/08/2019 Daily&0900 GLYBURIDE TAB 5 MG (MICRONASE) Dose(s) 04/02/2019 04/08/2019 Daily&0900 ALLOPURINOL TAB 100 MG (ZYLOPRIM) Dose(s) 04/02/2019 04/08/2019 Daily&0900 POLYETHYLENE GLYCOL POWDER U D PWD (MIRALAX 17GM UNIT DOSE PAKS) gm 04/02/2019 04/08/2019 Daily&0900 BISACODYL SUPPOS 10 MG (DULCOLAX SUPPOS) MG 04/02/2019 04/08/2019 PRN Daily Meropenem-0.9% sodium chlori de IV piggyback 500mg MG 04/02/2019 04/11/2019 Q12H&0900,2100 MILK OF MAGNESIA LIQ ml 04/02/2019 05/01/2019 PRN Daily Ekvvkquz-epej-mbe-folic acid ) tab,CHEWable (Centrum) Dose(s) 04/02/2019 05/01/2019 Daily&0900 Vancomycin-water IV piggyback 1 Gm Premix GM 04/02/2019 04/12/2019 Q12H&0000,1200 ACETAMINOPHEN ORAL TABLET 325mg(Tylenol) MG 04/02/2019 05/02/2019 PRN QID HYDROCODONE/APAP 10/325 TAB 10 /325 (ALTON-TAB 10/325) TAB 04/02/2019 04/12/2019 PRN Q4H AMOXICILLIN CAP 500 MG (AMOXIL) MG 04/04/2019 04/14/2019 TID&0800,1400,2000 HYDROCODONE/APAP 10/325 TAB 10 /325 (ALTON-TAB 10/325) Dose(s) 2019 05/05/2019 PRN Q6H FISH OIL CAP CAP 1000 MG (OMEGA 3) Dose(s) 2019 05/05/2019 BID&0800,2000 SENNA CONC/DOCUSATE TAB (SENOKOT S) TAB 2019 05/04/2019 QHS&2100 BISACODYL SUPPOS 10 MG (DULCOLAX SUPPOS) Dose(s) 04/06/2019 05/06/2019 PRN Daily LACTULOSE SYRUP LIQ 20 GM/30 CC (CHRONULAC SYRUP) Dose(s) 04/06/2019 05/06/2019 PRN Daily CEFTRIAXONE INJ 1 GM (ROCEPHIN) GM 05/02/2019 05/02/2019 ONCE&1657 ACETAMINOPHEN ORAL TABLET 325mg(Tylenol) MG 05/03/2019 06/02/2019 PRN EVERY 6 Hour NORMAL SALINE 1000CC IV BAG INJ 0.9 % (NS 1000CC IV BAG) ml 05/03/2019 05/18/2019 CONTINUOUSEVERY 0 Hour Meropenem-0.9% sodium chlori de IV piggyback 500mg MG 05/03/2019 05/13/2019 Q12H&0500,1700 IBUPROFEN TAB 600 MG (MOTRIN) MG 05/03/2019 05/10/2019 PRN Q6H ALPRAZOLAM TAB 0.25 MG (XANAX) MG 05/03/2019 05/13/2019 PRN Q6H TAMSULOSIN CAP 0.4 MG (FLOMAX) MG 05/03/2019 05/09/2019 QPM&1800 CLONIDINE TAB 0.1 MG (CATAPRES) MG 05/03/2019 05/10/2019 PRN Q6H ACETAMINOPHEN SUPPOS SUP 650 MG (TYLENOL) MG 05/03/2019 05/10/2019 PRN Q4H ONDANSETRON VIAL INJ 4 MG/2CC (ZOFRAN 2CC VIAL) MG 05/03/2019 05/10/2019 PRN Q4H CALCIUM CARBONATE TAB 500 MG (TUMS) MG 05/03/2019 05/10/2019 PRN Q6H DIPHENHYDRAMINE CAP 25 MG (BENADRYL) MG 05/03/2019 05/10/2019 PRN Q6H HYDROCODONE/APAP 10/325 TAB 10 /325 (ALTON-TAB 10/325) TAB 05/03/2019 06/02/2019 Q6H&0600,1200,1800,2359 ALUM/MAG/SIMETH 30CC LIQ (MYLANTA PLUS) cc 05/03/2019 05/13/2019 PRN Q4H GUAIFENESIN - DM LIQ (ROBITUSSIN DM) MLS 05/03/2019 05/10/2019 PRN Q4H NORMAL SALINE 250CC IV BAG I NJ 0.9 % (NS 250CC IV BAG) ml 05/03/2019 05/10/2019 Q12H&0700,1900 POLYETHYLENE GLYCOL POWDER U D PWD (MIRALAX 17GM UNIT DOSE PAKS) gm 05/03/2019 05/03/2019 PRN ONCE Docusate sodium 100mg oral capsule (COLACE ) 05/03/2019 06/02/2019 PRN BID FISH OIL CAP CAP 1000 MG (OMEGA 3) MG 05/03/2019 06/02/2019 BID&0800,2000 LACTULOSE SYRUP LIQ 20 GM/30 CC (CHRONULAC SYRUP) GM 05/03/2019 06/02/2019 BID&0800,2000 APIXABAN TAB 5 MG (ELIQUIS) MG 05/03/2019 06/02/2019 BID&0800,2000 LATANOPROST OPHTH SOLUTION L IQ 0.005 % (XALATAN) Dose(s) 05/03/2019 06/01/2019 QHS&2100 MELATONIN TAB 3 MG (MELATONIN) MG 05/03/2019 05/09/2019 PRN QHS LACTOBACILLUS BULGARIS TAB (LACTINEX BULGA RIS) 05/03/2019 05/13/2019 QID&0800,1200,1700,2200 HYDROCODONE/APAP 10/325 TAB 10 /325 (ALTON-TAB 10/325) TAB 05/03/2019 06/02/2019 PRN Q8H METOPROLOL TAB 25 MG (LOPRESSOR) MG 05/03/2019 05/03/2019 ONCE&2358 NORMAL SALINE 1000CC IV BAG INJ 0.9 % (NS 1000CC IV BAG) ml 05/03/2019 05/03/2019 ONCE&2358 NORMAL SALINE 1000CC IV BAG INJ 0.9 % (NS 1000CC IV BAG) ml 05/04/2019 05/04/2019 ONCE&0044 GLYBURIDE TAB 5 MG (MICRONASE) MG 05/04/2019 06/02/2019 Daily&0700 MAGNESIUM OXIDE TAB 400 MG (MAG-OX) MG 05/04/2019 06/02/2019 Daily&0900 TAMSULOSIN CAP 0.4 MG (FLOMAX) MG 05/04/2019 05/10/2019 Daily&0900 METOPROLOL-XL TAB 50 MG (TOPROL XL) MG 05/04/2019 06/02/2019 Daily&0900 Diltiazem 120mg,extended release cap (CARD IZEM) 05/04/2019 06/02/2019 Daily&0900 BISACODYL TAB 5 MG (DULCOLAX) MG 05/04/2019 05/10/2019 PRN Daily ALLOPURINOL TAB 100 MG (ZYLOPRIM) MG 05/04/2019 06/02/2019 Daily&0900 POLYETHYLENE GLYCOL POWDER U D PWD (MIRALAX 17GM UNIT DOSE PAKS) gm 05/04/2019 05/11/2019 PRN Daily BISACODYL SUPPOS 10 MG (DULCOLAX SUPPOS) MG 05/04/2019 05/10/2019 PRN Daily MILK OF MAGNESIA LIQ ml 05/04/2019 06/02/2019 PRN Daily Jvjvkhek-dpjq-vpi-folic acid ) tab,CHEWable (Centrum) TAB 05/04/2019 06/02/2019 Daily&0900 ALPRAZOLAM TAB 0.5 MG (XANAX) MG 05/06/2019 05/16/2019 PRN Q6H ACETAMINOPHEN ORAL TABLET 325mg(Tylenol) MG 05/06/2019 06/05/2019 PRN EVERY 6 Hour CLONIDINE TAB 0.1 MG (CATAPRES) MG 05/06/2019 05/13/2019 PRN Q6H CALCIUM CARBONATE TAB 500 MG (TUMS) MG 05/06/2019 05/13/2019 PRN Q6H DIPHENHYDRAMINE CAP 25 MG (BENADRYL) MG 05/06/2019 05/13/2019 PRN Q6H IBUPROFEN TAB 600 MG (MOTRIN) MG 05/06/2019 05/13/2019 PRN Q6H ALPRAZOLAM TAB 0.5 MG (XANAX) MG 05/06/2019 05/16/2019 PRN Q6H ACETAMINOPHEN SUPPOS SUP 650 MG (TYLENOL) MG 05/06/2019 05/13/2019 PRN Q4H ONDANSETRON VIAL INJ 4 MG/2CC (ZOFRAN 2CC VIAL) MG 05/06/2019 05/13/2019 PRN Q4H ALUM/MAG/SIMETH 30CC LIQ (MYLANTA PLUS) cc 05/06/2019 05/16/2019 PRN Q4H GUAIFENESIN - DM LIQ (ROBITUSSIN DM) MLS 05/06/2019 05/13/2019 PRN Q4H LACTOBACILLUS BULGARIS TAB (LACTINEX BULGA RIS) TAB 05/06/2019 05/16/2019 QID&0800,1200,1700,2200 Meropenem-0.9% sodium chlori de IV piggyback 500mg MG 05/06/2019 05/16/2019 Q12H&0500,1700 HYDROCODONE/APAP 10/325 TAB 10 /325 (ALTON-TAB 10/325) TAB 05/06/2019 06/05/2019 PRN Q8H Docusate sodium 100mg oral capsule (COLACE ) 05/06/2019 06/05/2019 PRN BID FISH OIL CAP CAP 1000 MG (OMEGA 3) MG 05/06/2019 06/05/2019 BID&0800,2000 LACTULOSE SYRUP LIQ 20 GM/30 CC (CHRONULAC SYRUP) GM 05/06/2019 06/05/2019 BID&0800,1999 APIXABAN TAB 5 MG (ELIQUIS) MG 05/06/2019 06/05/2019 BID&0800,1999 LATANOPROST OPHTH SOLUTION L IQ 0.005 % (XALATAN) drops 05/06/2019 06/04/2019 QHS&2100 MELATONIN TAB 3 MG (MELATONIN) MG 05/06/2019 05/12/2019 PRN QHS MAGNESIUM OXIDE TAB 400 MG (MAG-OX) MG 05/07/2019 06/05/2019 Daily&0900 TAMSULOSIN CAP 0.4 MG (FLOMAX) MG 05/07/2019 06/05/2019 Daily&0900 METOPROLOL-XL TAB 50 MG (TOPROL XL) MG 05/07/2019 06/05/2019 Daily&0900 Diltiazem 120mg,extended release cap (CARD IZEM) 05/07/2019 06/05/2019 Daily&0900 BISACODYL TAB 5 MG (DULCOLAX) MG 05/07/2019 05/13/2019 PRN Daily GLYBURIDE TAB 5 MG (MICRONASE) MG 05/07/2019 06/05/2019 Daily&0900 ALLOPURINOL TAB 100 MG (ZYLOPRIM) MG 05/07/2019 06/05/2019 Daily&0900 POLYETHYLENE GLYCOL POWDER U D PWD (MIRALAX 17GM UNIT DOSE PAKS) gm 05/07/2019 05/13/2019 Daily&0900 BISACODYL SUPPOS 10 MG (DULCOLAX SUPPOS) MG 05/07/2019 05/13/2019 PRN Daily MILK OF MAGNESIA LIQ ml 05/07/2019 06/05/2019 PRN Daily Pbuoyutp-djhu-lcm-folic acid ) tab,CHEWable (Centrum) TAB 05/07/2019 06/05/2019 Daily&0900 CALMOSEPTINE OINT TUBE (RISAMINE OINT) devi 05/09/2019 05/16/2019 PRN QID NORMAL SALINE 1000CC IV BAG INJ 0.9 % (NS 1000CC IV BAG) ml 11/15/2019 11/15/2019 ONCE&1338 LINEZOLID IV PREMIX BAG INJ 600 MG/300CC (ZYVOX PREMIX IV 300CC BAG) MG 11/15/2019 11/15/2019 ONCE&1512 Problems Date Dx Coded Attending Type Code Diagnosis Diagnosed By 06/03/2018 W 781.2 ABNO RMALITY OF GAIT 06/03/2018 W R26.81 UNS TEADINESS ON FEET 06/03/2018 W 719.46 LENORE N IN JOINT INVOLVING LOWER LEG 06/03/2018 W 781.2 ABNO RMALITY OF GAIT 06/03/2018 W M25.561 PA IN IN RIGHT KNEE 06/03/2018 W M25.562 PA IN IN LEFT KNEE 06/03/2018 W R26.81 UNS TEADINESS ON FEET 07/05/2018 A 719.46 LENORE N IN JOINT INVOLVING LOWER LEG 07/05/2018 W 781.2 ABNO RMALITY OF GAIT 07/05/2018 A M25.561 PA IN IN RIGHT KNEE 07/05/2018 W M25.562 PA IN IN LEFT KNEE 07/05/2018 W R26.81 UNS TEADINESS ON FEET 01/04/2019 BISMARK DONICKYA K Ot C54.1 MALIGNANT NEOPLASM OF ENDOMETRIUM 01/04/2019 BISMARK DO NYDIA K Ot E11.9 TYPE 2 DIABETES MELLITUS [...] ABSENCE OF OTHER SPECIFIED PART 01/04/2019 BISMARK NICKY MOOREA K Ot Z90.710 ACQUIRED ABSENCE OF BOTH CERVIX AND UTER 01/04/2019 BISMARK DO NYDIA K Ot Z92.21 PERSONAL HISTORY OF ANTINEOPLASTIC CHEMO 01/04/2019 BISMARK DO NYDIA K Ot Z98.890 OTHER SPECIFIED POSTPROCEDURAL STATES 01/06/2019 BISMARK NYDIA MOORE Ot C54.1 MALIGNANT NEOPLASM OF ENDOMETRIUM 01/06/2019 BISMARK DO NYDIA K Ot E11.9 TYPE 2 DIABETES MELLITUS WITHOUT COMPLIC 01/06/2019 BISMARK DO NYDIA K Ot I10 ESSENTIAL (PRIMARY) HYPERTENSION 01/06/2019 BISMARK DO NYDIA K Ot M10.9 GOUT, UNSPECIFIED 01/06/2019 BISMARK DO NYDIA K Ot N39.0 URINARY TRACT INFECTION, SITE NOT SPECIF 01/06/2019 BISMARK DO NYDIA K Ot R42 DIZZINESS AND GIDDINESS 01/06/2019 BISMARK DO NYDIA K Ot R55 SYNCOPE AND COLLAPSE 01/06/2019 NYDIA SOFIA DO Ot Z90.49 ACQUIRED ABSENCE OF OTHER SPECIFIED PART 01/06/2019 NYDIA SOFIA DO Ot Z90.710 ACQUIRED ABSENCE OF BOTH CERVIX AND UTER 01/06/2019 NYDIA SOFIA DO Ot Z92.21 PERSONAL HISTORY OF ANTINEOPLASTIC CHEMO 01/06/2019 NYDIA SOFIA DO Ot Z98.890 OTHER SPECIFIED POSTPROCEDURAL STATES 01/12/2019 VELASQUEZ LEDESMA DO Ot C55 MALIGNANT NEOPLASM OF UTERUS, PART UNSPE 01/12/2019 KORY MOORE VELASQUEZ Ot 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 01/12/2019 KORY MOORE VELASQUEZ Ot 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 01/12/2019 KORY MOORE VELASQUEZ Ot E11.9 TYPE 2 DIABETES MELLITUS WITHOUT COMPLIC 01/12/2019 KORY MOORE VELASQUEZ Ot H35.30 UNSPECIFIED MACULAR DEGENERATION 01/12/2019 KORY MOORE VELASQUEZ Ot I10 ESSENTIAL (PRIMARY) HYPERTENSION 01/12/2019 DIONNE LEDESMA DOI Ot I26.99 OTHER PULMONARY EMBOLISM WITHOUT ACUTE C 01/12/2019 DIONNE LEDESMA DOI Ot J44.9 CHRONIC OBSTRUCTIVE PULMONARY DISEASE, U 01/12/2019 KORY MOORE VELASQUEZ Ot M10.9 GOUT, UNSPECIFIED 01/12/2019 KORY MOORE VELASQUEZ Ot M19.91 PRIMARY OSTEOARTHRITIS, UNSPECIFIED SITE 01/12/2019 KORY MOORE VELASQUEZ Ot M54.9 DORSALGIA, UNSPECIFIED 01/12/2019 KORY MOORE VELASQUEZ Ot N30.00 ACUTE CYSTITIS WITHOUT HEMATURIA 01/12/2019 DIONNE LEDESMA DOI Ot Z79.89 9 OTHER EQUITY STRUCTURER (CURRENT) DRUG THERAPY 01/12/2019 DIONNE LEDESMA DOI Ot Z87.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 01/12/2019 KORY MOORE VELASQUEZ Ot Z92.21 PERSONAL HISTORY OF ANTINEOPLASTIC CHEMO 01/12/2019 VELASQUEZ LEDESMA DO Ot C55 MALIGNANT NEOPLASM OF UTERUS, PART UNSPE 01/12/2019 KORY MOORE VELASQUEZ Ot 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 01/12/2019 KORY MOORE VELASQUEZ Ot 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 01/12/2019 KORY MOORE VELASQUEZ Ot E11.9 TYPE 2 DIABETES MELLITUS WITHOUT COMPLIC 01/12/2019 LEDESMA DO, VELASQUEZ Ot E87.6 HYPOKALEMIA 01/12/2019 LEDESMA DO, VELASQUEZ Ot H35.30 UNSPECIFIED MACULAR DEGENERATION 01/12/2019 LEDESMA DO, VELASQUEZ Ot I10 ESSENTIAL (PRIMARY) HYPERTENSION 01/12/2019 LEDESMA DO, VELASQUEZ Ot I26.99 OTHER PULMONARY EMBOLISM WITHOUT ACUTE C 01/12/2019 KORY MOORE VELASQUEZ Ot J44.9 CHRONIC OBSTRUCTIVE PULMONARY DISEASE, U 01/12/2019 LEDESMA DO VELASQUEZ Ot M10.9 GOUT, UNSPECIFIED 01/12/2019 LEDESMA DO, VELASQUEZ Ot M19.91 PRIMARY OSTEOARTHRITIS, UNSPECIFIED SITE 01/12/2019 LEDESMA DO VELASQUEZ Ot M54.9 DORSALGIA, UNSPECIFIED 01/12/2019 LEDESMA DO VELASQUEZ Ot N30.00 ACUTE CYSTITIS WITHOUT HEMATURIA 01/12/2019 LEDESMAANUSHKA MOORE VELASQUEZ Ot Z79.01 EQUITY STRUCTURER (CURRENT) USE OF ANTICOAGULANT 01/12/2019 KORY MOORE VELASQUEZ Ot Z79.89 9 OTHER EQUITY STRUCTURER (CURRENT) DRUG THERAPY 01/12/2019 LEDESMAANUSHKA MOORE VELASQUEZ Ot Z87.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 01/12/2019 KORY MOORE VELASQUEZ Ot Z91.19 PATIENT'S NONCOMPLIANCE W 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 02/11/2019 Velasquez Ledesma W 179 MALIGNANT NEOPLASM OF UTERUS, PART UNSPECIFIED 02/11/2019 Velasquez Ledesma W 250.00 DIABETES MELLITUS WITHOUT MENTION OF COMPLICATION, TYPE II OR UNSPECIFIED TYPE, NOT STATED UNCONTROLLED 02/11/2019 Velasquez Ledesma W 272.4 OTHER AND UNSPECIFIED HYPERLIPIDEMIA 02/11/2019 Velasquez Ledesma W 274.9 GOUT, UNSPECIFIED 02/11/2019 Velasquez Ledesma W 276.51 DEHYDRATION 02/11/2019 Velasquez Ledesma W 401.0 MALIGNANT ESSENTIAL HYPERTENSION 02/11/2019 Velasquez Ledesma W 486 PNEUMONIA, ORGANISM UNSPECIFIED 02/11/2019 Velasquez Ledesma W 782.3 EDEMA 02/11/2019 Velasquez Ledesma W 790.4 NONSPECIFIC ELEVATION OF LEVELS OF TRANSAMINASE OR LACTIC ACID DEHYDROGENASE [LDH] 02/11/2019 Velasquez Ledesma A41.9 SEPSIS, UNSPECIFIED ORGANISM 02/11/2019 Velasquez Ledesma W B39.0 ACUTE PULMONARY HISTOPLASMOSIS CAPSULATI 02/11/2019 Velasquez Ledesma W B96.89 OTH BACTERIAL AGENTS THE CAUSE OF DISEASES CLASSD ELSWHR 02/11/2019 Velasquez Ledesma W C55 MALIGNANT NEOPLASM OF UTERUS, PART UNSPECIFIED 02/11/2019 Velasquez Ledesma W E11.9 TYPE 2 DIABETES MELLITUS WITHOUT COMPLICATIONS 02/11/2019 Velasquez Ledesma W E78.5 HYPERLIPIDEMIA, UNSPECIFIED 02/11/2019 Velasquez Ledesma W E86.0 DEHYDRATION 02/11/2019 Velasquez Ledesma W I10 ESSENTIAL (PRIMARY) HYPERTENSION 02/11/2019 Velasquez Ledesma W J18.9 PNEUMONIA, UNSPECIFIED ORGANISM 02/11/2019 Velasquez Ledesma W M10.9 GOUT, UNSPECIFIED 02/11/2019 Velasquez Ledesma W R60.0 LOCALIZED EDEMA 02/11/2019 Velasquez Ledesma W R74.0 NONSPEC ELEV OF LEVELS OF TRANSAMNS T LACTIC ACID DEHYDRGNSE 02/14/2019 Velasquez Ledesma W 038.9 UNSPECIFIED SEPTICEMIA 02/14/2019 Velasquez Ledesma W 179 MALIGNANT NEOPLASM OF UTERUS, PART UNSPECIFIED 02/14/2019 Velasquez Ledesma W 250.00 DIABETES MELLITUS WITHOUT MENTION OF COMPLICATION, TYPE II OR UNSPECIFIED TYPE, NOT STATED UNCONTROLLED 02/14/2019 Velasquez Ledesma W 272.4 OTHER AND UNSPECIFIED HYPERLIPIDEMIA 02/14/2019 Velasquez Ledesma W 274.9 GOUT, UNSPECIFIED 02/14/2019 Velasquez Ledesma W 276.51 DEHYDRATION 02/14/2019 Velasquez Ledesma W 401.0 MALIGNANT ESSENTIAL HYPERTENSION 02/14/2019 Velasquez Ledesma W 427.31 ATRIAL FIBRILLATION 02/14/2019 Velasquez Ledesma W 486 PNEUMONIA, ORGANISM UNSPECIFIED 02/14/2019 Velasquez Ledesma W 782.3 EDEMA 02/14/2019 Velasquez Ledesma W 790.4 NONSPECIFIC ELEVATION OF LEVELS OF TRANSAMINASE OR LACTIC ACID DEHYDROGENASE [LDH] 02/14/2019 Velasquez Ledesma W A41.9 SEPSIS, UNSPECIFIED ORGANISM 02/14/2019 Velasquez Ledesma W C55 MALIGNANT NEOPLASM OF UTERUS, PART UNSPECIFIED 02/14/2019 Velasquez Ledesma W E11.9 TYPE 2 DIABETES MELLITUS WITHOUT COMPLICATIONS 02/14/2019 Velasquez Ledesma W E78.5 HYPERLIPIDEMIA, UNSPECIFIED 02/14/2019 Velasquez Ledesma W E86.0 DEHYDRATION 02/14/2019 Velasquez Ledesma W I10 ESSENTIAL (PRIMARY) HYPERTENSION 02/14/2019 Velasquez Ledesma W I48.91 UNSPECIFIED ATRIAL FIBRILLATION 02/14/2019 Velasquez Ledesma W J18.9 PNEUMONIA, UNSPECIFIED ORGANISM 02/14/2019 Velasquez Ledesma W M10.9 GOUT, UNSPECIFIED 02/14/2019 Velasquez Ledesma W R60.0 LOCALIZED EDEMA 02/14/2019 Velasquez Ledesma W R74.0 NONSPEC ELEV OF LEVELS OF TRANSAMNS T LACTIC ACID DEHYDRGNSE 03/15/2019 VELASQUEZ LEDESMA DO Ot B96.7 CLOSTRIDIUM PERFRINGENS CAUSING DISEASES 03/15/2019 VELASQUEZ LEDESMA DO Ot 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 03/15/2019 VELASQUEZ LEDESMA DO Ot 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 03/15/2019 VELASQUEZ LEDESMA DO Ot C79.89 SECONDARY MALIGNANT NEOPLASM OF OTHER SP 03/15/2019 LEDESMA DO, VELASQUEZ Ot D64.9 ANEMIA, UNSPECIFIED 03/15/2019 KORY MOORE VELASQUEZ Ot D72.82 3 LEUKEMOID REACTION 03/15/2019 KORY MOORE VELASQUEZ Ot E11.21 TYPE 2 DIABETES MELLITUS WITH DIABETIC N 03/15/2019 KORY MOORE VELASQUEZ Ot G89.3 NEOPLASM RELATED PAIN (ACUTE) (CHRONIC) 03/15/2019 KORY MOORE VELASQUEZ Ot H35.30 UNSPECIFIED MACULAR DEGENERATION 03/15/2019 KORY MOORE VELASQUEZ Ot I10 ESSENTIAL (PRIMARY) HYPERTENSION 03/15/2019 KORY MOORE VELASQUEZ Ot 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 03/15/2019 KORY MOORE VELASQUEZ Ot K59.09 OTHER CONSTIPATION 03/15/2019 KORY MOORE VELASQUEZ Ot K59.8 OTHER SPECIFIED FUNCTIONAL INTESTINAL DI 03/15/2019 DIONNE LEDESMA DOI Ot M10.9 GOUT, UNSPECIFIED 03/15/2019 KORY MOORE VELASQUEZ Ot M19.91 PRIMARY OSTEOARTHRITIS, UNSPECIFIED SITE 03/15/2019 VELASQUEZ LEDESMA DO Ot M54.9 DORSALGIA, UNSPECIFIED 03/15/2019 KORY MOORE VELASQUEZ Ot N13.6 PYONEPHROSIS 03/15/2019 KORY MOORE VELASQUEZ Ot N28.9 DISORDER OF KIDNEY AND URETER, UNSPECIFI 03/15/2019 KORY MOORE VELASQUEZ Ot R31.9 HEMATURIA, UNSPECIFIED 03/15/2019 KORY MOORE VELASQUEZ Ot R60.9 EDEMA, UNSPECIFIED 03/15/2019 KORY MOORE VELASQUEZ Ot Z66 DO NOT RESUSCITATE 03/15/2019 VELASQUEZ LEDESMA DO Ot Z79.01 [facility] (CURRENT) USE OF ANTICOAGULANT 03/15/2019 VELASQUEZ LEDESMA DO Ot Z79.89 9 OTHER [facility] (CURRENT) DRUG THERAPY 03/15/2019 KORY MOORE VELASQUEZ Ot Z85.42 PERSONAL HISTORY OF MALIGNANT NEOPLASM O 03/15/2019 VELASQUEZ LEDESMA DO Ot Z92.21 PERSONAL HISTORY OF ANTINEOPLASTIC CHEMO 03/15/2019 VELASQUEZ LEDESMA DO Ot Z92.3 PERSONAL HISTORY OF IRRADIATION 04/01/2019 Velasquez Ledesma W 599.0 URINARY TRACT INFECTION, SITE NOT SPECIFIED 04/01/2019 Velasquez Ledesma W N39.0 URINARY TRACT INFECTION, SITE NOT SPECIFIED 2019 Velasquez Ledesma W 038.9 UNSPECIFIED SEPTICEMIA 2019 Velasquez Ledesma W 179 MALIGNANT NEOPLASM OF UTERUS, PART UNSPECIFIED 2019 Velasquez Ledesma W 250.00 DIABETES MELLITUS WITHOUT MENTION OF COMPLICATION, TYPE II OR UNSPECIFIED TYPE, NOT STATED UNCONTROLLED 2019 Velasquez Ledesma W 274.9 GOUT, UNSPECIFIED 2019 Velasquez Ledesma W 276.51 DEHYDRATION 2019 Velasquez Ledesma W 401.0 MALIGNANT ESSENTIAL HYPERTENSION 2019 Velasquez Ledesma W 427.31 ATRIAL FIBRILLATION 2019 Velasquez Ledesma W 599.0 URINARY TRACT INFECTION, SITE NOT SPECIFIED 2019 Velasquez Ledesma W 782.3 EDEMA 2019 Velasquez Ledesma W A41.9 SEPSIS, UNSPECIFIED ORGANISM 2019 eVlasquez Ledesma W C55 MALIGNANT NEOPLASM OF UTERUS, PART UNSPECIFIED 2019 Velasquez Ledesma W E11.9 TYPE 2 DIABETES MELLITUS WITHOUT COMPLICATIONS 2019 Velasquez Ledesma W E86.0 DEHYDRATION 2019 Velasquez Ledesma W I10 ESSENTIAL (PRIMARY) HYPERTENSION 2019 Velasquez Ledesma W I48.0 PAROXYSMAL ATRIAL FIBRILLATION 2019 Velasquez Ledesma W M10.9 GOUT, UNSPECIFIED 2019 Kory Velasquez W N39.0 URINARY TRACT INFECTION, SITE NOT SPECIFIED 2019 Velasquez Ledesma W R60.0 LOCALIZED EDEMA 05/02/2019 Wily Moore W 599.0 URINARY TRACT INFECTION, SITE NOT SPECIFIED 05/02/2019 Wily Moore N39.0 URINARY TRACT INFECTION, SITE NOT SPECIFIED 05/03/2019 Velasquez Ledesma W 276.51 DEHYDRATION 05/03/2019 Velasquez Ledesma W 599.0 URINARY TRACT INFECTION, SITE NOT SPECIFIED 05/03/2019 Velasquez Ledesma W E86.0 DEHYDRATION 05/03/2019 Kory Velasquez W N39.0 URINARY TRACT INFECTION, SITE NOT SPECIFIED 05/06/2019 Velasquez Ledesma W 038.9 UNSPECIFIED SEPTICEMIA 05/06/2019 Velasquez Ledesma W 179 MALIGNANT NEOPLASM OF UTERUS, PART UNSPECIFIED 05/06/2019 Velasquez Ledesma W 250.00 DIABETES MELLITUS WITHOUT MENTION OF COMPLICATION, TYPE II OR UNSPECIFIED TYPE, NOT STATED UNCONTROLLED 05/06/2019 Velasquez Ledesma W 272.4 OTHER AND UNSPECIFIED HYPERLIPIDEMIA 05/06/2019 Velasquez Ledesma W 276.51 DEHYDRATION 05/06/2019 Velasquez Ledesma W 401.0 MALIGNANT ESSENTIAL HYPERTENSION 05/06/2019 Velasquez Ledesma W 427.31 ATRIAL FIBRILLATION 05/06/2019 Velasquez Ledesma W 584.9 ACUTE KIDNEY FAILURE, UNSPECIFIED 05/06/2019 Velasquez Ledesma W 599.0 URINARY TRACT INFECTION, SITE NOT SPECIFIED 05/06/2019 Velasquez Ledesma W 790.4 NONSPECIFIC ELEVATION OF LEVELS OF TRANSAMINASE OR LACTIC ACID DEHYDROGENASE [LDH] 05/06/2019 Velasquez Ledesma W A41.9 SEPSIS, UNSPECIFIED ORGANISM 05/06/2019 Velasquez Ledesma W C55 MALIGNANT NEOPLASM OF UTERUS, PART UNSPECIFIED 05/06/2019 Velasquez Ledesma W E11.9 TYPE 2 DIABETES MELLITUS WITHOUT COMPLICATIONS 05/06/2019 Velasquez Ledesma W E78.5 HYPERLIPIDEMIA, UNSPECIFIED 05/06/2019 Velasquez Ledesma W E86.0 DEHYDRATION 05/06/2019 Velasquez Ledesma W I10 ESSENTIAL (PRIMARY) HYPERTENSION 05/06/2019 Velasquez Ledesma W I48.91 UNSPECIFIED ATRIAL FIBRILLATION 05/06/2019 Velasquez Ledesma W N17.9 ACUTE KIDNEY FAILURE, UNSPECIFIED 05/06/2019 Velasquez Ledesma W N39.0 URINARY TRACT INFECTION, SITE NOT SPECIFIED 05/06/2019 Velasquez Ledesma W R74.0 NONSPEC ELEV OF LEVELS OF TRANSAMNS T LACTIC ACID DEHYDRGNSE 05/09/2019 Velasquez Ledesma W 038.9 UNSPECIFIED SEPTICEMIA 05/09/2019 Velasquez Ledesma W 179 MALIGNANT NEOPLASM OF UTERUS, PART UNSPECIFIED 05/09/2019 Velasquez Ledesma W 250.00 DIABETES MELLITUS WITHOUT MENTION OF COMPLICATION, TYPE II OR UNSPECIFIED TYPE, NOT STATED UNCONTROLLED 05/09/2019 Velasquez Ledesma W 272.4 OTHER AND UNSPECIFIED HYPERLIPIDEMIA 05/09/2019 Velasquez Ledesma W 274.9 GOUT, UNSPECIFIED 05/09/2019 Velasquez Ledesma W 427.31 ATRIAL FIBRILLATION 05/09/2019 Velasquez Ledesma W 599.0 URINARY TRACT INFECTION, SITE NOT SPECIFIED 05/09/2019 Velasquez Ledesma W 782.3 EDEMA 05/09/2019 Velasquez Ledesma W A41.9 SEPSIS, UNSPECIFIED ORGANISM 05/09/2019 Ledesma, Velasquez W C55 MALIGNANT NEOPLASM OF UTERUS, PART UNSPECIFIED 05/09/2019 Dionne Ledesmai W E11.9 TYPE 2 DIABETES MELLITUS WITHOUT COMPLICATIONS 05/09/2019 Dionne Ledesmai W E78.5 HYPERLIPIDEMIA, UNSPECIFIED 05/09/2019 Dionne Ledesmai W I48.0 PAROXYSMAL ATRIAL FIBRILLATION 05/09/2019 Velasquez Ledesma W M10.9 GOUT, UNSPECIFIED 05/09/2019 Dionne Ledesmai W N39.0 URINARY TRACT INFECTION, SITE NOT SPECIFIED 05/09/2019 Dionne Ledesmai W R60.0 LOCALIZED EDEMA 11/15/2019 LEISURE, KRISJENAE W 599.0 URINARY TRACT INFECTION, SITE 11/15/2019 LEISURE, OLEG W 793.99 OTHER NONSPEC 11/15/2019 LEISURE, KRISJENAE W A41.9 SEPSIS, UNSPECIFIED ORGANISM 11/15/2019 LEISURE, KRISARBENA W B39.0 ACUTE PULMONARY HISTOPLASMOSIS CAPSULATI 11/15/2019 LEISURE, KRISJENAE W C55 MALIGNANT NEOPLASM OF UTERUS, PART UNSPECIFIED 11/15/2019 LEISURE, KRISJENAE W E11.9 TYPE 2 DIABETES MELLITUS WITHOUT COMPLICATIONS 11/15/2019 LEISURE, OLEG W E78.5 HYPERLIPIDEMIA, UNSPECIFIED 11/15/2019 LEISURE, OLEG W E86.0 DEHYDRATION 11/15/2019 LEISURE, OLEG W I10 ESSENTIAL (PRIMARY) HYPERTENSION 11/15/2019 LEISURE, KAVINA W I48.91 UNSPECIFIED ATRIAL FIBRILLATION 11/15/2019 LEISURE, OLEG W M10.9 GOUT, UNSPECIFIED 11/15/2019 LEISURE, KAVINA W M25.56 2 PAIN IN LEFT KNEE 11/15/2019 LEISURE, KAVINA W N13.39 OTHER HYDRONEPHROSIS 11/15/2019 LEISURE, KAVINA W N39.0 URINARY 11/15/2019 LEISURE, KAVINA W R50.9 FEVER, UNSPECIFIED 11/15/2019 LEISURE, KAVINA W R60.0 LOCALIZED EDEMA 11/15/2019 OLEG JONES R74.0 NONSPEC ELEV OF LEVELS OF TRANSAMNS T LACTIC ACID DEHYDRGNSE 11/15/2019 OLEG JONES R93.0 ABNORMAL FINDINGS ON DIAGNOSTIC IMAGING OF SKULL AND HEAD, NOT ELSEWHERE CLASSIFIED 01/30/2020 GERALD THORNTON MD Ot Z01.8 18 ENCOUNTER FOR OTHER PREPROCEDURAL EXAMIN 01/30/2020 GERALD THORNTON MD Ot Z01.8 18 ENCOUNTER FOR OTHER PREPROCEDURAL EXAMIN Procedures Code Description Performed By Per formed On [id number] DI LATION OF LEFT URETER WITH INTRALUMINA 03/14/2019 Results Test Result Range Urinalysis - 07/13/18 15:28 Icotest N/A Negative Urine Volume Urine Volume Sufficient (10mL) Urine-Appearance Clear Clear Urine-Bacteria 1+ Urine-Bilirubin Negative Negative Urine-Blood 2+ Negative Urine-Color Yellow Colorless-Lt. Stanton ow Urine-Epithelial Cells 0-5/HPF Urine-Glucose Negative Negative Urine-Ketones Negative Negative Urine-Leukocytes 2+ Negative Urine-Nitrite Negative Negative Urine-Other Culture to follow Urine-pH 5.5 5-8.5 Urine-Protein Negative Negative Urine-RBC 0-2/HPF Urine-Specific Sumrall 1.025 1.000-1 .030 Urine-WBC 5-10/HPF Urobilinogen 0.2 E.U./dL 0.2-1.0 Urine Culture - 07/13/18 15:28 PRELIM CULTURE RESULTS <10,000 Gram Positive Mixed Gustavo [id number] Skin Contaminant FINAL CULTURE RESULTS 20,000-50,000 Gram Pos itive Mixed Gustavo MEDIA PLATED Setup at 16:24 on 07/13/2018 CULTURE SOURCE Urine clean [id number]\ Complete urinalysis with reflex to cultu re - 01/04/19 18:41 Urine color determination YELLOW NRG Urine clarity determination SLIGHTLY CLOUDY NRG Urine pH measurement by test strip 6 5-9 Specific gravity of urine by test strip 1.015 1.016-1.022 Urine protein assay by test strip, semi-quantitative 3+ NEGATIVE Urine glucose detection by automated test strip NE GATIVE NEGATIVE Erythrocytes detection in urine sediment by light micr oscopy 5+ NEGATIVE Urine ketones detection by automated test strip NE GATIVE NEGATIVE Urine nitrite detection by test strip NEGATIVE NEGATIVE Urine total bilirubin detection by test strip NEGA TIVE NEGATIVE Urine urobilinogen measurement by automated test strip (mass/volume) NORMAL NORMAL Urine leukocyte esterase detection by dipstick 3+ NEGATIVE Automated urine sediment erythrocyte cou nt by microscopy (number/high power field) TNTC NRG Automated urine sediment leukocyte count by microscopy (number/high power field) > [HPF] NRG Bacteria detection in urine sediment by light microsco py MODERATE NRG Squamous epithelial cells detection in u rine sediment by light microscopy 5-10 NRG Crystals detection in urine sediment by light microsco py NONE NRG Casts detection in urine sediment by light microscopy NONE NRG Mucus detection in urine sediment by light microscopy NEGATIVE NRG Complete urinalysis with reflex to culture YES NRG Bacterial urine culture - 01/04/19 18:41 Bacterial urine culture 3 OR MORE NRG COLONY COUNT 20,000 CFU/ML NRG FTX;REPORTABLE (GRAM POSITIVE) SUGGESTING PROBABLE NRG FREE TEXT ENTRY 2 COLLECTION CONTAMINATION WITH SK IN NRG FREE TEXT ENTRY 3 GUSTAVO. NO SUSCEPTIBILITY PERFOR MED NRG Complete blood count (CBC) with automate d white blood cell (WBC) differential - 01/04/19 19:10 Blood leukocytes automated count (number/volume) 7.7 10*3/uL 4.3-11.0 Blood erythrocytes automated count (number/volume) 3.65 10*6/uL 4.35-5.85 Venous blood hemoglobin measurement (mass/volume) 12.2 g/dL 11.5-16.0 Blood hematocrit (volume fraction) 36 % 35-52 Automated erythrocyte mean corpuscular volume 98 [ foz_us] 80-99 Automated erythrocyte mean corpuscular h emoglobin (mass per erythrocyte) 33 pg 25-34 Automated erythrocyte mean corpuscular h emoglobin concentration measurement (mass/volume) 34 g/dL 32-36 Automated erythrocyte distribution width ratio 12. 5 % 10.0- 14.5 Automated blood platelet count [...] 10*3 1.0-4.0 Blood monocytes automated count (number/volume) 0. 7 10*3 0.0-1.0 Automated eosinophil count 0.3 10*3/uL 0 .0-0.3 Automated blood basophil count (count/volume) 0.0 10*3/uL 0.0-0.1 PT panel in platelet poor plasma by coag ulation assay - 01/04/19 19:10 Prothrombin time (PT) in platelet poor plasma by coagu lation assay 13.6 s 12.2-14.7 INR in platelet poor plasma or blood by coagulation as say 1.0 0.8-1.4 Activated partial thromboplastin time (a PTT) in platelet poor plasma bycoagulation assay - 01/04/19 19:10 Activated partial thromboplastin time (a PTT) in platelet poor plasma bycoagulation assay 31 s 24-35 Comprehensive metabolic panel - 01/04/19 19:10 Serum or plasma sodium measurement (moles/volume) 139 mmol/L 135-145 Serum or plasma potassium measurement (moles/volume) 3.7 mmol/L 3.6-5.0 Serum or plasma chloride measurement (moles/volume) 103 mmol/L 98-107 Carbon dioxide 26 mmol/L 21-32 Serum or plasma anion gap determination (moles/volume) 10 mmol/L 5-14 Serum or plasma urea nitrogen measurement (mass/volume ) 19 mg/dL 7-18 Serum or plasma creatinine measurement (mass/volume) 0.90 mg/dL 0.60-1.30 Serum or plasma urea nitrogen/creatinine mass ratio 21 NRG Serum or plasma creatinine measurement w ith calculation of estimated glomerular filtration rate 60 NRG Serum or plasma glucose measurement (mass/volume) 102 mg/dL 70-105 Serum or plasma calcium measurement (mass/volume) 9.9 mg/dL 8.5-10.1 Serum or plasma total bilirubin measurement (mass/volu me) 0.4 mg/dL 0.1-1.0 Serum or plasma alkaline phosphatase marleni surement (enzymatic activity/volume) 75 U/L 40-136 Serum or plasma aspartate aminotransfera se measurement (enzymatic activity/volume) 23 U/L 5-34 Serum or plasma alanine aminotransferase measurement (enzymatic activity/volume) 21 U/L 0-55 Serum or plasma protein measurement (mass/volume) 6.6 g/dL 6.4-8.2 Serum or plasma albumin measurement (mass/volume) 4.0 g/dL 3.2-4.5 CALCIUM CORRECTED 9.9 mg/dL 8.5-10.1 Magnesium - 01/04/19 19:10 Magnesium 2.1 mg/dL 1.8-2.4 Serum or plasma troponin i.cardiac measu rement (mass/volume) - 01/04/19 19:10 Serum or plasma troponin i.cardiac measurement (mass/v olume) < ng/mL <0.028 Serum or plasma thyrotropin measurement by detection limit <=0.05 miu/l (units/volume) - 01/04/19 19:10 Serum or plasma thyrotropin measurement by detection limit <=0.05 miu/l (units/volume) 1.56 u[iU]/mL 0.35-4.94 Influenza virus A and B antigen detectio n - 01/08/19 14:22 FLU RESULT NEGATIVE FOR INFLUENZA A AND B ANTIGENS BY [facility] Complete blood count (CBC) with automate d white blood cell (WBC) differential - 01/08/19 14:31 Blood leukocytes automated count (number/volume) 8.2 10*3/uL 4.3-11.0 Blood erythrocytes automated count (number/volume) 3.73 10*6/uL 4.35-5.85 Venous blood hemoglobin measurement (mass/volume) 12.4 g/dL 11.5-16.0 Blood hematocrit (volume fraction) 36 % 35-52 Automated erythrocyte mean corpuscular volume 97 [ foz_us] 80-99 Automated erythrocyte mean corpuscular h emoglobin (mass per erythrocyte) 33 pg 25-34 Automated erythrocyte mean corpuscular h emoglobin concentration measurement (mass/volume) 34 g/dL 32-36 Automated erythrocyte distribution width ratio 12. 7 % 10.0- 14.5 Automated blood platelet count [...] 10*3 1.0-4.0 Blood monocytes automated count (number/volume) 0. 6 10*3 0.0-1.0 Automated eosinophil count 0.4 10*3/uL 0 .0-0.3 Automated blood basophil count (count/volume) 0.0 10*3/uL 0.0-0.1 Serum or plasma C reactive protein measu rement (mass/volume) - 01/08/19 14:31 Serum or plasma C reactive protein measurement (mass/v olume) 6.27 mg/dL 0.00-0.50 Blood lactic acid measurement (moles/vol ume) - 01/08/19 14:31 Blood lactic acid measurement (moles/volume) 2.69 mmol/L 0.50-2.00 Comprehensive metabolic panel - 01/08/19 14:31 Serum or plasma sodium measurement (moles/volume) 137 mmol/L 135-145 Serum or plasma potassium measurement (moles/volume) 3.7 mmol/L 3.6-5.0 Serum or plasma chloride measurement (moles/volume) 103 mmol/L 98-107 Carbon dioxide 22 mmol/L 21-32 Serum or plasma anion gap determination (moles/volume) 12 mmol/L 5-14 Serum or plasma urea nitrogen measurement (mass/volume ) 15 mg/dL 7-18 Serum or plasma creatinine measurement (mass/volume) 0.84 mg/dL 0.60-1.30 Serum or plasma urea nitrogen/creatinine mass ratio 18 NRG Serum or plasma creatinine measurement w ith calculation of estimated glomerular filtration rate > NRG Serum or plasma glucose measurement (mass/volume) 182 mg/dL 70-105 Serum or plasma calcium measurement (mass/volume) 9.2 mg/dL 8.5-10.1 Serum or plasma total bilirubin measurement (mass/volu me) 0.5 mg/dL 0.1-1.0 Serum or plasma alkaline phosphatase marleni surement (enzymatic activity/volume) 83 U/L 40-136 Serum or plasma aspartate aminotransfera se measurement (enzymatic activity/volume) 42 U/L 5-34 Serum or plasma alanine aminotransferase measurement (enzymatic activity/volume) 31 U/L 0-55 Serum or plasma protein measurement (mass/volume) 6.3 g/dL 6.4-8.2 Serum or plasma albumin measurement (mass/volume) 3.7 g/dL 3.2-4.5 CALCIUM CORRECTED 9.4 mg/dL 8.5-10.1 Serum or plasma troponin i.cardiac measu rement (mass/volume) - 01/08/19 14:31 Serum or plasma troponin i.cardiac measurement (mass/v olume) < ng/mL <0.028 Blood manual differential performed dete ction - 01/08/19 14:31 Blood monocytes/100 leukocytes 3 % NRG Manual blood segmented neutrophils/100 leukocytes 88 % NRG Blood band neutrophils/100 leukocytes 0 % NRG Manual blood lymphocytes/100 leukocytes 8 % NRG Manual eosinophils/100 leukocytes in nose 1 % NRG Blood erythrocyte morphology finding identification NORMAL NRG Serum or plasma lithium measurement (mol es/volume) - 01/08/19 14:31 BNP level 151.9 pg/mL <100.0 Bacterial blood culture - 01/08/19 14:31 Bacterial blood culture NG NRG Bacterial blood culture - 01/08/19 14:59 Bacterial blood culture NG NRG Complete urinalysis with reflex to cultu re - 01/08/19 15:36 Urine color determination YELLOW NRG Urine clarity determination VERY CLOUDY NRG Urine pH measurement by test strip 6 5-9 Specific gravity of urine by test strip 1.015 1.016-1.022 Urine protein assay by test strip, semi-quantitative 3+ NEGATIVE Urine glucose detection by automated test strip NE GATIVE NEGATIVE Erythrocytes detection in urine sediment by light micr oscopy 5+ NEGATIVE Urine ketones detection by automated test strip NE GATIVE NEGATIVE Urine nitrite detection by test strip NEGATIVE NEGATIVE Urine total bilirubin detection by test strip NEGA TIVE NEGATIVE Urine urobilinogen measurement by automated test strip (mass/volume) NORMAL NORMAL Urine leukocyte esterase detection by dipstick 3+ NEGATIVE Automated urine sediment erythrocyte cou nt by microscopy (number/high power field) [HPF] NRG Automated urine sediment leukocyte count by microscopy (number/high power field) TNTC NRG Bacteria detection in urine sediment by light microsco py NEGATIVE NRG Squamous epithelial cells detection in u rine sediment by light microscopy 0-2 NRG Crystals detection in urine sediment by light microsco py NONE NRG Casts detection in urine sediment by light microscopy NONE NRG Mucus detection in urine sediment by light microscopy NEGATIVE NRG Complete urinalysis with reflex to culture YES NRG Bacterial urine culture - 01/08/19 15:36 Bacterial urine culture 3 OR MORE NRG COLONY COUNT 50,000 CFU/ML NRG FTX;REPORTABLE GRAM POSITIVE ISOLATES; SUGGESTING NRG FREE TEXT ENTRY 2 PROBABLE COLLECTION CONTAMINATIO N WITH NRG FREE TEXT ENTRY 3 SKIN GUSTAVO. NO SUSCEPTIBILITY PE RFORMED. NRG Serum or plasma lactate measurement (mol es/volume) - 01/08/19 16:47 Serum or plasma lactate measurement (moles/volume) 1.58 mmol/L 0.50-2.00 Methicillin resistant Staphylococcus aur eus (MRSA) screening culture - 01/08/19 18:30 Methicillin resistant Staphylococcus aureus (MRSA) scr eening culture NEG NRG Capillary blood glucose measurement by g lucometer (mass/volume) - 01/08/19 20:48 Capillary blood glucose measurement by glucometer (mas s/volume) 189 mg/dL 70-110 Whole blood basic metabolic panel - 05/22 03:20 Serum or plasma sodium measurement (moles/volume) 140 mmol/L 135-145 Serum or plasma potassium measurement (moles/volume) 3.6 mmol/L 3.6-5.0 Serum or plasma chloride measurement (moles/volume) 107 mmol/L 98-107 Carbon dioxide 23 mmol/L 21-32 Serum or plasma anion gap determination (moles/volume) 10 mmol/L 5-14 Serum or plasma urea nitrogen measurement (mass/volume ) 17 mg/dL 7-18 Serum or plasma creatinine measurement (mass/volume) 0.88 mg/dL 0.60-1.30 Serum or plasma urea nitrogen/creatinine mass ratio 19 NRG Serum or plasma creatinine measurement w ith calculation of estimated glomerular filtration rate > NRG Serum or plasma glucose measurement (mass/volume) 142 mg/dL 70-105 Serum or plasma calcium measurement (mass/volume) 8.8 mg/dL 8.5-10.1 Serum or plasma phosphate measurement (m ass/volume) - 01/09/19 03:20 Serum or plasma phosphate measurement (mass/volume) 3.4 mg/dL 2.3-4.7 Magnesium - 01/09/19 03:20 Magnesium 1.8 mg/dL 1.8-2.4 Complete blood count (CBC) with automate d white blood cell (WBC) differential - 01/09/19 03:20 Blood leukocytes automated count (number/volume) 7.9 10*3/uL 4.3-11.0 Blood erythrocytes automated count (number/volume) 3.36 10*6/uL 4.35-5.85 Venous blood hemoglobin measurement (mass/volume) 11.2 g/dL 11.5-16.0 Blood hematocrit (volume fraction) 33 % 35-52 Automated erythrocyte mean corpuscular volume 99 [ foz_us] 80-99 Automated erythrocyte mean corpuscular h emoglobin (mass per erythrocyte) 33 pg 25-34 Automated erythrocyte mean corpuscular h emoglobin concentration measurement (mass/volume) 34 g/dL 32-36 Automated erythrocyte distribution width ratio 12. 8 % 10.0- 14.5 Automated blood platelet count [...] 10*3 1.0-4.0 Blood monocytes automated count (number/volume) 0. 6 10*3 0.0-1.0 Automated eosinophil count 0.3 10*3/uL 0 .0-0.3 Automated blood basophil count (count/volume) 0.0 10*3/uL 0.0-0.1 Complete blood count (CBC) with automate d white blood cell (WBC) differential - 01/10/19 04:30 Blood leukocytes automated count (number/volume) 6.9 10*3/uL 4.3-11.0 Blood erythrocytes automated count (number/volume) 3.50 10*6/uL 4.35-5.85 Venous blood hemoglobin measurement (mass/volume) 11.6 g/dL 11.5-16.0 Blood hematocrit (volume fraction) 35 % 35-52 Automated erythrocyte mean corpuscular volume 99 [ foz_us] 80-99 Automated erythrocyte mean corpuscular h emoglobin (mass per erythrocyte) 33 pg 25-34 Automated erythrocyte mean corpuscular h emoglobin concentration measurement (mass/volume) 33 g/dL 32-36 Automated erythrocyte distribution width ratio 12. 9 % 10.0- 14.5 Automated blood platelet count [...] 10*3 1.0-4.0 Blood monocytes automated count (number/volume) 0. 7 10*3 0.0-1.0 Automated eosinophil count 0.4 10*3/uL 0 .0-0.3 Automated blood basophil count (count/volume) 0.0 10*3/uL 0.0-0.1 Whole blood basic metabolic panel - 06/22 04:30 Serum or plasma sodium measurement (moles/volume) 141 mmol/L 135-145 Serum or plasma potassium measurement (moles/volume) 3.5 mmol/L 3.6-5.0 Serum or plasma chloride measurement (moles/volume) 112 mmol/L 98-107 Carbon dioxide 20 mmol/L 21-32 Serum or plasma anion gap determination (moles/volume) 9 mmol/L 5-14 Serum or plasma urea nitrogen measurement (mass/volume ) 12 mg/dL 7-18 Serum or plasma creatinine measurement (mass/volume) 0.78 mg/dL 0.60-1.30 Serum or plasma urea nitrogen/creatinine mass ratio 15 NRG Serum or plasma creatinine measurement w ith calculation of estimated glomerular filtration rate > NRG Serum or plasma glucose measurement (mass/volume) 162 mg/dL 70-105 Serum or plasma calcium measurement (mass/volume) 8.5 mg/dL 8.5-10.1 Complete blood count (CBC) with automate d white blood cell (WBC) differential - 01/11/19 04:30 Blood leukocytes automated count (number/volume) 6.7 10*3/uL 4.3-11.0 Blood erythrocytes automated count (number/volume) 3.19 10*6/uL 4.35-5.85 Venous blood hemoglobin measurement (mass/volume) 10.5 g/dL 11.5-16.0 Blood hematocrit (volume fraction) 32 % 35-52 Automated erythrocyte mean corpuscular volume 100 [foz_us] 80-99 Automated erythrocyte mean corpuscular h emoglobin (mass per erythrocyte) 33 pg 25-34 Automated erythrocyte mean corpuscular h emoglobin concentration measurement (mass/volume) 33 g/dL 32-36 Automated erythrocyte distribution width ratio 12. 8 % 10.0- 14.5 Automated blood platelet count [...] 10*3 1.0-4.0 Blood monocytes automated count (number/volume) 0. 6 10*3 0.0-1.0 Automated eosinophil count 0.4 10*3/uL 0 .0-0.3 Automated blood basophil count (count/volume) 0.0 10*3/uL 0.0-0.1 Whole blood basic metabolic panel - 01/02 04:30 Serum or plasma sodium measurement (moles/volume) 140 mmol/L 135-145 Serum or plasma potassium measurement (moles/volume) 3.5 mmol/L 3.6-5.0 Serum or plasma chloride measurement (moles/volume) 112 mmol/L 98-107 Carbon dioxide 21 mmol/L 21-32 Serum or plasma anion gap determination (moles/volume) 7 mmol/L 5-14 Serum or plasma urea nitrogen measurement (mass/volume ) 12 mg/dL 7-18 Serum or plasma creatinine measurement (mass/volume) 0.68 mg/dL 0.60-1.30 Serum or plasma urea nitrogen/creatinine mass ratio 18 NRG Serum or plasma creatinine measurement w ith calculation of estimated glomerular filtration rate > NRG Serum or plasma glucose measurement (mass/volume) 147 mg/dL 70-105 Serum or plasma calcium measurement (mass/volume) 8.5 mg/dL 8.5-10.1 Complete blood count (CBC) with automate d white blood cell (WBC) differential - 01/12/19 04:45 Blood leukocytes automated count (number/volume) 6.6 10*3/uL 4.3-11.0 Blood erythrocytes automated count (number/volume) 3.14 10*6/uL 4.35-5.85 Venous blood hemoglobin measurement (mass/volume) 10.3 g/dL 11.5-16.0 Blood hematocrit (volume fraction) 31 % 35-52 Automated erythrocyte mean corpuscular volume 98 [ foz_us] 80-99 Automated erythrocyte mean corpuscular h emoglobin (mass per erythrocyte) 33 pg 25-34 Automated erythrocyte mean corpuscular h emoglobin concentration measurement (mass/volume) 33 g/dL 32-36 Automated erythrocyte distribution width ratio 12. 8 % 10.0- 14.5 Automated blood platelet count [...] 10*3 1.0-4.0 Blood monocytes automated count (number/volume) 0. 5 10*3 0.0-1.0 Automated eosinophil count 0.4 10*3/uL 0 .0-0.3 Automated blood basophil count (count/volume) 0.0 10*3/uL 0.0-0.1 Whole blood basic metabolic panel - 01/02 10/22 04:45 Serum or plasma sodium measurement (moles/volume) 140 mmol/L 135-145 Serum or plasma potassium measurement (moles/volume) 3.4 mmol/L 3.6-5.0 Serum or plasma chloride measurement (moles/volume) 111 mmol/L 98-107 Carbon dioxide 20 mmol/L 21-32 Serum or plasma anion gap determination (moles/volume) 9 mmol/L 5-14 Serum or plasma urea nitrogen measurement (mass/volume ) 8 mg/dL 7-18 Serum or plasma creatinine measurement (mass/volume) 0.66 mg/dL 0.60-1.30 Serum or plasma urea nitrogen/creatinine mass ratio 12 NRG Serum or plasma creatinine measurement w ith calculation of estimated glomerular filtration rate > NRG Serum or plasma glucose measurement (mass/volume) 142 mg/dL 70-105 Serum or plasma calcium measurement (mass/volume) 8.4 mg/dL 8.5-10.1 Blood Culture - 02/07/19 17:00 PRELIM CULTURE RESULTS Blood Culture Negativ e, No Growth Day 1 FINAL CULTURE RESULTS Blood Culture Negative , No Growth Day 5 MEDIA PLATED Setup at 17:51 on 02/07/2019X [id number] Culture Media Position B27 CULTURE SOURCE Right Hand Blood Culture - 02/07/19 17:00 PRELIM CULTURE RESULTS Blood Culture Negativ e, No Growth Day 1 MEDIA PLATED Setup at 17:51 on 02/07/2019X0 [id number] Culture Media Position B27 CULTURE SOURCE Right Hand CBC with Auto Diff - 02/07/19 17:07 Baso% 0.00 % 0.00-2.50 Eos 1.0 K/uL 0.0-0.7 Eos% 4.7 % 0.0-7.0 Hct 36.2 % 36.0-46.0 Hgb 12.0 Result Verified by Repeat Analysis g/dL 13.0-15.0 Lym 0.34 K/uL 0.60-3.40 Lym% 1.6 % 10.0-50.0 MCH 32.4 pg 27.0-31.0 MCHC 33.1 g/dL 32.0-36.0 MCV 97.8 fL 80.0-97.0 [place]% 2.0 % 0.0-12.0 MPV 9.6 fL 7.4-10.0 Marie% 91.7 % 37.0-80.0 Plt 325 K/uL 150-400 RBC 3.70 M/uL 3.60-5.00 RDW 12.6 % 11.6-14.8 WBC 20.72 Result Verified by Repeat Analysis K/uL 5.00-10.00 Marie 18.98 K/uL 2.00-6.90 [place] 0.4 K/uL 0.0-0.9 Baso 0.0 K/uL 0.0-0.2 Urine Culture - 02/07/19 17:10 PRELIM CULTURE RESULTS No Growth 24 hours FINAL CULTURE RESULTS No Growth 48 hours MEDIA PLATED Setup at 17:50 on 02/07/2019 CULTURE SOURCE cath urine Blood Culture - 02/07/19 17:30 PRELIM CULTURE RESULTS Blood Culture Negativ e, No Growth Day 1 FINAL CULTURE RESULTS Blood Culture Negative , No Growth Day 5 MEDIA PLATED Setup at 17:52 on 02/07/2019X0 [id number] Culture Media Position C50 CULTURE SOURCE Right AC Blood Culture - 02/07/19 17:30 PRELIM CULTURE RESULTS Blood Culture Negativ e, No Growth Day 1 MEDIA PLATED Setup at 17:52 on 02/07/2019X0 [id number] Culture Media Position C50 CULTURE SOURCE Right [...] g/dL 6.0-8.3 Thyroid Stimulating Hormone - 02/21/19 1 6:34 TSH 1.89 mIU/mL 0.32-5.00 Complete blood count (CBC) with automate d white blood cell (WBC) differential - 03/12/19 13:30 Blood leukocytes automated count (number/volume) 12.7 10*3/uL 4.3-11.0 Blood erythrocytes automated count (number/volume) 3.69 10*6/uL 4.35-5.85 Venous blood hemoglobin measurement (mass/volume) 11.3 g/dL 11.5-16.0 Blood hematocrit (volume fraction) 34 % 35-52 Automated erythrocyte mean corpuscular volume 92 [ foz_us] 80-99 Automated erythrocyte mean corpuscular h emoglobin (mass per erythrocyte) 31 pg 25-34 Automated erythrocyte mean corpuscular h emoglobin concentration measurement (mass/volume) 33 g/dL 32-36 Automated erythrocyte distribution width ratio 13. 8 % 10.0- 14.5 Automated blood platelet count (count/volume) 283 10*3/uL 130-400 Automated blood platelet mean volume measurement 9.5 [foz_us] 7.4-10.4 Automated blood neutrophils/100 leukocytes 82 % 42-75 Automated blood lymphocytes/100 leukocytes 10 % 12-44 Blood monocytes/100 leukocytes 7 % 0-12 Automated blood eosinophils/100 leukocytes 2 % 0-10 Automated blood basophils/100 leukocytes 0 % 0-10 Blood neutrophils automated count (number/volume) 10.3 10*3 1.8-7.8 Blood lymphocytes automated count (number/volume) 1.2 10*3 1.0-4.0 Blood monocytes automated count (number/volume) 0. 9 10*3 0.0-1.0 Automated eosinophil count 0.2 10*3/uL 0 .0-0.3 Automated blood basophil count (count/volume) 0.0 10*3/uL 0.0-0.1 Comprehensive metabolic panel - 03/12/19 13:30 Serum or plasma sodium measurement (moles/volume) 134 mmol/L 135-145 Serum or plasma potassium measurement (moles/volume) 4.3 mmol/L 3.6-5.0 Serum or plasma chloride measurement (moles/volume) 102 mmol/L 98-107 Carbon dioxide 22 mmol/L 21-32 Serum or plasma anion gap determination (moles/volume) 10 mmol/L 5-14 Serum or plasma urea nitrogen measurement (mass/volume ) 20 mg/dL 7-18 Serum or plasma creatinine measurement (mass/volume) 1.27 mg/dL 0.60-1.30 Serum or plasma urea nitrogen/creatinine mass ratio 16 NRG Serum or plasma creatinine measurement w ith calculation of estimated glomerular filtration rate 41 NRG Serum or plasma glucose measurement (mass/volume) 166 mg/dL 70-105 Serum or plasma calcium measurement (mass/volume) 9.4 mg/dL 8.5-10.1 Serum or plasma total bilirubin measurement (mass/volu me) 0.6 mg/dL 0.1-1.0 Serum or plasma alkaline phosphatase marleni surement (enzymatic activity/volume) 80 U/L 40-136 Serum or plasma aspartate aminotransfera se measurement (enzymatic activity/volume) 22 U/L 5-34 Serum or plasma alanine aminotransferase measurement (enzymatic activity/volume) 16 U/L 0-55 Serum or plasma protein measurement (mass/volume) 6.3 g/dL 6.4-8.2 Serum or plasma albumin measurement (mass/volume) 3.7 g/dL 3.2-4.5 CALCIUM CORRECTED 9.6 mg/dL 8.5-10.1 Lipase - 03/12/19 13:30 Lipase 53 U/L 8-78 Complete urinalysis with reflex to cultu re - 03/12/19 13:45 Urine color determination YELLOW NRG Urine clarity determination CLEAR NR G Urine pH measurement by test strip 5 5-9 Specific gravity of urine by test strip 1.015 1.016-1.022 Urine protein assay by test strip, semi-quantitative 3+ NEGATIVE Urine glucose detection by automated test strip 1+ NEGATIVE Erythrocytes detection in urine sediment by light micr oscopy 5+ NEGATIVE Urine ketones detection by automated test strip 1+ NEGATIVE Urine nitrite detection by test strip NEGATIVE NEGATIVE Urine total bilirubin detection by test strip NEGA TIVE NEGATIVE Urine urobilinogen measurement by automated test strip (mass/volume) NORMAL NORMAL Urine leukocyte esterase detection by dipstick 3+ NEGATIVE Automated urine sediment erythrocyte cou nt by microscopy (number/high power field) TNTC NRG Automated urine sediment leukocyte count by microscopy (number/high power field) [HPF] NRG Bacteria detection in urine sediment by light microsco py FEW NRG Squamous epithelial cells detection in u rine sediment by light microscopy NONE NRG Crystals detection in urine sediment by light microsco py NONE NRG Casts detection in urine sediment by light microscopy NONE NRG Mucus detection in urine sediment by light microscopy NEGATIVE NRG Complete urinalysis with reflex to culture YES NRG Bacterial urine culture - 03/12/19 13:45 Bacterial urine culture 3 OR MORE NRG COLONY COUNT 20,000 CFU/ML NRG FTX;REPORTABLE (GRAM POSITIVE) SUGGESTING PROBABLE NRG FREE TEXT ENTRY 2 COLLECTION CONTAMINATION WITH SK IN GUSTAVO NRG FREE TEXT ENTRY 3 NO SUSCEPTIBILITY PERFORMED NRG Blood lactic acid measurement (moles/vol ume) - 03/12/19 15:54 Blood lactic acid measurement (moles/volume) 1.11 mmol/L 0.50-2.00 Bacterial blood culture - 03/12/19 15:54 Bacterial blood culture NG NRG Bacterial blood culture - 03/12/19 16:56 QUANTITY OF GROWTH Isolated NRG Bacterial blood culture [id number] NRG Capillary blood glucose measurement by g lucometer (mass/volume) - 03/12/19 21:32 Capillary blood glucose measurement by glucometer (mas s/volume) 105 mg/dL 70-110 Whole blood basic metabolic panel - 03/04 05:31 Serum or plasma sodium measurement (moles/volume) 136 mmol/L 135-145 Serum or plasma potassium measurement (moles/volume) 4.0 mmol/L 3.6-5.0 Serum or plasma chloride measurement (moles/volume) 105 mmol/L 98-107 Carbon dioxide 23 mmol/L 21-32 Serum or plasma anion gap determination (moles/volume) 8 mmol/L 5-14 Serum or plasma urea nitrogen measurement (mass/volume ) 16 mg/dL 7-18 Serum or plasma creatinine measurement (mass/volume) 1.01 mg/dL 0.60-1.30 Serum or plasma urea nitrogen/creatinine mass ratio 16 NRG Serum or plasma creatinine measurement w ith calculation of estimated glomerular filtration rate 53 NRG Serum or plasma glucose measurement (mass/volume) 106 mg/dL 70-105 Serum or plasma calcium measurement (mass/volume) 8.8 mg/dL 8.5-10.1 Complete blood count (CBC) with automate d white blood cell (WBC) differential - 03/13/19 05:51 Blood leukocytes automated count (number/volume) 7.8 10*3/uL 4.3-11.0 Blood erythrocytes automated count (number/volume) 3.27 10*6/uL 4.35-5.85 Venous blood hemoglobin measurement (mass/volume) 10.1 g/dL 11.5-16.0 Blood hematocrit (volume fraction) 30 % 35-52 Automated erythrocyte mean corpuscular volume 93 [ foz_us] 80-99 Automated erythrocyte mean corpuscular h emoglobin (mass per erythrocyte) 31 pg 25-34 Automated erythrocyte mean corpuscular h emoglobin concentration measurement (mass/volume) 33 g/dL 32-36 Automated erythrocyte distribution width ratio 14. 0 % 10.0- 14.5 Automated blood platelet count (count/volume) 242 10*3/uL 130-400 Automated blood platelet mean volume measurement 9.7 [foz_us] 7.4-10.4 Automated blood neutrophils/100 leukocytes 71 % 42-75 Automated blood lymphocytes/100 leukocytes 14 % 12-44 Blood monocytes/100 leukocytes 11 % 0-12 Automated blood eosinophils/100 leukocytes 4 % 0-10 Automated blood basophils/100 leukocytes 0 % 0-10 Blood neutrophils automated count (number/volume) 5.5 10*3 1.8-7.8 Blood lymphocytes automated count (number/volume) 1.1 10*3 1.0-4.0 Blood monocytes automated count (number/volume) 0. 9 10*3 0.0-1.0 Automated eosinophil count 0.3 10*3/uL 0 .0-0.3 Automated blood basophil count (count/volume) 0.0 10*3/uL 0.0-0.1 Capillary blood glucose measurement by g lucometer (mass/volume) - 03/13/19 11:27 Capillary blood glucose measurement by glucometer (mas s/volume) 91 mg/dL 70-110 Capillary blood glucose measurement by g lucometer (mass/volume) - 03/13/19 16:08 Capillary blood glucose measurement by glucometer (mas s/volume) 180 mg/dL 70-110 Methicillin resistant Staphylococcus aur eus (MRSA) screening culture - 03/13/19 17:48 Methicillin resistant Staphylococcus aureus (MRSA) scr eening culture NEG NRG Capillary blood glucose measurement by g lucometer (mass/volume) - 03/13/19 20:56 Capillary blood glucose measurement by glucometer (mas s/volume) 109 mg/dL 70-110 Complete blood count (CBC) with automate d white blood cell (WBC) differential - 03/14/19 05:00 Blood leukocytes automated count (number/volume) 8.2 10*3/uL 4.3-11.0 Blood erythrocytes automated count (number/volume) 3.37 10*6/uL 4.35-5.85 Venous blood hemoglobin measurement (mass/volume) 10.4 g/dL 11.5-16.0 Blood hematocrit (volume fraction) 31 % 35-52 Automated erythrocyte mean corpuscular volume 92 [ foz_us] 80-99 Automated erythrocyte mean corpuscular h emoglobin (mass per erythrocyte) 31 pg 25-34 Automated erythrocyte mean corpuscular h emoglobin concentration measurement (mass/volume) 33 g/dL 32-36 Automated erythrocyte distribution width ratio 13. 6 % 10.0- 14.5 Automated blood platelet count (count/volume) 271 10*3/uL 130-400 Automated blood platelet mean volume measurement 9.8 [foz_us] 7.4-10.4 Automated blood neutrophils/100 leukocytes 72 % 42-75 Automated blood lymphocytes/100 leukocytes 14 % 12-44 Blood monocytes/100 leukocytes 10 % 0-12 Automated blood eosinophils/100 leukocytes 4 % 0-10 Automated blood basophils/100 leukocytes 0 % 0-10 Blood neutrophils automated count (number/volume) 5.9 10*3 1.8-7.8 Blood lymphocytes automated count (number/volume) 1.1 10*3 1.0-4.0 Blood monocytes automated count (number/volume) 0. 8 10*3 0.0-1.0 Automated eosinophil count 0.3 10*3/uL 0 .0-0.3 Automated blood basophil count (count/volume) 0.0 10*3/uL 0.0-0.1 Comprehensive metabolic panel - 03/14/19 05:00 Serum or plasma sodium measurement (moles/volume) 141 mmol/L 135-145 Serum or plasma potassium measurement (moles/volume) 4.1 mmol/L 3.6-5.0 Serum or plasma chloride measurement (moles/volume) 109 mmol/L 98-107 Carbon dioxide 23 mmol/L 21-32 Serum or plasma anion gap determination (moles/volume) 9 mmol/L 5-14 Serum or plasma urea nitrogen measurement (mass/volume ) 12 mg/dL 7-18 Serum or plasma creatinine measurement (mass/volume) 0.90 mg/dL 0.60-1.30 Serum or plasma urea nitrogen/creatinine mass ratio 13 NRG Serum or plasma creatinine measurement w ith calculation of estimated glomerular filtration rate 60 NRG Serum or plasma glucose measurement (mass/volume) 90 mg/dL 70-105 Serum or plasma calcium measurement (mass/volume) 8.9 mg/dL 8.5-10.1 Serum or plasma total bilirubin measurement (mass/volu me) 0.3 mg/dL 0.1-1.0 Serum or plasma alkaline phosphatase marleni surement (enzymatic activity/volume) 79 U/L 40-136 Serum or plasma aspartate aminotransfera se measurement (enzymatic activity/volume) 27 U/L 5-34 Serum or plasma alanine aminotransferase measurement (enzymatic activity/volume) 16 U/L 0-55 Serum or plasma protein measurement (mass/volume) 5.4 g/dL 6.4-8.2 Serum or plasma albumin measurement (mass/volume) 3.2 g/dL 3.2-4.5 CALCIUM CORRECTED 9.5 mg/dL 8.5-10.1 Capillary blood glucose measurement by g lucometer (mass/volume) - 03/14/19 05:22 Capillary blood glucose measurement by glucometer (mas s/volume) 95 mg/dL 70-110 Capillary blood glucose measurement by g lucometer (mass/volume) - 03/14/19 11:08 Capillary blood glucose measurement by glucometer (mas s/volume) 119 mg/dL 70-110 Capillary blood glucose measurement by g lucometer (mass/volume) - 03/14/19 16:26 Capillary blood glucose measurement by glucometer (mas s/volume) 217 mg/dL 70-110 Capillary blood glucose measurement by g lucometer (mass/volume) - 03/14/19 20:31 Capillary blood glucose measurement by glucometer (mas s/volume) 129 mg/dL 70-110 Complete blood count (CBC) with automate d white blood cell (WBC) differential - 03/15/19 05:50 Blood leukocytes automated count (number/volume) 7.6 10*3/uL 4.3-11.0 Blood erythrocytes automated count (number/volume) 3.52 10*6/uL 4.35-5.85 Venous blood hemoglobin measurement (mass/volume) 10.8 g/dL 11.5-16.0 Blood hematocrit (volume fraction) 32 % 35-52 Automated erythrocyte mean corpuscular volume 92 [ foz_us] 80-99 Automated erythrocyte mean corpuscular h emoglobin (mass per erythrocyte) 31 pg 25-34 Automated erythrocyte mean corpuscular h emoglobin concentration measurement (mass/volume) 33 g/dL 32-36 Automated erythrocyte distribution width ratio 14. 0 % 10.0- 14.5 Automated blood platelet count (count/volume) 312 10*3/uL 130-400 Automated blood platelet mean volume measurement 9.3 [foz_us] 7.4-10.4 Automated blood neutrophils/100 leukocytes 72 % 42-75 Automated blood lymphocytes/100 leukocytes 16 % 12-44 Blood monocytes/100 leukocytes 8 % 0-12 Automated blood eosinophils/100 leukocytes 4 % 0-10 Automated blood basophils/100 leukocytes 0 % 0-10 Blood neutrophils automated count (number/volume) 5.5 10*3 1.8-7.8 Blood lymphocytes automated count (number/volume) 1.2 10*3 1.0-4.0 Blood monocytes automated count (number/volume) 0. 6 10*3 0.0-1.0 Automated eosinophil count 0.3 10*3/uL 0 .0-0.3 Automated blood basophil count (count/volume) 0.0 10*3/uL 0.0-0.1 Comprehensive metabolic panel - 03/15/19 05:50 Serum or plasma sodium measurement (moles/volume) 136 mmol/L 135-145 Serum or plasma potassium measurement (moles/volume) 4.0 mmol/L 3.6-5.0 Serum or plasma chloride measurement (moles/volume) 105 mmol/L 98-107 Carbon dioxide 21 mmol/L 21-32 Serum or plasma anion gap determination (moles/volume) 10 mmol/L 5-14 Serum or plasma urea nitrogen measurement (mass/volume ) 11 mg/dL 7-18 Serum or plasma creatinine measurement (mass/volume) 0.75 mg/dL 0.60-1.30 Serum or plasma urea nitrogen/creatinine mass ratio 15 NRG Serum or plasma creatinine measurement w ith calculation of estimated glomerular filtration rate > NRG Serum or plasma glucose measurement (mass/volume) 134 mg/dL 70-105 Serum or plasma calcium measurement (mass/volume) 9.2 mg/dL 8.5-10.1 Serum or plasma total bilirubin measurement (mass/volu me) 0.3 mg/dL 0.1-1.0 Serum or plasma alkaline phosphatase marleni surement (enzymatic activity/volume) 80 U/L 40-136 Serum or plasma aspartate aminotransfera se measurement (enzymatic activity/volume) 24 U/L 5-34 Serum or plasma alanine aminotransferase measurement (enzymatic activity/volume) 18 U/L 0-55 Serum or plasma protein measurement (mass/volume) 5.6 g/dL 6.4-8.2 Serum or plasma albumin measurement (mass/volume) 3.3 g/dL 3.2-4.5 CALCIUM CORRECTED 9.8 mg/dL 8.5-10.1 Capillary blood glucose measurement by g lucometer (mass/volume) - 03/15/19 11:36 Capillary blood glucose measurement by glucometer (mas s/volume) 123 mg/dL 70-110 Urinalysis - 04/01/19 15:35 Icotest Negative Negative Urine Volume Urine Volume Sufficient (10mL) Urine-Appearance Cloudy Clear Urine-Bacteria 1+ Urine-Bilirubin 1+ Negative Urine-Blood 3+ Negative Urine-Color Pre[place]i Colorless-Lt. [place] ow Urine-Glucose Trace Negative Urine-Ketones Trace Negative Urine-Leukocytes 1+ Negative Urine-Nitrite Negative Negative Urine-Other Culture to follow Urine-pH 5.5 5-8.5 Urine-Protein 3+ Negative Urine-RBC 5-10/HPF Urine-Specific [place] >1.030 1.000-1 .030 Urine-WBC 10-20/HPF Urobilinogen 0.2 0.2-1.0 Comprehensive Metabolic Panel - 04/01/19 15:36 Albumin 3.6 g/dL 3.6-5.1 ALP 85 U/L 35-130 ALT 13 U/L 6-45 Anion Gap 14 6-14 AST 15 U/L 2-40 BUN 25 mg/dL 5-25 Calcium 9.6 mg/dL 8.3-10.4 Chloride 104 mmol/L 95-114 CO2 22 mEq/L 22-33 Creat 1.10 mg/dL 0.50-1.50 eGFR 48 mL/min/1.73m2 >59 Globulin 2.8 g/dL 2.3-3.5 Glucose 159 mg/dL 70-110 Osmo 288 280-295 Potassium 4.2 mmol/L 3.5-5.3 Sodium 136 mmol/L 134-148 TBil 0.5 mg/dL 0.2-1.2 TP 6.4 g/dL 6.0-8.3 Urine Culture - 04/01/19 15:36 PRELIM CULTURE RESULTS No Growth 24 hours FINAL CULTURE RESULTS <10,000 Gram Positive Mixed Gustavo [id number] Skin Contaminant [id number] Further Workup done MEDIA PLATED Setup at 15:44 on 04/01/2019 Urine Culture - 04/01/19 15:36 PRELIM CULTURE RESULTS No Growth 24 hours MEDIA PLATED Setup at 15:44 on 04/01/2019 Comprehensive Metabolic Panel - 04/02/19 08:33 Albumin 3.1 g/dL 3.6-5.1 ALP 77 U/L 35-130 ALT 13 U/L 6-45 Anion Gap 14 6-14 AST 16 U/L 2-40 BUN 20 mg/dL 5-25 Calcium 9.1 mg/dL 8.3-10.4 Chloride 106 mmol/L 95-114 CO2 20 mEq/L 22-33 Creat 0.87 mg/dL 0.50-1.50 eGFR 63 mL/min/1.73m2 >59 Globulin 2.6 g/dL 2.3-3.5 Glucose 166 mg/dL 70-110 Osmo 287 280-295 Potassium 4.3 mmol/L 3.5-5.3 Sodium 136 mmol/L 134-148 TBil 0.5 mg/dL 0.2-1.2 TP 5.7 g/dL 6.0-8.3 Lactic Acid - 04/02/19 09:26 Lactic Acid 14.2 mg/dL 4.5-19.8 Comprehensive Metabolic Panel - 04/03/19 05:25 Albumin 2.6 g/dL 3.6-5.1 ALP 62 U/L 35-130 ALT 18 U/L 6-45 Anion Gap 11 6-14 AST 29 U/L 2-40 BUN 21 mg/dL 5-25 Calcium 8.5 mg/dL 8.3-10.4 Chloride 108 mmol/L 95-114 CO2 22 mEq/L 22-33 Creat 0.94 mg/dL 0.50-1.50 eGFR 57 mL/min/1.73m2 >59 Globulin 1.5 g/dL 2.3-3.5 Glucose 122 mg/dL 70-110 Osmo 287 280-295 Potassium 4.0 mmol/L 3.5-5.3 Sodium 137 mmol/L 134-148 TBil 0.4 mg/dL 0.2-1.2 TP 4.1 g/dL 6.0-8.3 Comprehensive Metabolic Panel - 04/04/19 05:35 Albumin 2.8 g/dL 3.6-5.1 ALP 73 U/L 35-130 ALT 22 U/L 6-45 Anion Gap 13 6-14 AST 35 U/L 2-40 BUN 15 mg/dL 5-25 Calcium 8.5 mg/dL 8.3-10.4 Chloride 107 mmol/L 95-114 CO2 21 mEq/L 22-33 Creat 0.73 mg/dL 0.50-1.50 eGFR 77 mL/min/1.73m2 >59 Globulin 2.0 g/dL 2.3-3.5 Glucose 104 mg/dL 70-110 Osmo 284 280-295 Potassium 3.8 mmol/L 3.5-5.3 Sodium 137 mmol/L 134-148 TBil 0.3 mg/dL 0.2-1.2 TP 4.8 g/dL 6.0-8.3 Comprehensive Metabolic Panel - 04/05/19 05:15 Albumin 2.9 g/dL 3.6-5.1 ALP 72 U/L 35-130 ALT 20 U/L 6-45 Anion Gap 13 6-14 AST 24 U/L 2-40 BUN 12 mg/dL 5-25 Calcium 8.9 mg/dL 8.3-10.4 Chloride 106 mmol/L 95-114 CO2 23 mEq/L 22-33 Creat 0.67 mg/dL 0.50-1.50 eGFR 85 mL/min/1.73m2 >59 Globulin 2.0 g/dL 2.3-3.5 Glucose 136 mg/dL 70-110 Osmo 287 280-295 Potassium 4.3 mmol/L 3.5-5.3 Sodium 138 mmol/L 134-148 TBil 0.4 mg/dL 0.2-1.2 TP 4.9 g/dL 6.0-8.3 Comprehensive Metabolic Panel - 04/24/19 16:03 Albumin 3.6 g/dL 3.6-5.1 ALP 78 U/L 35-130 ALT 10 U/L 6-45 Anion Gap 13 6-14 AST 16 U/L 2-40 BUN 19 mg/dL 5-25 Calcium 8.3 mg/dL 8.3-10.4 Chloride 104 mmol/L 95-114 CO2 24 mEq/L 22-33 Creat 0.83 mg/dL 0.50-1.50 eGFR 66 mL/min/1.73m2 >59 Globulin 2.2 g/dL 2.3-3.5 Glucose 131 mg/dL 70-110 Osmo 287 280-295 Potassium 3.9 mmol/L 3.5-5.3 Sodium 137 mmol/L 134-148 TBil 0.3 mg/dL 0.2-1.2 TP 5.8 g/dL 6.0-8.3 Urinalysis - 05/02/19 16:38 Icotest N/A Negative Urine Volume Urine Volume Sufficient (10mL) Urine-Appearance Cloudy Clear Urine-Bacteria 1+ Urine-Bilirubin Negative Negative Urine-Blood 3+ Negative Urine-Color Yellow Colorless-Lt. [place] ow Urine-Epithelial Cells 0-5/HPF Urine-Glucose Negative Negative Urine-Ketones Negative Negative Urine-Leukocytes 2+ Negative Urine-Nitrite Negative Negative Urine-Other Culture to follow Urine-pH 6.0 5-8.5 Urine-Protein 3+ Negative Urine-RBC 5-10/HPF Urine-Specific [place] 1.020 1.000-1 .030 Urine-WBC TNTC Urobilinogen 0.2 E.U./dL 0.2-1.0 Urine Culture - 05/02/19 16:38 PRELIM CULTURE RESULTS No Growth 24 hours FINAL CULTURE RESULTS No Growth 48 hours MEDIA PLATED Setup at 16:58 on 05/02/2019 CULTURE SOURCE Cc Comprehensive Metabolic Panel - 05/03/19 14:45 Albumin 3.4 g/dL 3.6-5.1 ALP 72 U/L 35-130 ALT 9 U/L 6-45 Anion Gap 16 6-14 AST 15 U/L 2-40 BUN 21 mg/dL 5-25 Calcium 9.9 mg/dL 8.3-10.4 Chloride 103 mmol/L 95-114 CO2 24 mEq/L 22-33 Creat 1.08 mg/dL 0.50-1.50 eGFR 49 mL/min/1.73m2 >59 Globulin 2.8 g/dL 2.3-3.5 Glucose 99 mg/dL 70-110 Osmo 290 280-295 Potassium 4.1 mmol/L 3.5-5.3 Sodium 139 mmol/L 134-148 TBil 0.3 mg/dL 0.2-1.2 TP 6.2 g/dL 6.0-8.3 Blood Culture - 05/03/19 14:45 PRELIM CULTURE RESULTS Blood Culture Negativ e, No Growth Day 1 FINAL CULTURE RESULTS Blood Culture Negative , No Growth Day 5 MEDIA PLATED Blood Culture Media Position A12 CULTURE SOURCE RAC Blood Culture - 05/03/19 16:45 PRELIM CULTURE RESULTS Blood Culture Negativ e, No Growth Day 1 FINAL CULTURE RESULTS Blood Culture Negative , No Growth Day 5 MEDIA PLATED Blood Culture Media Position A11 CULTURE SOURCE RAC Lactic Acid - 05/03/19 17:58 Lactic Acid 24.0 mg/dL 4.5-19.8 Lactic Acid - 05/04/19 00:30 Lactic Acid 17.9 mg/dL 4.5-19.8 Vancomycin Trough - 05/04/19 06:00 Vanco Trough 6.2 ug/mL 10.0-20.0 Lactic Acid - 05/04/19 09:24 Lactic Acid 17.3 mg/dL 4.5-19.8 Vancomycin Trough - 05/05/19 05:19 Vanco Trough 14.0 ug/mL 10.0-20.0 MRSA Screen - 05/05/19 08:00 FINAL CULTURE RESULTS MRSA Negative Nasal Culture MEDIA PLATED Setup at 08:15 on 05/05/2019 CBC with Auto Diff - 05/06/19 05:15 Baso% 0.20 % 0.00-2.50 Eos 0.5 K/uL 0.0-0.7 Eos% 8.4 % 0.0-7.0 Hct 28.7 % 36.0-46.0 Hgb 9.2 g/dL 13.0-15.0 Lym 0.69 K/uL 0.60-3.40 Lym% 12.0 % 10.0-50.0 MCH 31.4 pg 27.0-31.0 MCHC 32.1 g/dL 32.0-36.0 MCV 98.0 fL 80.0-97.0 [place]% 8.4 % 0.0-12.0 MPV 9.6 fL 7.4-10.0 Marie% 71.0 % 37.0-80.0 Plt 287 K/uL 150-400 RBC 2.93 M/uL 3.60-5.00 RDW 13.8 % 11.6-14.8 WBC 5.74 K/uL 5.00-10.00 Marie 4.08 K/uL 2.00-6.90 [place] 0.5 K/uL 0.0-0.9 Baso 0.0 K/uL 0.0-0.2 Comprehensive Metabolic Panel - 05/07/19 05:35 Albumin 3.0 g/dL 3.6-5.1 ALP 97 U/L 35-130 ALT 22 U/L 6-45 Anion Gap 15 6-14 AST 19 U/L 2-40 BUN 19 mg/dL 5-25 Calcium 9.2 mg/dL 8.3-10.4 Chloride 108 mmol/L 95-114 CO2 24 mEq/L 22-33 Creat 1.21 mg/dL 0.50-1.50 eGFR 43 mL/min/1.73m2 >59 Globulin 2.0 g/dL 2.3-3.5 Glucose 100 mg/dL 70-110 Osmo 295 280-295 Potassium 4.5 mmol/L 3.5-5.3 Sodium 142 mmol/L 134-148 TBil 0.2 mg/dL 0.2-1.2 TP 5.0 g/dL 6.0-8.3 Comprehensive Metabolic Panel - 05/08/19 05:05 Albumin 3.2 g/dL 3.6-5.1 ALP 92 U/L 35-130 ALT 18 U/L 6-45 Anion Gap 14 6-14 AST 16 U/L 2-40 BUN 19 mg/dL 5-25 Calcium 9.2 mg/dL 8.3-10.4 Chloride 104 mmol/L 95-114 CO2 26 mEq/L 22-33 Creat 1.21 mg/dL 0.50-1.50 eGFR 43 mL/min/1.73m2 >59 Globulin 1.9 g/dL 2.3-3.5 Glucose 94 mg/dL 70-110 Osmo 291 280-295 Potassium 4.4 mmol/L 3.5-5.3 Sodium 140 mmol/L 134-148 TBil 0.2 mg/dL 0.2-1.2 TP 5.1 g/dL 6.0-8.3 CEA - 05/09/19 05:25 CEA 6.1 ng/mL 0.0-4.7 Comprehensive Metabolic Panel - 05/09/19 05:25 Albumin 2.9 g/dL 3.6-5.1 ALP 80 U/L 35-130 ALT 15 U/L 6-45 Anion Gap 13 6-14 AST 15 U/L 2-40 BUN 24 mg/dL 5-25 Calcium 8.8 mg/dL 8.3-10.4 Chloride 107 mmol/L 95-114 CO2 25 mEq/L 22-33 Creat 1.19 mg/dL 0.50-1.50 eGFR 44 mL/min/1.73m2 >59 Globulin 1.6 g/dL 2.3-3.5 Glucose 82 mg/dL 70-110 Osmo 294 280-295 Potassium 4.1 mmol/L 3.5-5.3 Sodium 141 mmol/L 134-148 TBil 0.2 mg/dL 0.2-1.2 TP 4.5 g/dL 6.0-8.3 CEA - 05/09/19 05:25 CEA 6.1 NG/ML 0.0-4.7 Urinalysis - 05/12/19 16:52 Icotest N/A Negative Urine Volume Urine Volume Sufficient (10mL) Urine Yeast No Yeast present Urine-Appearance Cloudy Clear Urine-Bacteria Trace Urine-Bilirubin Negative Negative Urine-Blood 2+ Negative Urine-Color Yellow Colorless-Lt. [place] ow Urine-Epithelial Cells 0-5/HPF Urine-Glucose Negative Negative Urine-Ketones Trace Negative Urine-Leukocytes 1+ Negative Urine-Nitrite Negative Negative Urine-Other Culture to follow Urine-pH 6.0 5-8.5 Urine-Protein 2+ Negative Urine-RBC 20-40/HPF Urine-Specific [place] 1.025 1.000-1 .030 Urine-WBC TNTC Urobilinogen 0.2 0.2-1.0 Urine Culture - 05/12/19 16:52 PRELIM CULTURE RESULTS 20,000-50,000 Gram Po sitive KYLAH / ID to Follow MEDIA PLATED Setup at 16:59 on 05/12/2019 CULTURE SOURCE void Sensi - 05/12/19 16:52 FINAL CULTURE RESULTS Enterococcus raffinosus (Iso late 1) Ampicillin/Sulbactam >16/8 Ampicillin >8 Amoxicillin/K Clavulanate <=4/2 Ceftriaxone >32 Clindamycin <=0.5 Cefoxitin Screen N/R Ciprofloxacin >2 Daptomycin 4 Erythromycin >4 Nitrofurantoin <=32 Gentamicin 8 Gentamicin Synergy Screen <=500 Inducible Clindamycin N/R Levofloxacin >4 Linezolid <=1 Moxifloxacin >4 Oxacillin >2 Penicillin >8 Rifampin >2 Streptomycin Synergy <=1000 Synercid N/R Trimethoprim/ Sulfamethoxazole >2/38 Tetracycline >8 Vancomycin >16 CBC with Auto Diff - 05/15/19 11:05 Baso% 0.40 % 0.00-2.50 Eos 0.2 K/uL 0.0-0.7 Eos% 3.0 % 0.0-7.0 Hct 33.9 % 36.0-46.0 Hgb 11.0 g/dL 13.0-15.0 Lym 1.15 K/uL 0.60-3.40 Lym% 15.6 % 10.0-50.0 MCH 30.9 pg 27.0-31.0 MCHC 32.4 g/dL 32.0-36.0 MCV 95.2 fL 80.0-97.0 [place]% 5.7 % 0.0-12.0 MPV 8.9 fL 7.4-10.0 Marie% 75.3 % 37.0-80.0 Plt 386 K/uL 150-400 RBC 3.56 M/uL 3.60-5.00 RDW 13.1 % 11.6-14.8 WBC 7.35 K/uL 5.00-10.00 Marie 5.53 K/uL 2.00-6.90 [place] 0.4 K/uL 0.0-0.9 Baso 0.0 K/uL 0.0-0.2 CEA - 05/15/19 11:05 CEA 8.0 NG/ML 0.0-4.7 CEA - 05/15/19 11:05 CEA 8.0 ng/mL 0.0-4.7 Comprehensive Metabolic Panel - 05/17/19 10:50 Albumin 3.3 g/dL 3.6-5.1 ALP 84 U/L 35-130 ALT 9 U/L 6-45 Anion Gap 18 6-14 AST 14 U/L 2-40 BUN 38 mg/dL 5-25 Calcium 9.0 mg/dL 8.3-10.4 Chloride 103 mmol/L 95-114 CO2 20 mEq/L 22-33 Creat 1.85 mg/dL 0.50-1.50 eGFR 26 mL/min/1.73m2 >59 Globulin 2.0 g/dL 2.3-3.5 Glucose 209 mg/dL 70-110 Osmo 297 280-295 Potassium 4.1 mmol/L 3.5-5.3 Sodium 137 mmol/L 134-148 TBil 0.8 mg/dL 0.2-1.2 TP 5.3 g/dL 6.0-8.3 CBC with Manual Diff - 05/30/19 13:52 Band 1 Eosin 6 Hct 33.6 % 36.0-46.0 Hgb 11.1 g/dL 13.0-15.0 Lymph 16 MCH 31.6 pg 27.0-31.0 MCHC 33.0 g/dL 32.0-36.0 MCV 95.7 fL 80.0-97.0 [place] 6 Marie 71 Plt 373 K/uL 150-400 RBC 3.51 M/uL 3.60-5.00 RBC morph Normal WBC 7.98 K/uL 5.00-10.00 CEA - 06/06/19 14:26 CEA 4.1 ng/mL 0.0-4.7 Comprehensive Metabolic Panel - 06/06/19 14:26 Albumin 3.6 g/dL 3.6-5.1 ALP 76 U/L 35-130 ALT 12 U/L 6-45 Anion Gap 11 6-14 AST 15 U/L 2-40 BUN 19 mg/dL 5-25 Calcium 9.3 mg/dL 8.3-10.4 Chloride 106 mmol/L 95-114 CO2 26 mEq/L 22-33 Creat 1.05 mg/dL 0.50-1.50 eGFR 50 mL/min/1.73m2 >59 Globulin 2.5 g/dL 2.3-3.5 Glucose 82 mg/dL 70-110 Osmo 288 280-295 Potassium 4.2 mmol/L 3.5-5.3 Sodium 139 mmol/L 134-148 TBil 0.3 mg/dL 0.2-1.2 TP 6.1 g/dL 6.0-8.[address] [facility] - 06/06/19 14:26 CEA 4.1 NG/ML 0.0-4.7 Comprehensive Metabolic Panel - 06/20/19 15:35 Albumin 3.7 g/dL 3.6-5.1 ALP 78 U/L 35-130 ALT 13 U/L 6-45 Anion Gap 16 6-14 AST 18 U/L 2-40 BUN 27 mg/dL 5-25 Calcium 9.7 mg/dL 8.3-10.4 Chloride 108 mmol/L 95-114 CO2 21 mEq/L 22-33 Creat 1.02 mg/dL 0.50-1.50 eGFR 52 mL/min/1.73m2 >59 Globulin 2.4 g/dL 2.3-3.5 Glucose 118 mg/dL 70-110 Osmo 297 280-295 Potassium 4.4 mmol/L 3.5-5.3 Sodium 141 mmol/L 134-148 TBil 0.3 mg/dL 0.2-1.2 TP 6.1 g/dL 6.0-8.3 CBC with Manual Diff - 06/26/19 14:26 Band 1 Eosin 3 Hct 36.0 % 36.0-46.0 Hgb 11.6 g/dL 13.0-15.0 Lymph 19 MCH 30.8 pg 27.0-31.0 MCHC 32.2 g/dL 32.0-36.0 MCV 95.5 fL 80.0-97.0 [place] 3 Marie 74 Plt 263 K/uL 150-400 RBC 3.77 M/uL 3.60-5.00 RBC morph Normal WBC 7.25 K/uL 5.00-10.00 CBC with Manual Diff - 07/03/19 14:02 Eosin 3 Hct 35.1 % 36.0-46.0 Hgb 11.7 g/dL 13.0-15.0 Lymph 11 MCH 31.5 pg 27.0-31.0 MCHC 33.3 g/dL 32.0-36.0 MCV 94.4 fL 80.0-97.0 [place] 5 Marie 81 Plt 242 K/uL 150-400 RBC 3.72 M/uL 3.60-5.00 RBC morph Normal WBC 7.37 K/uL 5.00-10.00 CEA (Serial Monitor) - 07/10/19 08:15 CEA 3.8 NG/ML 0.0-4.7 PDF . Comprehensive Metabolic Panel - 07/10/19 08:15 Albumin 3.8 g/dL 3.6-5.1 ALP 77 U/L 35-130 ALT 9 U/L 6-45 Anion Gap 14 6-14 AST 13 U/L 2-40 BUN 20 mg/dL 5-25 Calcium 9.6 mg/dL 8.3-10.4 Chloride 106 mmol/L 95-114 CO2 24 mEq/L 22-33 Creat 0.89 mg/dL 0.50-1.50 eGFR 61 mL/min/1.73m2 >59 Globulin 2.2 g/dL 2.3-3.5 Glucose 113 mg/dL 70-110 Osmo 292 280-295 Potassium 4.0 mmol/L 3.5-5.3 Sodium 140 mmol/L 134-148 TBil 0.5 mg/dL 0.2-1.2 TP 6.0 g/dL 6.0-8.3 CEA (Serial Monitor) - 07/10/19 08:15 CEA 3.8 ng/mL 0.0-4.7 PDF . CEA (Serial Monitor) - 08/04/19 15:06 CEA 3.4 ng/mL 0.0-4.7 PDF . Thyroid Stimulating Hormone - 08/04/19 1 5:06 TSH 1.84 mIU/mL 0.32-5.00 Free T4 - 08/04/19 15:06 Free T4 1.08 ng/dL 0.81-1.61 CEA (Serial Monitor) - 08/04/19 15:06 CEA 3.4 NG/ML 0.0-4.7 PDF . CBC with Manual Diff - 08/04/19 15:09 Band 1 Eosin 1 Hct 35.4 % 36.0-46.0 Hgb 11.8 g/dL 13.0-15.0 Lymph 15 MCH 31.6 pg 27.0-31.0 MCHC 33.3 g/dL 32.0-36.0 MCV 94.9 fL 80.0-97.0 [place] 4 Marie 79 Plt 246 K/uL 150-400 RBC 3.73 M/uL 3.60-5.00 RBC morph Normal WBC 5.93 K/uL 5.00-10.00 Comprehensive Metabolic Panel - 08/28/19 14:58 Albumin 3.8 g/dL 3.6-5.1 ALP 74 U/L 35-130 ALT 9 U/L 6-45 Anion Gap 15 6-14 AST 16 U/L 2-40 BUN 22 mg/dL 5-25 Calcium 9.5 mg/dL 8.3-10.4 Chloride 106 mmol/L 95-114 CO2 25 mEq/L 22-33 Creat 1.03 mg/dL 0.50-1.50 eGFR 52 mL/min/1.73m2 >59 Globulin 2.3 g/dL 2.3-3.5 Glucose 103 mg/dL 70-110 Osmo 296 280-295 Potassium 4.1 mmol/L 3.5-5.3 Sodium 142 mmol/L 134-148 TBil 0.3 mg/dL 0.2-1.2 TP 6.1 g/dL 6.0-8.3 Comprehensive Metabolic Panel - 09/25/19 13:37 Albumin 4.0 g/dL 3.6-5.1 ALP 65 U/L 35-130 ALT 11 U/L 6-45 Anion Gap 14 6-14 AST 17 U/L 2-40 BUN 25 mg/dL 5-25 Calcium 9.4 mg/dL 8.3-10.4 Chloride 105 mmol/L 95-114 CO2 25 mEq/L 22-33 Creat 1.06 mg/dL 0.50-1.50 eGFR 50 mL/min/1.73m2 >59 Globulin 2.2 g/dL 2.3-3.5 Glucose 99 mg/dL 70-110 Osmo 293 280-295 Potassium 4.2 mmol/L 3.5-5.3 Sodium 140 mmol/L 134-148 TBil 0.5 mg/dL 0.2-1.2 TP 6.2 g/dL 6.0-8.3 CEA - 10/23/19 08:23 CEA 3.8 ng/mL 0.0-4.7 Comprehensive Metabolic Panel - 10/23/19 08:23 Albumin 3.7 g/dL 3.6-5.1 ALP 65 U/L 35-130 ALT 12 U/L 6-45 Anion Gap 16 6-14 AST 16 U/L 2-40 BUN 20 mg/dL 5-25 Calcium 9.8 mg/dL 8.3-10.4 Chloride 106 mmol/L 95-114 CO2 22 mEq/L 22-33 Creat 1.02 mg/dL 0.50-1.50 eGFR 52 mL/min/1.73m2 >59 Globulin 3.0 g/dL 2.3-3.5 Glucose 123 mg/dL 70-110 Osmo 293 280-295 Potassium 3.8 mmol/L 3.5-5.3 Sodium 140 mmol/L 134-148 TBil 0.5 mg/dL 0.2-1.2 TP 6.7 g/dL 6.0-8.3 CEA - 10/23/19 08:23 CEA 3.8 NG/ML 0.0-4.7 24Hr Urine-Protein - 10/30/19 11:50 24HR Ur-MTP 145.4 mg/24Hr 10.0-150.0 Total Volume 525 mL 0-4000 Urinalysis - 11/15/19 12:56 Icotest N/A Negative Urine Volume Urine Volume Sufficient (10mL) Urine Yeast No Yeast present Urine-Appearance Slightly Cloudy Clear Urine-Bacteria 1+ Urine-Bilirubin 1+ Negative Urine-Blood 2+ Negative Urine-Color Yellow Colorless-Lt. [place] ow Urine-Epithelial Cells 0-5/HPF Urine-Glucose Negative Negative Urine-Ketones Negative Negative Urine-Leukocytes 1+ Negative Urine-Mucus 1+ Urine-Nitrite Negative Negative Urine-Other Culture to follow Urine-pH 6.5 5-8.5 Urine-Protein 2+ Negative Urine-RBC 20-40/HPF Urine-Specific [place] 1.020 1.000-1 .030 Urine-WBC TNTC Urobilinogen 1.0 E.U./dL 0.2-1.0 Urine Culture - 11/15/19 12:56 PRELIM CULTURE RESULTS No Growth 24 hours FINAL CULTURE RESULTS 10,000-20,000 Mixed Fl ora [id number] Skin Contaminant [id number] Further Workup done CULTURE SOURCE URINE CULTURE Comprehensive Metabolic Panel - 11/15/19 13:45 Albumin 3.7 g/dL 3.6-5.1 ALP 91 U/L 35-130 ALT 42 U/L 6-45 Anion Gap 15 6-14 AST 38 U/L 2-40 BUN 23 mg/dL 5-25 Calcium 9.3 mg/dL 8.3-10.4 Chloride 104 mmol/L 95-114 CO2 22 mEq/L 22-33 Creat 1.23 mg/dL 0.50-1.50 eGFR 42 mL/min/1.73m2 >59 Globulin 2.8 g/dL 2.3-3.5 Glucose 93 mg/dL 70-110 Osmo 286 280-295 Potassium 3.8 mmol/L 3.5-5.3 Sodium 137 mmol/L 134-148 TBil 0.9 mg/dL 0.2-1.2 TP 6.5 g/dL 6.0-8.3 Blood Culture - 11/15/19 13:45 PRELIM CULTURE RESULTS Blood Culture Negativ e, No Growth Day 1 FINAL CULTURE RESULTS Blood Culture Negative , No Growth Day 5 CULTURE SOURCE BLOOD CULTURE #1; IV START C.difficile, DNA Amplification - 0 13:57 C.difficile, DNA Amplification NEGATIVE: No DNA evidence of toxogenic C. difficile detected. Negative Blood Culture - 11/15/19 13:57 PRELIM CULTURE RESULTS Blood Culture Negativ e, No Growth Day 1 FINAL CULTURE RESULTS Blood Culture Negative , No Growth Day 5 CULTURE SOURCE BLOOD CULTURE #2; LEFT ARM Thyroid Stimulating Hormone - 11/22/19 1 2:30 TSH 1.48 mIU/mL 0.32-5.00 Comprehensive Metabolic Panel - 11/22/19 12:34 Albumin 3.6 g/dL 3.6-5.1 ALP 72 U/L 35-130 ALT 27 U/L 6-45 Anion Gap 18 6-14 AST 23 U/L 2-40 BUN 22 mg/dL 5-25 Calcium 9.5 mg/dL 8.3-10.4 Chloride 105 mmol/L 95-114 CO2 21 mEq/L 22-33 Creat 1.04 mg/dL 0.50-1.50 eGFR 51 mL/min/1.73m2 >59 Globulin 2.2 g/dL 2.3-3.5 Glucose 147 mg/dL 70-110 Osmo 295 280-295 Potassium 4.3 mmol/L 3.5-5.3 Sodium 140 mmol/L 134-148 TBil 0.4 mg/dL 0.2-1.2 TP 5.8 g/dL 6.0-8.3 Comprehensive Metabolic Panel - 01/22/20 09:17 Albumin 3.7 g/dL 3.6-5.1 ALP 62 U/L 35-130 ALT 9 U/L 6-45 Anion Gap 14 6-14 AST 14 U/L 2-40 BUN 30 mg/dL 5-25 Calcium 9.8 mg/dL 8.3-10.4 Chloride 106 mmol/L 95-114 CO2 22 mEq/L 22-33 Creat 1.24 mg/dL 0.50-1.50 eGFR 42 mL/min/1.73m2 >59 Globulin 2.7 g/dL 2.3-3.5 Glucose 130 mg/dL 70-110 Osmo 293 280-295 Potassium 4.1 mmol/L 3.5-5.3 Sodium 138 mmol/L 134-148 TBil 0.4 mg/dL 0.2-1.2 TP 6.4 g/dL 6.0-8.3 CEA - 01/22/20 09:17 CEA 3.3 NG/ML 0.0-4.7 CEA - 01/22/20 09:17 CEA 3.3 ng/mL 0.0-4.7 24Hr Urine-Protein - 01/22/20 10:20 24HR Ur-MTP 237.6 mg/24Hr 10.0-150.0 Total Volume 450 mL 0-4000 Encounters ACCT No. Visit Date/Time Discharge Status Pt. Type Provider Facility Loc./Unit Complaint [id number] 10/26/2019 03:06:00 Document Registration [id number] 02/11/2019 09:00:00 Document Registration [id number] 02/07/2019 07:25:00 Document Registration [id number] 01/28/2019 11:30:00 9 23:59:[address]NEY [facility] [id number] 01/04/2019 07:17:42 9 23:59:59 DIS Outpatient FAUSTO SIMONS [facility] RAD [id number] 07/19/2018 15:52:43 8 23:59:59 DIS Outpatient ABDI CHAKRABORTY [facility] [id number] 11/04/2017 14:51:40 8 23:59:59 DIS Outpatient ABDI CHAKRABORTY [facility] [id number] 03/31/2017 10:45:00 7 23:59:59 DIS Outpatient ABDI CHAKRABORTY [facility] [id number] 03/09/2017 13:11:00 7 23:59:59 CLS Preadmit [facility] D&C [id number] 03/03/2017 11:58:36 7 23:59:59 CLS Preadmit ABDI CHAKRABORTY [facility] RAD CHRONIC VAGINAL DISC HARGE, POST MENOPAUSAL [id number] 01/31/2018 02:00:23 Document Registration [id number] 03/12/2017 02:01:15 Document Registration [id number] 03/03/2017 11:54:39 Document Registration [id number] 03/03/2017 02:00:44 Document Registration [id number] 02/03/2017 14:48:22 Document Registration [id number] 01/31/2017 02:01:30 Document Registration [id number] 09/09/2016 14:16:32 Document Registration [id number] 09/09/2016 13:58:54 Document Registration [id number] 09/09/2016 02:00:22 Document Registration [id number] 07/10/2019 08:11:00 Document Registration [id number] 02/07/2019 15:00:00 Document Registration [id number] 05/11/2019 10:10:00 Document Registration [id number] 03/12/2019 17:19:00 019 13:05:00 DIS Inpatient LEDESMA , VELASQUEZ V [facility] 4TH UTI,URETHRAL OBSTRUCTIO N,ABD PAIN [id number] 01/08/2019 16:19:00 14:50:00 DIS Inpatient LEDESMA , VELASQUEZ V [facility] 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,PE,HX UTERINE CA [id number] 01/04/2019 17:35:00 019 21:08:00 DIS Emergency BISMARK DO NYDIA K Vi a [facility] ER DIZZY / BLACKING OUT [id number] 02/01/2020 10:00:00 P EN Preadmit GERALD THORNTON MD [facility] SDC LEFT URETERAL OBSTRUCTION [id number] 01/29/2020 06:05:[address] Outpatient GERALD THORNTON MD [facility] PREOP LEFT URETERAL OBSTRCTION [id number] 06/10/2019 10:09:00 Document Registration [id number] 08/12/2019 19:07:00 Document Registration [id number] 01/22/2020 09:10:00 01/22/2020 23:59 :00 DIS Outpatient Velasquez Ledesma [id number] 12/11/2019 10:47:00 12/11/2019 23:59 :00 DIS Outpatient Gerald Thornton [id number] 11/22/2019 12:23:00 11/22/2019 23:59 :00 DIS Outpatient Velasquez Ledesma [id number] 11/15/2019 12:17:00 11/15/2019 18:10 :00 DIS Outpatient OLEG JONES [id number] 10/30/2019 11:48:00 10/30/2019 23:59 :00 DIS Outpatient PAUL MAYERS [id number] 10/23/2019 08:14:00 10/23/2019 23:59 :00 DIS Outpatient NABBOUT, PAUL [id number] 10/12/2019 12:55:00 10/12/2019 23:59 :00 DIS Outpatient Velasquez Ledesma [id number] 10/06/2019 13:42:00 10/06/2019 23:59 :00 DIS Outpatient Velasquez Ledesma [id number] 09/25/2019 13:32:00 09/25/2019 23:59 :00 DIS Outpatient Velasquez Ledesma [id number] 08/28/2019 14:51:00 08/28/2019 23:59: 00 DIS Outpatient NABBOUT, PAUL [id number] 08/04/2019 14:58:00 08/04/2019 23:59: 00 DIS Outpatient NABBOUT, PAUL [id number] 07/10/2019 08:11:00 07/10/2019 23:59: 00 DIS Outpatient NABBOUT, PAUL [id number] 07/03/2019 13:58:00 07/03/2019 23:59: 00 DIS Outpatient NABBOUT, PAUL [id number] 06/26/2019 14:16:00 06/26/2019 23:59: 00 DIS Outpatient NABBOUT, PAUL [id number] 06/20/2019 15:28:00 06/20/2019 23:59: 00 DIS Outpatient NABBOUT, PAUL [id number] 06/13/2019 13:45:00 06/13/2019 23:59: 00 DIS Outpatient Velasquez Ledesma [id number] 06/06/2019 14:21:00 06/06/2019 23:59: 00 DIS Outpatient NABBOUT, PAUL [id number] 05/30/2019 13:49:00 05/30/2019 23:59: 00 DIS Outpatient NABBOUT, PAUL [id number] 05/17/2019 10:48:00 05/17/2019 23:59: 00 DIS Outpatient NABBOUT, PAUL [id number] 05/15/2019 10:02:00 05/15/2019 23:59: 00 DIS Outpatient Velasquez Ledesma [id number] 05/12/2019 16:51:00 05/12/2019 23:59: 00 DIS Outpatient Velasquez Ledesma [id number] 05/06/2019 13:00:00 05/09/2019 11:30: 00 DIS Inpatient [facility] [id number] 05/03/2019 14:36:00 05/06/2019 13:00: 00 DIS Inpatient [facility] [id number] 05/02/2019 15:50:00 05/02/2019 17:10: 00 DIS Outpatient Teresa [facility] ER [id number] 04/24/2019 15:54:00 04/24/2019 23:59: 00 DIS Outpatient Velasquez Ledesma [id number] 04/01/2019 15:07:00 2019 13:45: 00 DIS Inpatient [facility]G [id number] 02/21/2019 16:24:00 02/21/2019 23:59: 00 DIS Outpatient Velasquez Led[facility]ma [id number] 02/11/2019 09:00:00 02/14/2019 12:40: 00 DIS Inpatient [facility] [id number] 02/07/2019 07:25:00 02/11/2019 09:00: 00 DIS Inpatient [facility] ICU [id number] 01/28/2019 11:49:00 01/28/2019 17:45: 00 DIS Outpatient [facility] ER [id number] 07/13/2018 15:23:00 07/13/2018 23:59: 00 DIS Outpatient ABDI CHAKRABORTY [id number] 02/07/2019 14:44:39 Document Registration [id number] 06/02/2018 13:46:00 Document Registration [id number] 01/24/2020 08:09:00 Document Registration [id number] 04/01/2019 17:15:00 Document Registration [id number] 05/17/2019 10:10:00 Document Registration [id number] 07/12/2019 17:08:00 Document Registration
[2020-02-01] MEDS ORDERED: LACTATED RINGERS 1,000 ML IV PRN (08:21)
[2020-02-01] MEDS ORDERED: cefTRIAXone FOR IV USE 1,000 MG in WATER (STERILE) FOR INJECTION 10 ML IV ONE (08:30)
[2020-02-01] MEDS ORDERED: CATHETER FLUSH 10 ML SYR IV PRN (08:45)
[2020-02-01] MEDS ORDERED: IOPAMIDOL 61% 30 ML (ISOVUE 300) VIAL ONE (08:58)
[2020-02-01] MEDS ORDERED: MIDAZOLAM 2 MG/2 ML (VERSED) VIAL ONE (09:11)
[2020-02-01] MEDS ORDERED: fentaNYL INJECTION 100 MCG/2 ML AMP ONE (09:12)
--- NOTE | 2020-02-01 09:33 | Progress Note-Pre Operative ---
Pre-Operative Progress Note H&P Reviewed The H&P was reviewed, patient examined and no changes noted. Date Seen by Provider: Feb 01, 2020 Time Seen by Provider: :32 Date H&P Reviewed: Feb 01, 2020 Time H&P Reviewed: 09:32 Pre-Operative Diagnosis: LT URETERAL OBSTRUCTION GERALD DUBOIS MD Feb 01, 2020 09:33
--- NOTE | 2020-02-01 09:33 | Progress Note-Post Operative ---
Post-Operative Progess Note Surgeon (s)/Cadmium Liquor Maker (s) Surgeon GERALD DUBOIS MD Cadmium Liquor Maker: NONE Pre-Operative Diagnosis LT URETERAL OBSTRUCTION Post-Operative Diagnosis SAME Procedure & Operative Findings Date of Procedure 02/01/20 Procedure Performed/Findings CYSTOSCOPY AND INSERTION OF LT STENT Anesthesia Type GENERAL Estimated Blood Loss Estimated blood loss (mL): NONE Specimens/Packing Specimens Removed NONE Packing: NONE GERALD DUBOIS MD Feb 01, 2020 09:33
--- NOTE | 2020-02-01 09:36 | Discharge Inst-Urology ---
Discharge Inst-Urology Reconcile Patient Problems Problems Reviewed?: Yes Final Diagnosis LT URETERAL OBSTRUCTION Patient Instructions/Follow Up Plan/Assessment/Instructions Please make appointment to been seen in office in 2 weeks. Tomorrow if no bleeding, may resume Eliquis Increase oral fluids for 48 hours and then as needed. Diet and Activity as tolerated. If questions or concerns contact your physician Or seek help at emergency department. GERALD DUBOIS MD Feb 01, 2020 09:36
[2020-02-01] MEDS ORDERED: proPOfol 200 MG/20 ML (DIPRIVAN) VIAL IV ONE (10:06)
[2020-02-01] MEDS ORDERED: LIDOCAINE PF 2% 5 ML (XYLOCAINE) VIAL ONE (10:06)
[2020-02-01] MEDS ORDERED: ONDANSETRON 4 MG/2 ML (SDV) Z0FRAN ONE (10:06)
[2020-02-01] MEDS ORDERED: SEVOFLURANE (ULTANE) 15 ML INHAL SOLN ONE (10:07)
--- NOTE | 2020-02-01 10:23 | Anesthesia-General Post-Op ---
General Patient Condition Mental Status/LOC: Same as Preop Cardiovascular: Satisfactory Nausea/Vomiting: Absent Respiratory: Satisfactory Pain: Controlled Complications: Absent Post Op Complications Complications None Follow Up Care/Instructions Patient Instructions None needed. Anesthesia/Patient Condition Patient Condition Patient is doing well, no complaints, stable vital signs, no apparent adverse anesthesia problems. No complications reported per nursing. GERARDO DOW CRNA Feb 01, 2020 10:23
[2020-02-01] MEDS ORDERED: fentaNYL INJECTION 100 MCG/2 ML AMP IVP ONE (10:30)
[2020-02-01] MEDS ORDERED: ONDANSETRON 4 MG/2 ML (SDV) Z0FRAN IVP PRN (10:30)
--- NOTE | 2020-02-01 13:20 | OPERATIVE REPORT ---
DATE OF SERVICE: 02/01/2020 PREOPERATIVE DIAGNOSIS: Left ureteral obstruction. POSTOPERATIVE DIAGNOSIS: Left ureteral obstruction. OPERATION PERFORMED: Cystoscopy and insertion of left ureteral stent. SURGEON: Matias Dubois MD ANESTHESIA: General. COMPLICATIONS: None. DESCRIPTION OF PROCEDURE: Under satisfactory general anesthesia, the patient in lithotomy position, genitalia were prepped and draped in the usual sterile fashion. Cystoscope was introduced in the bladder. The bladder was essentially normal except of a slow efflux on the left side. Using the foroblique lens, I passed a 6-Indian 26 cm double-J stent all the way up to the left kidney with very minimal manipulation. The guidewire was removed and the stent was seen draining nicely proximally fluoroscopically and distally endoscopically. Bladder was evacuated and the cystoscope was removed. The patient tolerated the procedure and anesthesia well and was sent to recovery room in stable condition. Job ID: [id number] DocumentID: [id number] Dictated Date: 02/01/2020 10:16:51 Basket Hand Braider Date: 02/01/2020 13:20:30 Dictated By: MATIAS DUBOIS MD
== END 2020-02-01 12:02 | disposition home or self-care (01) ==
LOC: SDC 08:10
PROVIDERS: ATTEND Urology
DX: N13.5 Crossing vessel and stricture of ureter without hydronephrosis (principal); I48.91 Unspecified atrial fibrillation; E78.5 Hyperlipidemia, unspecified; G62.9 Polyneuropathy, unspecified; I10 Essential (primary) hypertension; Z88.2 Allergy status to sulfonamides; Z79.899 Other long term (current) drug therapy; Z79.01 Long term (current) use of anticoagulants; Z85.42 Personal history of malignant neoplasm of other parts of uterus; Z87.891 Personal history of nicotine dependence; Z90.710 Acquired absence of both cervix and uterus
CPT/HCPCS: 87081